=== PATIENT | female | born 1960 | race Caucasian/White ===

== ENCOUNTER 2023-04-02 09:17 | Outpatient (REF) | payer BC, SELFPAY ==
[2023-04-02 11:14] LABS: D Dimer High Sensitivity 184 NG/ML
[2023-04-02 11:49] LABS: Erythrocyte Sedimentation Rate 20 MM/HR (0-20)
[2023-04-02 12:07] LABS: Anion Gap 15 (12-20); Blood Urea Nitrogen 16 mg/dL (9-16); Calcium 10.2 mg/dL (8.4-10.2); Carbon Dioxide 25 mmol/L (22-29); Chloride 105 mmol/L (96-108); Estimated Glomerular Filt Rate > 60; Glucose Random 91 mg/dL (60-115); Potassium 4.2 mmol/L (3.3-5.1); Sodium 141 mmol/L (135-145)
[2023-04-02 15:32] LABS: Basophils Percent Auto 0.9 % (0-2); Eosinophils Absolute Auto 0.1 X10*3/uL (0.0-0.4); Eosinophils Percent Auto 2.5 % (0-4); Hematocrit 38.3 % (37.0-47.0); Hemoglobin 13.1 g/dl (12.0-16.0); Imm Gran Abs Auto 0.01 X10*3/uL (0.00-0.03); Imm Gran Pct Auto 0.2 % (0.0-0.4); Lymphocytes Absolute Auto 1.3 X10*3/uL (1.2-4.9); Lymphocytes Percent Auto 29.2 % (20-40); MANUAL DIFF FLAG NO; Mean Corpuscular HGB Conc 34.2 g/dl (31.0-35.0); Mean Corpuscular Hemoglobin 31.4 pg (27.0-33.0); Mean Corpuscular Volume 91.8 fL (80.0-98.0); Mean Platelet Volume 10.3 fL (9.4-12.3); Monocytes Absolute Auto 0.3 X10*3/uL (0.1-1.2); Monocytes Percent Auto 6.9 % (2-11); Neutrophils Absolute Auto 2.7 x10*3/uL (2.0-8.3); Neutrophils Percent Auto 60.3 % (45-73); Platelet Count 306 X10*3/uL (160-400); Red Blood Count 4.17 X10*6/uL (4.20-5.50); Red Cell Distribution Width 12.6 % (11.0-16.0); White Blood Count 4.5 X10*3/uL (4.8-10.8)
[2023-04-03 04:49] LABS: HIV AB/AG Nonreactive (Nonreactive); HIV Num 1 0.06 S/CO (0.00-0.99)
[2023-04-04 18:04] LABS: IgA 338 mg/dL (47-310); IgG 982 mg/dL (600-1640); IgM 104 mg/dL (50-300)
[2023-04-04 22:13] LABS: Anti Nuclear Antibody Screen POSITIVE (NEGATIVE)
[2023-04-05 16:53] LABS: Anti DNA DS Antibody <1 IU/mL; Antibody to SS-A Antigen <1.0 NEG AI (<1.0 NEG); Antibody to SS-B Antigen <1.0 NEG AI (<1.0 NEG); Myeloperoxidase Antibody <1.0 AI; Proteinase 3 PR3 Antibodies <1.0 AI; Scleroderma 70 Antibody <1.0 NEG AI (<1.0 NEG)
[2023-04-08 15:03] LABS: Angiotensin Converting Enzyme 30.3 U/L (9-67)
[2023-04-11 01:04] LABS: Asperg fumigatus Precip Abs NEGATIVE (NEGATIVE); Micropoly faeni Abs NEGATIVE (NEGATIVE); Pigeon serum Abs NEGATIVE (NEGATIVE); Saccharo pora viridis Abs NEGATIVE (NEGATIVE); Thermo candidus Abs NEGATIVE (NEGATIVE); Thermoa vulgaris #1 NEGATIVE (NEGATIVE)
== END 2023-04-02 09:18 | disposition home or self-care (01) ==
LOC: HO.LAB 09:17
PROVIDERS: PCP Internal Medicine; Visit Provider Hospitalist
DX: Z11.4 Encounter for screening for human immunodeficiency virus [HIV] (principal); J18.9 Pneumonia, unspecified organism; J45.909 Unspecified asthma, uncomplicated; J96.00 Acute respiratory failure, unspecified whether with hypoxia or hypercapnia; R00.0 Tachycardia, unspecified; T78.40XA Allergy, unspecified, initial encounter; R91.8 Other nonspecific abnormal finding of lung field
CPT/HCPCS: 36415; 80048; 82164; 82784; 82785; 85025; 85379; 85652; 86003; 86021; 86038; 86039; 86225; 86235; 86331; 86606; 86609; 87389

== ENCOUNTER 2023-04-25 06:01 | Day surgery (SDC) | payer BC, SELFPAY ==
[2023-04-25] VITALS (7 sets, daily range): BP systolic 95–112; BP diastolic 40–70; PULSE 73–95; RESP 15–18; TEMP 36.2–36.5; O2SAT 96–100; BMI 33.6
--- NOTE | ~2023-04-25 | XR_ITS ---
EXAMINATION: XR CHEST CLINICAL INFORMATION: Status post right lung biopsies COMPARISON: MR chest 08/19/2020 TECHNIQUE: Frontal view of the chest was obtained. FINDINGS: Heart size normal. No evidence of CHF. No pneumothorax is seen. There is mild elevation of the right hemidiaphragm and bibasilar atelectasis. No gross focal consolidation. No pleural effusions. Surgical clips are noted in the gallbladder fossa. Degenerative changes are seen in the spine. XR/XR chest 1V IMPRESSION: No acute intrathoracic disease.
[2023-04-25] MEDS: Lactated Ringers 1,000 ML 100 ML IVCONT (06:37)
--- NOTE | 2023-04-25 07:05 | HO.ANESPROP2 ---
HPI - Anesthesia Eval Consult details Narrative: for bronchoscopy PMFSH Active Problems Active Problems: All Active Problems (Updated 04/02/23 @ 10:07 by Tahir Mendez MD) Asthma (Acute) Allergies (Acute) Acute respiratory failure (Acute) Tachycardia (Acute) ILD (interstitial lung disease) (Acute) Pneumonia (Acute) Past Medical History Medical History Acute respiratory failure Allergies Asthma ILD (interstitial lung disease) Pneumonia Tachycardia Family History Family history of problems with anesthesia: No Surgical History Surgical History (Updated 04/25/23 @ 06:13 by Maude Keith, CAMERON) Hx of breast reduction, elective Hx of cholecystectomy Hx of colonoscopy Hx of esophagogastroduodenoscopy Hx of foot surgery History of Problems with Anesthesia: No Social History Social History (Updated 04/02/23 @ 09:29 by MANNIE French) Patient Tobacco Use Status: Never used Tobacco Use of substances other than those prescribed or required for medical reasons: No Are you DNR?: No Advance Directives: No Advance Directives Information Provided: Yes Meds Allergies Allergy/AdvReac Type Severity Reaction Status Date / Time codeine Allergy Severe Vomiting Verified 04/25/23 06:19 Active Medications: Current Medications Albuterol Sulfate (Albuterol Sulfate (0.083%) 2.5 Mg/3 Ml Vial.Neb) 2.5 mg INHALE ONCE PRN PRN Reason: Shortness of Breath/Wheezing Lactated Ringer's (Lr) 1,000 mls @ 100 mls/hr IVCONT .Q10H MICHELLE Last Admin: 04/25/23 06:37 Dose: 100 mls/hr Home Medications Medication Instructions Recorded Confirmed Last Taken Type albuterol sulfate 90 mcg/actuation 2 puff inhalation Q4-6H PRN 04/02/23 04/25/23 Unknown History aerosol inhaler Shortness Of Breath Or Wheezing bempedoic acid 180 mg tablet 180 mg PO DAILY 04/02/23 04/25/23 Unknown History (Nexletol) aspirin 81 mg tablet 81 mg PO DAILY 04/25/23 04/25/23 Unknown History Exam Exam Date and Time: April 25, 2023 0705 Height,Weight and Vital Signs: Height 5 ft 6 in Weight 94.347 kg Last Vital Signs Temp 97.7 F 04/25/23 06:21 Pulse 86 07/13/23 06:21 Resp 15 04/25/23 06:21 BP 110/63 04/25/23 06:21 Pulse Ox 99 04/25/23 06:21 O2 Del Method Room Air 04/25/23 06:21 Airway Mallampati Class: I TM Dist: >3cm Neck ROM: Full Loose/Missing/Broken Teeth: No Heart: ok Lungs: ok Assessment and Plan Assessment Anesthesia Assessment: Anesthesia Plan Discussed and Chart Reviewed Final Anesthetic Review Family History of Problems with Anesthesia: No History of Problems with Anesthesia: No NPO: Yes ASA Class: III Final Preanesthetic Review: No Changes in Pt Med Stat, Meds/Allgs Chart Reviewed, Consent Obtained/Reviewed and Anes Risks/Benef Reviewed Patient Risk: Intermediate Procedure Risk: Intermediate Anesthetic Plan Anesthetic Plan: GA and Agree w/ Assess. and Plan Disposition: Standard PACU
--- NOTE | 2023-04-25 07:29 | MHC.SHP ---
Pre-Procedural Eval Section A Date of Service: 04/25/23 The patient is an INPATIENT: No Changes since office visit: No Cold of Flu in the past 2 weeks, No New Medical Problems, No Changes in Medication and No Patient answered all questions The History & Physical has been completed within 30 days and I have reviewed it.: Yes Section B Chief Complaint: Pneumonia, unspecified organism Details of Present Illness: 62 y/o with worsening dyspnea. Found to have ILD, not responsive to prednisone Relevant Family History (Specify if Yes): No Relevant Social History: None Present Medications: see Short Stay Collaborative assessment Medical History: No relevant PMH Allergies: Allergies Allergy/AdvReac Type Severity Reaction Status Date / Time codeine Allergy Severe Vomiting Verified 04/25/23 06:19 Review of Systems Sugical H&P ROS: Negative: Constitution, Cardiovascular, Neurological, Psychiatric, Hem-Onc, Allergic/Immunologic, Gastrointestinal and Genitourinary and Yes, Specify: Respiratory (dyspnea) Exam Surgical H&P Exam: Normal: HEENT, Normal: Heart, Normal: Abdomen, Normal: Skin and Normal: Neurological and Significant Findings: Lungs (rales) Plan Diagnosis/Plan: Unchanged (Bronchoscopy) I have reviewed the history and physical and performed a pertinent physical examination on my patient. No changes have occurred unless specified. Time Spent With Patient Time: Total time managing care of this patient today ____ minutes.
[2023-04-25] MEDS: Acetaminophen 325 MG TABLET 650 MG PO (09:05)
--- NOTE | 2023-04-25 09:17 | PM.OP ---
Brief Operative Note Date of Service: 04/25/23 Pre-op diagnosis: ILD Post-op diagnosis: other (ILD, bronchomalecia, ?alveolar hemorrhage) Procedure: Bronchoscopy with trans bronchial biopsies, washings, BAL Implants: Surgeon: Tahir Mendez MD Anesthesia: GLMA Was an Curriculum Advisory Teacher used for this Procedure?: No Estimated blood loss (mL): 1 Pathology: other (RLL transbronchial biopsies) Condition: stable Disposition: same day
[2023-04-25 10:04] LABS: RBC Bronchial Washing 1107 MM*3; WBC Bronchial Washing 30 MM*3
[2023-04-25 10:05] LABS: Lymphocytes Bronchial 28 %; Monocytes Bronchial 4 %; Neutrophils Bronchial 7 %; Other Bronchial 61 %
--- NOTE | 2023-04-25 13:04 | OP_ITS ---
DATE OF SERVICE: 04/25/2023 SURGEON: Tahir Mendez MD PREOPERATIVE DIAGNOSIS: Interstitial lung disease. POSTOPERATIVE DIAGNOSIS: Interstitial lung disease, bronchomalacia, and also a question of alveolar hemorrhage. PROCEDURE PERFORMED: Bronchoscopy with transbronchial biopsies, BAL, and washings. ESTIMATED BLOOD LOSS: COMPLICATIONS: ANESTHESIA: LMA. ASSISTANTS: SPECIMENS: DESCRIPTION OF PROCEDURE: After the patient was adequately sedated, LMA in place, the flexible digital bronchoscope was inserted via LMA to the level of the larynx. The vocal cords moved symmetrically to the midline, and the larynx appeared to be normal in appearance. After instilling the lidocaine, the bronchoscope was then passed to the vocal cords to the level of the trachea. Tracheal mucosa appeared normal and patent. No endotracheal lesions noted. After instilling the additional lidocaine, the bronchoscope was then navigated to the entire tracheobronchial tree. No evidence of any endobronchial lesions or masses. No evidence of any significant secretions or bleeding. There was evidence of significant bronchomalacia. Primarily in the lower lung zones. Some erythema of the airways also noted. Please refer to the pictures. The patient did have extensive contraction of the posterior membrane, which was dynamic in nature causing most of the obstruction. The bronchomalacia was also noted in the lingular area as well. The bronchoscope was navigated to the right middle lobe, where it was washed and then a bronchoalveolar lavage was done with 50 cc of normal saline, withdrew back around 25 cc of normal saline with some frothy secretions and was clear without any significant plugs. We did a second lavage with 30 cc of normal saline. It recovered back very slight salmon looking return suggesting of some blood or hemosiderin. Specimens were then combined and sent for cytology and also for cell count and differential. The bronchoscope was again navigated to the right lower lobe now and using forceps, transbronchial biopsies were collected. It was very challenging because the patient had a very dynamic respiratory effort. We did our best to try to get transbronchial biopsies and alveolar tissue. Numerous times, collecting tissue were done, proximally 9, and all the specimens were placed in formalin for the pathologist. There was slight bit of bleeding and half an ampule of epinephrine was used with good hemostasis. The patient also had bronchial washings bilaterally, sent for microbiology and cytology as well. There was good hemostasis. The bronchoscope was then removed. The total endoscopic time approximately 25 minutes. The patient tolerated the procedure well. Vital signs were stable throughout the procedure. No apparent complications, and postoperative chest x-ray done showing elevated right hemidiaphragm but no evidence of any pneumothorax. MD ANGI Benoit/JEREMIAS / [id number]
== END 2023-04-25 10:04 | disposition home or self-care (01) ==
PROVIDERS: PCP Internal Medicine; Visit Provider Hospitalist
PROC: 0BJ08ZZ Inspection of Tracheobronchial Tree, Via Natural or Artificial Opening Endoscopic (ICD-10-PCS; CPT 31622; principal; 2023-04-25 07:30)
DX: J18.9 Pneumonia, unspecified organism (principal); J98.09 Other diseases of bronchus, not elsewhere classified; J96.00 Acute respiratory failure, unspecified whether with hypoxia or hypercapnia; J45.20 Mild intermittent asthma, uncomplicated; R00.0 Tachycardia, unspecified; Z79.82 Long term (current) use of aspirin; Z79.899 Other long term (current) drug therapy; Z88.8 Allergy status to other drugs, medicaments and biological substances
CPT/HCPCS: 31628; 31624; 71045; 87070; 87102; 87116; 87205; 87206; 88112; 88305; 88313; 89051; J0171; J2370; J2371; J2405; J3010

== ENCOUNTER → 2023-04-25 06:01 | Outpatient (BNV) | payer BC, SELFPAY | PROVIDERS: PCP Internal Medicine; Visit Provider Hospitalist | DX: J84.115 Respiratory bronchiolitis interstitial lung disease (principal) | CPT/HCPCS: 31624; 31625 ==

== ENCOUNTER 2023-05-13 09:46 | Outpatient (REF) | payer BC, SELFPAY ==
[2023-05-15 12:13] LABS: Immunoglobulin E 310 kU/L (<OR=114)
[2023-05-15 13:58] LABS: Anti Glomerular Basement Memb <1.0 AI
== END 2023-05-13 09:47 | disposition home or self-care (01) ==
LOC: HO.LAB 09:46
PROVIDERS: PCP Internal Medicine; Visit Provider Hospitalist
DX: J45.20 Mild intermittent asthma, uncomplicated (principal); T78.40XA Allergy, unspecified, initial encounter; J84.9 Interstitial pulmonary disease, unspecified; J96.00 Acute respiratory failure, unspecified whether with hypoxia or hypercapnia; J84.03 Idiopathic pulmonary hemosiderosis; J98.09 Other diseases of bronchus, not elsewhere classified; R00.0 Tachycardia, unspecified; K21.9 Gastro-esophageal reflux disease without esophagitis
CPT/HCPCS: 36415; 82785; 83520; 86003

== ENCOUNTER 2023-05-13 09:46 | Outpatient (AMB) | payer BC, SELFPAY ==
[2023-05-13 09:48] VITALS: PULSE 77; O2SAT 97; BMI 33.6
--- NOTE | 2023-05-13 09:48 | MHC.OFFVIS ---
Intake Vital Signs 05/13/23 09:48 Height 5 ft 6 in Weight 208 lb BMI 33.6 Pulse 77 Pulse Source Pulse Oximeter Pulse Oximetry (%) 97 Oxygen Delivery Method Room Air Intake Visit Reasons: Bronchoscopy Follow Up Signal Inspector Required: No Allergies codeine Allergy (Severe, Verified 05/13/23 09:49) Vomiting HPI HPI Comments History of Present Illness Details The patient is a 62 year woman with a known history of mild intermittent asthma who apparently was in usual state health until about mid July of 2022 when she started developing symptoms so dyspnea on exertion. She is an avid golfer. She noticed that usually she was able to play the whole gain without any significant respiratory complaints. But then she started developing some increasing shortness of breath specially when going up a small hill. She start using her inhaler more often. Subsequently symptoms got much worse sometime in August where she developed some laryngitis sore throat in addition to the worsening respiratory symptoms. She had gone to an urgent care where she had an x-ray demonstrating bibasilar opacities suggesting bilateral pneumonia. She was given antibiotics and a follow-up with primary care doctor. The patient had a repeat chest x-ray in September and the findings are still there. Her other symptoms such it up but she was still complaining of dyspnea on exertion. She was referred to Pulmonary. Ultimately underwent a CT scan of the chest. The CT scan of the chest was noncontrast. Again demonstrating now the airspace disease primarily at the bases bilaterally. Dense ground-glass areas with consolidation. Also had a cyst in the left upper lung area. The suspicion was that the patient had organizing pneumonia. She was given additional antibiotics in case was infectious and also given prednisone in case it was cryptogenic organizing pneumonia. However, the patient did not take the prednisone from the get go. She was concerned about taking so much steroids. Therefore she completed the antibiotics. She did start the prednisone few days prior to her next CT scan in December of 2022. However, the patient was still symptomatic with shortness of breath and her CT scan of the chest did not demonstrate any significant changes. Therefore she started taking the prednisone more regularly initially prednisone 40 mg daily which she took for about 8 weeks from mid December to Mid February. Then her prednisone was decreased to 20 mg daily until her CT scan that occurred in March 26. The CT scan demonstrated very similar findings with a dense areas of ground-glass in the bases not was increasing reticular changes likely from scarring. During the visit we did go for brief walking oximetry the patient did have increase heart rate up to 115 with minimal activity and the pulse ox did decrease down to about 92% with activity. The patient did not qualify for oxygen. The patient does state that when she is going up hills she has an oximeter and does go to the high 80s when she is really exerting herself. She is no longer on prednisone. The patient does have a rescue inhaler that she uses as needed. As far as medications no real new medications except for the prednisone and her cholesterol medication. We also talked about potential exposures she does not smoke cigarettes and she does not do any vaping or any other inhalational or recreational drugs. She does have a hiatal hernia and she was evaluated by GI with an endoscopy and a colonoscopy. She does have a hot tub but is outside. No other fumes or toxins that she can think of. 05/13/2023 the patient is here for a pulmonary follow-up visit. Overall she is feeling a little better. She still playing golf. Before she would get short of breath and tachypneic after 12 holes of golf. Now she is able to get to 18 which is very happy about. She did start the Symbicort inhaler after the bronchoscopy. Seems like it is helping. She does have some hoarseness therefore will provide with air the AeroChamber. She had hoarseness even before the inhaler was started though. During the bronchoscopy she did have some evidence of inflammation of the larynx likely from coughing a copy also from reflux disease. Also interestingly the airways demonstrate significant bronchomalacia that was not expected with some evidence of bronchitis. In addition to that we did do a BAL from the right middle lobe and did demonstrate some slight pinkish return suggesting some degree of diffuse alveolar hemorrhage. We did request BAL sent for hemosiderin-laden macrophages in there there were indeed present. The findings of hemosiderin-laden macrophages suggest the possibility of a mild vasculitis versus can also be related to lung injury or her interstitial lung conditions that may also resulted in mild hemosiderosis. Therefore, will have her undergo celiac testing which sometimes can result in hemosiderosis as well as other laboratories. Patient also had significant bronchomalacia during the bronchoscopy which was not expected. Again we talked about different differential diagnoses that can result in the bronchomalacia itself. Will go ahead and request the barium swallow to rule out the possibility of underlying reflux disease. Patient is also scheduled to have a repeat CT scan. Clinically the patient is feeling a little better although if the CT scan still demonstrates abnormal findings on the CT scan will consider a surgical biopsy. She did have transbronchial biopsies although is very technically difficult and although we had normal benign bronchial tissue no mention about bronchioalveolar tissue making the biopsies less diagnostic still the normal findings is reassuring. [facility] Medical History (Updated 05/13/23 @ 19:57 by Tahir Mendez MD) Acute respiratory failure Allergies Asthma Bronchomalacia Idiopathic pulmonary hemosiderosis ILD (interstitial lung disease) Pneumonia Tachycardia Surgical History (Updated 04/25/23 @ 06:13 by Maude Keith RN) Hx of breast reduction, elective Hx of cholecystectomy Hx of colonoscopy Hx of esophagogastroduodenoscopy Hx of foot surgery Social History (Updated 04/02/23 @ 09:29 by Eileen Arndt Emily) Patient Tobacco Use Status: Never used Tobacco Review of Systems Const Denies fever(s) Eyes Reports no additional complaints ENT Denies sore throat Card Denies chest pain, Reports palpitations and Reports dyspnea on exertion Resp Denies change in phlegm color, Denies hemoptysis, Denies excessive phlegm production, Reports dyspnea on exertion and Reports wheezing GI Reports dyspepsia Musc Reports myalgias Skin/Breast Reports rash Neuro Reports no additional complaints Endo Reports palpitations Jorge/Lymph Denies easy bleeding, Denies easy bruising and Denies lymphadenopathy Aller/Immun Reports wheezing Physical Exam Vital Signs: Last Vital Signs Pulse 77 05/13/23 09:48 Pulse Ox 97 05/13/23 09:48 Oxygen Delivery Method Room Air 05/13/23 09:48 BMI result Body Mass Index 33.6 Const General: comfortable HEENT Head: Yes normocephalic Neck Neck: Yes supple Chest Chest palpation & inspection: normal inspection of the chest Resp Effort & Inspection: normal respiratory effort Auscultation: no rales and diminished lung sounds Cardio Rate: tachycardic Rhythm: regular rhythm Heart sounds: S1 normal heart sound present and S2 normal heart sound present GI Palpation (GI): Soft to palpation Skin General skin exam: no rashes or lesions noted Extrem General: Yes no clubbing, cyanosis or edema Assessment & Plan Assessment & Plan (1) Asthma: Code(s): J45.909 - Unspecified asthma, uncomplicated (2) Allergies: Code(s): T78.40XA - Allergy, unspecified, initial encounter (3) ILD (interstitial lung disease): Code(s): J84.9 - Interstitial pulmonary disease, unspecified (4) Pneumonia: Code(s): J18.9 - Pneumonia, unspecified organism (5) Bronchomalacia: Code(s): J98.09 - Other diseases of bronchus, not elsewhere classified (6) Idiopathic pulmonary hemosiderosis: Code(s): J84.03 - Idiopathic pulmonary hemosiderosis Plan continue symbicort RICA as needed Reflux diet Barium swallow Repeat CT chest, if still abnormal will recommend a wedge biopsy Bloodwork, r/o Celiac disease, vasculitis F/U 2-3 months Orders: Orders PFT pulmonary function test Today J18.9 - Pneumonia, unspecified organism FL barium swallow Today K21.9 - Gastro-esophageal reflux disease without esophagitis Coding Level of Care Code Est Pt Level 5 (85200) Diagnoses Asthma J45.909 Allergies T78.40XA ILD (interstitial lung disease) J84.9 Pneumonia J18.9 Bronchomalacia J98.09 Idiopathic pulmonary hemosiderosis J84.03 Time Spent (min) 45
== END 2023-05-13 10:15 | disposition home or self-care (01) ==
PROVIDERS: PCP Internal Medicine; Visit Provider Hospitalist
DX: J45.909 Unspecified asthma, uncomplicated (principal); T78.40XA Allergy, unspecified, initial encounter; J84.9 Interstitial pulmonary disease, unspecified; J98.09 Other diseases of bronchus, not elsewhere classified; J84.03 Idiopathic pulmonary hemosiderosis
CPT/HCPCS: 99215

== ENCOUNTER 2023-05-28 07:34 | Outpatient (REF) | payer BC, SELFPAY ==
--- NOTE | ~2023-05-28 | CT_ITS ---
EXAMINATION: CT CHEST WITHOUT CONTRAST CLINICAL INFORMATION: Interstitial lung disease COMPARISON: Previous chest x-ray April 2023 TECHNIQUE: Multidetector volumetric CT imaging of the chest was done. Axial MIP volume rendering provided. Sagittal and coronal reformatted images were obtained. This CT examination was performed using dose optimization techniques as appropriate, variously including the following: *Automated exposure control *Adjustment of mA and/or kV according to patient size (this includes techniques or standardized protocols for targeted exams where dose is matched to indication/reason for exam; i.e. extremities or head) *Use of iterative reconstruction technique DLP: 172 mGy-cm FINDINGS: LUNGS: There are increased reticular markings and increased attenuation seen in the lungs. This is seen both centrally and peripherally. This is greatest in the lower lungs. There is some traction bronchiolectasis seen in both lower lobes. No honeycombing. 2 cm cyst in the left upper lobe. No pulmonary nodule. No endobronchial or endotracheal lesion. MEDIASTINUM: The mediastinum is normal. CORONARY ARTERY CALCIFICATION: None visualized on this study. PLEURA: There is no pleural effusion. No pleural mass or thickening. AXILLA: No lymphadenopathy. UPPER ABDOMEN: Unremarkable. OSSEOUS STRUCTURES: Degenerative changes of the spine. CT/CT chest wo IV con IMPRESSION: Increased reticular markings and attenuation and mild traction bronchiolectasis. This could represent interstitial lung disease. Infectious or inflammatory changes could have similar appearance. Clinical correlation recommended. Fleischner guidelines were followed.
== END 2023-05-28 07:35 | disposition home or self-care (01) ==
LOC: HO.CT 07:34
PROVIDERS: PCP Internal Medicine; Visit Provider Hospitalist
DX: J84.9 Interstitial pulmonary disease, unspecified (principal); J96.00 Acute respiratory failure, unspecified whether with hypoxia or hypercapnia
CPT/HCPCS: 71250

== ENCOUNTER 2023-05-30 10:17 | Outpatient (REF) | payer BC, SELFPAY ==
--- NOTE | ~2023-05-30 | FL_ITS ---
EXAMINATION: XR FLUOROSCOPY ESOPHAGRAM WITH AIR CLINICAL INFORMATION: Interstitial pneumonia, gastroesophageal reflux disease without esophagitis. COMPARISON: None TECHNIQUE: Routine air contrast esophagram was performed during the ingestion of thick and thin barium with effervescent granules. Numerous spot images were obtained. FINDINGS: The oral pharyngeal and hypopharyngeal swallowing reflex appear normal. No evidence of aspiration or laryngeal penetration. Normal epiglottic movement and soft palate elevation. The esophagus has normal caliber and contour. No mass, stricture, or mucosal lesion appreciated. Esophageal motility appeared normal. No hiatus hernia present. Minimal gastroesophageal reflux was evident during the course the examination spanning 3 thoracic vertebral bodies. Images of the stomach, duodenal bulb, duodenal sweep, and proximal small bowel appear normal. FLUOROSCOPY TIME: 3.5 minutes 26 images obtained. DOSE AREA PRODUCT: 40.728 uGy-m2 (microgray-meter squared) FL/FL barium swallow with air IMPRESSION: 1. Minimal GE reflux. No hiatus hernia. Esophagus otherwise normal. 2. Examination otherwise normal.
== END 2023-05-30 10:18 | disposition home or self-care (01) ==
LOC: HO.XRAY 10:17
PROVIDERS: PCP Internal Medicine; Visit Provider Hospitalist
DX: K21.9 Gastro-esophageal reflux disease without esophagitis (principal)
CPT/HCPCS: 74221

== ENCOUNTER → 2023-05-30 10:19 | Outpatient (BNV) | payer BC, SELFPAY | PROVIDERS: PCP Internal Medicine; Visit Provider Radiology Diagnostic Radiology | DX: K21.9 Gastro-esophageal reflux disease without esophagitis (principal) | CPT/HCPCS: 74221 ==

== ENCOUNTER 2023-05-31 10:06 | Outpatient (AMB) | payer BC, SELFPAY ==
[2023-05-31 10:40] VITALS: BP 100/60; PULSE 74; O2SAT 99; BMI 33.1
--- NOTE | 2023-05-31 10:40 | A.OFFVIS_ITS ---
Intake Vital Signs 05/31/23 10:40 Height 5 ft 6 in Weight 205 lb BMI 33.1 BP 100/60 Blood Pressure Location Lt brachial Position Sitting Pulse 74 Pulse Oximetry (%) 99 Intake Visit Reasons: Abnormal CT scan Allergies codeine Allergy (Severe, Verified 05/31/23 10:41) Vomiting Medication List - Last Reconciled 05/31/23 by Leonel Pedroza MD albuterol sulfate 90 mcg/actuation 2 puffs inhalation Q4-6H PRN aspirin 81 mg PO DAILY bempedoic acid (Nexletol) 180 mg PO DAILY Symbicort 160-4.5 mcg/actuation (budesonide-formoterol) 2 puffs inhalation BID 30 days NS HPI Abnormal CT scan HPI Details 62 year old non smoker who walks the golf course regularly about a year ago started noticing sob that progressively got worse over time. She thinks it has at least stabilized from a breathing standpoint and notes that she does not get the palpitations she was getting at first. CT scan of the chest done in january and march of this year shows persistent b/l lower lobe infiltrative process with some mild bronchiectesis. Hematologic work up has been negative and a bronchoscopy was done which showed broncialmalacia but did not reveal any etiol ogy for her changes in the lungs and sob. She reports sob with activity, denies cough or hemptysis. no fevers, chills or unintentional weight loss. [facility] Medical History Acute respiratory failure Allergies Asthma Bronchomalacia Idiopathic pulmonary hemosiderosis ILD (interstitial lung disease) Pneumonia Tachycardia Surgical History History of abdominoplasty (~2020) History of bilateral breast reduction surgery (~2020) History of bronchoscopy History of cholecystectomy (~2015) History of colonoscopy History of esophagogastroduodenoscopy (EGD) History of foot surgery Social History Patient Tobacco Use Status: Never used Tobacco Physical Exam Vital Signs: Last Vital Signs Pulse 74 05/31/23 10:40 BP 100/60 05/31/23 10:40 Pulse Ox 99 08/18/23 10:40 BMI result Body Mass Index 33.1 nad rrr ctab abd soft no edema Assessment & Plan Assessment & Plan (1) Idiopathic pulmonary hemosiderosis: Code(s): J84.03 - Idiopathic pulmonary hemosiderosis Plan: Discussed the findings on her CT scan in detail as well as bronchoscopy and blood work results. I also discussed this with her pumlonologist here. We discussed ILD in general and the many different causes for it including inflammatory, autoimmune, or fibrotic. The next option for diagnosis is for wedge lung biopsies and I explained the r/b/a of harmony wedge lung biopsies which she understood. She does want to consider this but wants the think about it some more. If she decides to proceed with this will book for early September with a CT scan prior (in August). If not would follow her symptomatically and with a CT scan in September some amita. She will call us with how she wants to proceed. (2) ILD (interstitial lung disease): Code(s): J84.9 - Interstitial pulmonary disease, unspecified Plan: see above (3) Bronchomalacia: Code(s): J98.09 - Other diseases of bronchus, not elsewhere classified Plan: the bronchomalacia seems pretty distal and probably a secondary finding but depending on the biopsy results may investigate this further. Coding Level of Care Code New Pt Level 5 (35991) Diagnoses Idiopathic pulmonary hemosiderosis J84.03 ILD (interstitial lung disease) J84.9 Bronchomalacia J98.09
== END 2023-05-31 11:06 | disposition home or self-care (01) ==
PROVIDERS: PCP Internal Medicine; Visit Provider Surgery
DX: J84.03 Idiopathic pulmonary hemosiderosis (principal); J84.9 Interstitial pulmonary disease, unspecified; J98.09 Other diseases of bronchus, not elsewhere classified

== ENCOUNTER → 2023-05-31 10:06 | Outpatient (BNVA) | payer BC, SELFPAY | PROVIDERS: PCP Internal Medicine; Visit Provider Surgery | DX: J84.9 Interstitial pulmonary disease, unspecified (principal); J84.03 Idiopathic pulmonary hemosiderosis; J98.09 Other diseases of bronchus, not elsewhere classified | CPT/HCPCS: 99202 ==

== ENCOUNTER 2023-07-08 09:12 | Outpatient (AMB) | payer BC, SELFPAY ==
--- NOTE | 2023-07-08 09:17 | A.OFFVIS_ITS ---
Intake Vital Signs 3 07/08/23 09:19 Height 5 ft 6 in Weight 208 lb BMI 33.6 Pulse 78 Pulse Source Pulse Oximeter Pulse Oximetry (%) 97 Oxygen Delivery Method Room Air Intake Visit Reasons: BOOP Counter Hop Required: No Allergies codeine Allergy (Severe, Verified 07/08/23 09:20) Vomiting HPI HPI Comments 2 History of Present Illness0 Details The patient is a 63 year woman with a known history of mild intermittent asthma who apparently was in usual state health until about mid July of 2022 when she started developing symptoms so dyspnea on exertion. She is an avid golfer. She noticed that usually she was able to play the whole gain without any significant respiratory complaints. But then she started developing some increasing shortness of breath specially when going up a small hill. She start using her inhaler more often. Subsequently symptoms got much worse sometime in August where she developed some laryngitis sore throat in addition to the worsening respiratory symptoms. She had gone to an urgent care where she had an x-ray demonstrating bibasilar opacities suggesting bilateral pneumonia. She was given antibiotics and a follow-up with primary care doctor. The patient had a repeat chest x-ray in September and the findings are still there. Her other symptoms such it up but she was still complaining of dyspnea on exertion. She was referred to Pulmonary. Ultimately underwent a CT scan of the chest. The CT scan of the chest was noncontrast. Again demonstrating now the airspace disease primarily at the bases bilaterally. Dense ground-glass areas with consolidation. Also had a cyst in the left upper lung area. The suspicion was that the patient had organizing pneumonia. She was given additional antibiotics in case was infectious and also given prednisone in case it was cryptogenic organizing pneumonia. However, the patient did not take the prednisone from the get go. She was concerned about taking so much steroids. Therefore she completed the antibiotics. She did start the prednisone few days prior to her next CT scan in December of 2022. However, the patient was still symptomatic with shortness of breath and her CT scan of the chest did not demonstrate any significant changes. Therefore she started taking the prednisone more regularly initially prednisone 40 mg daily which she took for about 8 weeks from mid December to Mid February. Then her prednisone was decreased to 20 mg daily until her CT scan that occurred in March 26. The CT scan demonstrated very similar findings with a dense areas of ground-glass in the bases not was increasing reticular changes likely from scarring. During the visit we did go for brief walking oximetry the patient did have increase heart rate up to 115 with minimal activity and the pulse ox did decrease down to about 92% with activity. The patient did not qualify for oxygen. The patient does state that when she is going up hills she has an oximeter and does go to the high 80s when she is really exerting herself. She is no longer on prednisone. The patient does have a rescue inhaler that she uses as needed. As far as medications no real new medications except for the prednisone and her cholesterol medication. We also talked about potential exposures she does not smoke cigarettes and she does not do any vaping or any other inhalational or recreational drugs. She does have a hiatal hernia and she was evaluated by GI with an endoscopy and a colonoscopy. She does have a hot tub but is outside. No other fumes or toxins that she can think of. 05/13/2023 the patient is here for a pulm onary follow-up visit. Overall she is feeling a little better. She still playing golf. Before she would get short of breath and tachypneic after 12 holes of golf. Now she is able to get to 18 which is very happy about. She did start the Symbicort inhaler after the bronchoscopy. Seems like it is helping. She does have some hoarseness therefore will provide with air the AeroChamber. She had hoarseness even before the inhaler was started though. During the bronchoscopy she did have some evidence of inflammation of the larynx likely from coughing a copy also from reflux disease. Also interestingly the airways demonstrate significant bronchomalacia that was not expected with some evidence of bronchitis. In addition to that we did do a BAL from the right middle lobe and did demonstrate some slight pinkish return suggesting some degree of diffuse alveolar hemorrhage. We did request BAL sent for hemosiderin-laden macrophages in there there were indeed present. The findings of hemosiderin-laden macrophages suggest the possibility of a mild vasculitis versus can also be related to lung injury or her interstitial lung conditions that may also resulted in mild hemosiderosis. Therefore, will have her undergo celiac testing which sometimes can result in hemosiderosis as well as other laboratories. Patient also had significant bronchomalacia during the bronchoscopy which was not expected. Again we talked about different differential diagnoses that can result in the bronchomalacia itself. Will go ahead and request the barium swallow to rule out the possibility of underlying reflux disease. Patient is also scheduled to have a repeat CT scan. Clinically the patient is feeling a little better although if the CT scan still demonstrates abnormal findings on the CT scan will consider a surgical biopsy. She did have transbronchial biopsies although is very technically difficult and although we had normal benign bronchial tissue no mention about bronchioalveolar tissue making the biopsies less diagnostic still the normal findings is reassuring. 07/08/2023 the patient is here for a pulm onary follow-up visit. The patient did follow-up with thoracic surgery but opted on not having a biopsy as of yet. Therefore, we made a referral to [facility] for her to get a 2nd opinion there. As far as her breathing is about the same. Still complaining of dyspnea on exertion. [id number] severity. She has not noticed any significant improvement or worsening sense back in December 2022. Prior to that she had gone to [place] and did she did undergo a holistic type of therapy that provide her some relief at least from the pleuritic chest pain. We again reviewed her biopsy results which although were reassuring were nondiagnostic. She did talk about considering a cryo biopsy instead of a wedge biopsy. I explained to her that her interstitial lung disease pretty peripheral and also on the basis. Also during the bronchoscopy that I performed she had a lot of dynamic movement of her diaphragm making it difficult to safely biopsy the peripheral parenchyma. I do believe that if she wants a definitive answer it would be best provided with a wedge biopsy. Also she has been seen sick for about a year ready and therefore I would think that a more definitive intervention would be indicated. Her last CT scan of the chest was done back in May 2023. Again demonstrating the bibasilar airspace disease with some errands of ground-glass but no honeycombing noted. The differential includes IPF, chronic hypersensitivity pneumonitis and also fibrotic NSIP. But not believe that this is cryptogenic organizing pneumonia based on the fact that he just has not responded to corticosteroid therapy. The patient also has significant allergies with an elevated IgE. We did discuss staring Xolair in the future once her ILD workup was established. [facility] Medical History Acute respiratory failure Allergies Asthma Bronchomalacia Idiopathic pulmonary hemosiderosis ILD (interstitial lung disease) Pneumonia Tachycardia Surgical History History of abdominoplasty (~2020) History of bilateral breast reduction surgery (~2020) History of bronchoscopy History of cholecystectomy (~2015) History of colonoscopy History of esophagogastroduodenoscopy (EGD) History of foot surgery Social History Patient Tobacco Use Status: Never used Tobacco Review of Systems Const Denies fever(s) Eyes Reports no additional complaints ENT Denies sore throat Card Denies chest pain, Reports palpitations and Reports dyspnea on exertion Resp Denies change in phlegm color, Denies hemoptysis, Denies excessive phlegm production, Reports dyspnea on exertion and Denies wheezing GI Reports dyspepsia Musc Reports myalgias Skin/Breast Denies rash Neuro Reports no additional complaints Endo Reports palpitations Jorge/Lymph Denies easy bleeding, Denies easy bruising and Denies lymphadenopathy Aller/Immun Denies wheezing Physical Exam Vital Signs: Last Vital Signs Pulse 78 07/08/23 09:19 Pulse Ox 97 07/08/23 09:19 Oxygen Delivery Method Room Air 07/08/23 09:19 BMI result Body Mass Index 33.6 Const General: comfortable HEENT Head: Yes normocephalic Neck Neck: Yes supple Chest Chest palpation & inspection: normal inspection of the chest Resp Effort & Inspection: normal respiratory effort Auscultation: no rales and diminished lung sounds Cardio Rate: tachycardic Rhythm: regular rhythm Heart sounds: S1 normal heart sound present and S2 normal heart sound present GI Palpation (GI): Soft to palpation Skin General skin exam: no rashes or lesions noted Extrem General: Yes no clubbing, cyanosis or edema Results Reviewed Results Reviewed: Assessment & Plan Assessment & Plan (1) Asthma: Code(s): J45.909 - Unspecified asthma, uncomplicated Qualifiers: Asthma severity: moderate Asthma persistence: persistent Asthma complication type: uncomplicated Qualified Code(s): J45.40 - Moderate persistent asthma, uncomplicated (2) Allergies: Code(s): T78.40XA - Allergy, unspecified, initial encounter Qualifiers: Encounter type: subsequent encounter Qualified Code(s): T78.40XD - Allergy, unspecified, subsequent encounter (3) ILD (interstitial lung disease): Code(s): J84.9 - Interstitial pulmonary disease, unspecified (4) Bronchomalacia: Comment: based on bronchoscopy Code(s): J98.09 - Other diseases of bronchus, not elsewhere classified (5) Idiopathic pulmonary hemosiderosis: Code(s): J84.03 - Idiopathic pulmonary hemosiderosis Plan Would benefit from lung biopsy to determine etiology and subsequent management. Extensive bloodwork and transbronchial biospsies non diagnostic up this pont. She would benefit from a more definitive diagnosis, such as VATS with wedge biopsies continue symbicort RICA as needed consider Xolair if no better Reflux diet Awaiting [facility] referral F/U 3-4 months Coding Level of Care Code Est Pt Level 4 (43441) Diagnoses Moderate persistent asthma without complication J45.40 Asthma severity: moderate Asthma persistence: persistent Asthma complication type: uncomplicated Allergy, subsequent encounter T78.40XD Encounter type: subsequent encounter ILD (interstitial lung disease) J84.9 Bronchomalacia J98.09 Idiopathic pulmonary hemosiderosis J84.03 Time Spent (min) 18
[2023-07-08 09:19] VITALS: PULSE 78; O2SAT 97; BMI 33.6
== END 2023-07-08 09:47 | disposition home or self-care (01) ==
PROVIDERS: PCP Internal Medicine; Visit Provider Hospitalist
DX: J45.40 Moderate persistent asthma, uncomplicated (principal); T78.40XD Allergy, unspecified, subsequent encounter; J84.9 Interstitial pulmonary disease, unspecified; J98.09 Other diseases of bronchus, not elsewhere classified; J84.03 Idiopathic pulmonary hemosiderosis
CPT/HCPCS: 99214

== ENCOUNTER → 2023-07-08 09:12 | Outpatient (BNVA) | payer BC, SELFPAY | PROVIDERS: PCP Internal Medicine; Visit Provider Hospitalist | DX: J18.9 Pneumonia, unspecified organism (principal) ==

== ENCOUNTER 2023-11-06 08:54 | Outpatient (AMB) | payer BC, SELFPAY ==
--- NOTE | 2023-11-06 09:00 | MHC.OFFVIS ---
Intake Vital Signs 11/06/23 09:01 Height 5 ft 6 in Weight 207 lb 14.334 oz BMI 33.6 Pulse 88 Pulse Source Pulse Oximeter Pulse Oximetry (%) 98 Oxygen Delivery Method Room Air Intake Visit Reasons: BOOP Allergies codeine Allergy (Severe, Verified 11/06/23 09:02) Vomiting HPI HPI Comments History of Present Illness Details The patient is a 63 year woman with a known history of mild intermittent asthma who apparently was in usual state health until about mid July of 2022 when she started developing symptoms so dyspnea on exertion. She is an avid golfer. She noticed that usually she was able to play the whole gain without any significant respiratory complaints. But then she started developing some increasing shortness of breath specially when going up a small hill. She start using her inhaler more often. Subsequently symptoms got much worse sometime in August where she developed some laryngitis sore throat in addition to the worsening respiratory symptoms. She had gone to an urgent care where she had an x-ray demonstrating bibasilar opacities suggesting bilateral pneumonia. She was given antibiotics and a follow-up with primary care doctor. The patient had a repeat chest x-ray in September and the findings are still there. Her other symptoms such it up but she was still complaining of dyspnea on exertion. She was referred to Pulmonary. Ultimately underwent a CT scan of the chest. The CT scan of the chest was noncontrast. Again demonstrating now the airspace disease primarily at the bases bilaterally. Dense ground-glass areas with consolidation. Also had a cyst in the left upper lung area. The suspicion was that the patient had organizing pneumonia. She was given additional antibiotics in case was infectious and also given prednisone in case it was cryptogenic organizing pneumonia. However, the patient did not take the prednisone from the get go. She was concerned about taking so much steroids. Therefore she completed the antibiotics. She did start the prednisone few days prior to her next CT scan in December of 2022. However, the patient was still symptomatic with shortness of breath and her CT scan of the chest did not demonstrate any significant changes. Therefore she started taking the prednisone more regularly initially prednisone 40 mg daily which she took for about 8 weeks from mid December to Mid February. Then her prednisone was decreased to 20 mg daily until her CT scan that occurred in March 26. The CT scan demonstrated very similar findings with a dense areas of ground-glass in the bases not was increasing reticular changes likely from scarring. During the visit we did go for brief walking oximetry the patient did have increase heart rate up to 115 with minimal activity and the pulse ox did decrease down to about 92% with activity. The patient did not qualify for oxygen. The patient does state that when she is going up hills she has an oximeter and does go to the high 80s when she is really exerting herself. She is no longer on prednisone. The patient does have a rescue inhaler that she uses as needed. As far as medications no real new medications except for the prednisone and her cholesterol medication. We also talked about potential exposures she does not smoke cigarettes and she does not do any vaping or any other inhalational or recreational drugs. She does have a hiatal hernia and she was evaluated by GI with an endoscopy and a colonoscopy. She does have a hot tub but is outside. No other fumes or toxins that she can think of. 05/13/2023 the patient is here for a pulmonary follow-up visit. Overall she is feeling a little better. She still playing golf. Before she would get short of breath and tachypneic after 12 holes of golf. Now she is able to get to 18 which is very happy about. She did start the Symbicort inhaler after the bronchoscopy. Seems like it is helping. She does have some hoarseness therefore will provide with air the AeroChamber. She had hoarseness even before the inhaler was started though. During the bronchoscopy she did have some evidence of inflammation of the larynx likely from coughing a copy also from reflux disease. Also interestingly the airways demonstrate significant bronchomalacia that was not expected with some evidence of bronchitis. In addition to that we did do a BAL from the right middle lobe and did demonstrate some slight pinkish return suggesting some degree of diffuse alveolar hemorrhage. We did request BAL sent for hemosiderin-laden macrophages in there there were indeed present. The findings of hemosiderin-laden macrophages suggest the possibility of a mild vasculitis versus can also be related to lung injury or her interstitial lung conditions that may also resulted in mild hemosiderosis. Therefore, will have her undergo celiac testing which sometimes can result in hemosiderosis as well as other laboratories. Patient also had significant bronchomalacia during the bronchoscopy which was not expected. Again we talked about different differential diagnoses that can result in the bronchomalacia itself. Will go ahead and request the barium swallow to rule out the possibility of underlying reflux disease. Patient is also scheduled to have a repeat CT scan. Clinically the patient is feeling a little better although if the CT scan still demonstrates abnormal findings on the CT scan will consider a surgical biopsy. She did have transbronchial biopsies although is very technically difficult and although we had normal benign bronchial tissue no mention about bronchioalveolar tissue making the biopsies less diagnostic still the normal findings is reassuring. 07/08/2023 the patient is here for a pulmonary follow-up visit. The patient did follow-up with thoracic surgery but opted on not having a biopsy as of yet. Therefore, we made a referral to [facility] for her to get a 2nd opinion there. As far as her breathing is about the same. Still complaining of dyspnea on exertion. [id number] severity. She has not noticed any significant improvement or worsening sense back in December 2022. Prior to that she had gone to [place] and did she did undergo a holistic type of therapy that provide her some relief at least from the pleuritic chest pain. We again reviewed her biopsy results which although were reassuring were nondiagnostic. She did talk about considering a cryo biopsy instead of a wedge biopsy. I explained to her that her interstitial lung disease pretty peripheral and also on the basis. Also during the bronchoscopy that I performed she had a lot of dynamic movement of her diaphragm making it difficult to safely biopsy the peripheral parenchyma. I do believe that if she wants a definitive answer it would be best provided with a wedge biopsy. Also she has been seen sick for about a year ready and therefore I would think that a more definitive intervention would be indicated. Her last CT scan of the chest was done back in May 2023. Again demonstrating the bibasilar airspace disease with some errands of ground-glass but no honeycombing noted. The differential includes IPF, chronic hypersensitivity pneumonitis and also fibrotic NSIP. But not believe that this is cryptogenic organizing pneumonia based on the fact that he just has not responded to corticosteroid therapy. The patient also has significant allergies with an elevated IgE. We did discuss staring Xolair in the future once her ILD workup was established. 11/06/2023 the patient is here for a pulmonary follow-up visit. Overall she is doing fairly well from a respiratory status. Denies any significant shortness of breath at rest. She does have some dyspnea with activity. Mild in severity. She has been exercising regular basis. The patient did follow-up in [place]. She has been very happy with her experience. 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 She has been having some hip discomfort she is wondering if that musculoskeletal symptoms could be related to the underlying connective tissue disease. The recommendation was for her to get vaccinated for both shingles and RSV as well as flu and dentist start mycophenolate. The patient did have PFTs and also a CT scan in [place]. She is going to follow closely there as well. From an asthma standpoint the patient seems to be doing okay her IgE levels were elevated but seems like her asthma symptoms are better. During the visit we did go for brief walking oximetry should maintain a pulse ox 96%. This is reassuring. We also talked about the importance of pulmonary rehabilitation. We also talked about antifibrotic agents in case the fibrosis gets worse but at this point is been reassuring that he has not significantly changed based on the CT scans that we have. 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 Asthma Allergies Acute respiratory failure Tachycardia ILD (interstitial lung disease) Pneumonia Surgical History History of abdominoplasty (~2020) History of foot surgery History of bilateral breast reduction surgery (~2020) History of esophagogastroduodenoscopy (EGD) History of colonoscopy History of cholecystectomy (~2015) History of bronchoscopy Social History Patient Tobacco Use Status: Never used Tobacco Review of Systems Const Denies fever(s) Eyes Reports no additional complaints ENT Denies sore throat Card Denies chest pain, Denies palpitations and Reports dyspnea on exertion Resp Denies change in phlegm color, Denies hemoptysis, Denies excessive phlegm production, Reports dyspnea on exertion and Denies wheezing GI Reports dyspepsia Musc Reports myalgias Skin/Breast Denies rash Neuro Reports no additional complaints Endo Denies palpitations Jorge/Lymph Denies easy bleeding, Denies easy bruising and Denies lymphadenopathy Aller/Immun Denies wheezing Physical Exam Vital Signs: Last Vital Signs Pulse 88 11/06/23 09:01 Pulse Ox 98 11/06/23 09:01 Oxygen Delivery Method Room Air 11/06/23 09:01 BMI result Body Mass Index 33.6 Const General: comfortable HEENT Head: Yes normocephalic Neck Neck: Yes supple Chest Chest palpation & inspection: normal inspection of the chest Resp Effort & Inspection: normal respiratory effort Auscultation: no rales and diminished lung sounds Cardio Rate: tachycardic Rhythm: regular rhythm Heart sounds: S1 normal heart sound present and S2 normal heart sound present GI Palpation (GI): Soft to palpation Skin General skin exam: no rashes or lesions noted Extrem General: Yes no clubbing, cyanosis or edema Assessment & Plan Assessment & Plan (1) Asthma: Code(s): J45.909 - Unspecified asthma, uncomplicated Qualifiers: Asthma severity: moderate Asthma persistence: persistent Asthma complication type: uncomplicated Qualified Code(s): J45.40 - Moderate persistent asthma, uncomplicated (2) Allergies: Code(s): T78.40XA - Allergy, unspecified, initial encounter Qualifiers: Encounter type: subsequent encounter Qualified Code(s): T78.40XD - Allergy, unspecified, subsequent encounter (3) ILD (interstitial lung disease): Comment: ?NSIP Code(s): J84.9 - Interstitial pulmonary disease, unspecified (4) Bronchomalacia: Comment: based on bronchoscopy Code(s): J98.09 - Other diseases of bronchus, not elsewhere classified (5) 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 Will continue to F/U with 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
[2023-11-06 09:01] VITALS: PULSE 88; O2SAT 98; BMI 33.6
== END 2023-11-06 09:28 | disposition home or self-care (01) ==
PROVIDERS: PCP Internal Medicine; Visit Provider Hospitalist
DX: J45.40 Moderate persistent asthma, uncomplicated (principal); T78.40XD Allergy, unspecified, subsequent encounter; J84.9 Interstitial pulmonary disease, unspecified; J98.09 Other diseases of bronchus, not elsewhere classified; D89.89 Other specified disorders involving the immune mechanism, not elsewhere classified
CPT/HCPCS: 99214

== ENCOUNTER → 2023-11-06 08:54 | Outpatient (BNVA) | payer BC, SELFPAY | PROVIDERS: PCP Internal Medicine; Visit Provider Hospitalist | DX: J18.9 Pneumonia, unspecified organism (principal) ==

== ENCOUNTER 2024-06-24 08:59 | Outpatient (AMB) | payer BC, SELFPAY ==
--- NOTE | 2024-06-24 09:02 | A.OFFVIS_ITS ---
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 She is an avid golfer. She noticed that usually she was able to play the whole gain without any significant respiratory complaints. But then she started developing some increasing shortness of breath specially when going up a small hill. She start using her inhaler more often. Subsequently symptoms got much worse sometime in August where she developed some laryngitis sore throat in addition to the worsening respiratory symptoms. She had gone to an urgent care where she had an x-ray demonstrating bibasilar opacities suggesting bilateral pneumonia. She was given antibiotics and a follow-up with primary care doctor. The patient had a repeat chest x-ray in September and the findings are still there. Her other symptoms such it up but she was still complaining of dyspnea on exertion. She was referred to Pulmonary. Ultimately underwent a CT scan of the chest. The CT scan of the chest was noncontrast. Again demonstrating now the airspace disease primarily at the bases bilaterally. Dense ground-glass areas with consolidation. Also had a cyst in the left upper lung area. The suspicion was that the patient had organizing pneumonia. She was given additional antibiotics in case was infectious and also given prednisone in case it was cryptogenic organizing pneumonia. However, the patient did not take the prednisone from the get go. She was concerned about taking so much steroids. Therefore she completed the antibiotics. She did start the prednisone few days prior to her next CT scan in December of 2022. However, the patient was still symptomatic with shortness of breath and her CT scan of the chest did not demonstrate any significant changes. Therefore she started taking the prednisone more regularly initially prednisone 40 mg daily which she took for about 8 weeks from mid December to Mid February. Then her prednisone was decreased to 20 mg daily until her CT scan that occurred in March 26. The CT scan demonstrated very similar findings with a dense areas of ground-glass in the bases not was increasing reticular changes likely from scarring. During the visit we did go for brief walking oximetry the patient did have increase heart rate up to 115 with minimal activity and the pulse ox did decrease down to about 92% with activity. The patient did not qualify for oxygen. The patient does state that when she is going up hills she has an oximeter and does go to the high 80s when she is really exerting herself. She is no longer on prednisone. The patient does have a rescue inhaler that she uses as needed. As far as medications no real new medications except for the prednisone and her cholesterol medication. We also talked about potential exposures she does not smoke cigarettes and she does not do any vaping or any other inhalational or recreational drugs. She does have a hiatal hernia and she was evaluated by GI with an endoscopy and a colonoscopy. She does have a hot tub but is outside. No other fumes or toxins that she can think of. 05/13/2023 the patient is here for a pulmonary follow-up visit. Overall she is feeling a little better. She still playing golf. Before she would get short of breath and tachypneic after 12 holes of golf. Now she is able to get to 18 which is very happy about. She did start the Symbicort inhaler after the bron choscopy. Seems like it is helping. She does have some hoarseness therefore will provide with air the AeroChamber. She had hoarseness even before the inhaler was started though. During the bronchoscopy she did have some evidence of inflammation of the larynx likely from coughing a copy also from reflux disease. Also interestingly the airways demonstrate significant bronchomalacia that was not expected with some evidence of bronchitis. In addition to that we did do a BAL from the right middle lobe and did demonstrate some slight pinkish return suggesting some degree of diffuse alveolar hemorrhage. We did request BAL sent for hemosiderin-laden macrophages in there there were indeed present. The findings of hemosiderin-laden macrophages suggest the possibility of a mild vasculitis versus can also be related to lung injury or her interstitial lung conditions that may also resulted in mild hemosiderosis. Therefore, will have her undergo celiac testing which sometimes can result in hemosiderosis as well as other laboratories. Patient also had significant bronchomalacia during the bronchoscopy which was not expected. Again we talked about different differential diagnoses that can result in the bronchomalacia itself. Will go ahead and request the barium swallow to rule out the possibility of underlying reflux disease. Patient is also scheduled to have a repeat CT scan. Clinically the patient is feeling a little better although if the CT scan still demonstrates abnormal findings on the CT scan will consider a surgical biopsy. She did have transbronchial biopsies although is very technically difficult and although we had normal benign bronchial tissue no mention about bronchioalveolar tissue making the biopsies less diagnostic still the normal findings is reassuring. 07/08/2023 the patient is here for a pulmonary follow-up visit. The patient did follow-up with thoracic surgery but opted on not having a biopsy as of yet. Therefore, we made a referral to [facility] for her to get a 2nd opinion there. As far as her breathing is about the same. Still complaining of dyspnea on exertion. [id number] severity. She has not noticed any signi ficant improvement or worsening sense back in December 2022. Prior to that she had gone to [place] and did she did undergo a holistic type of therapy that provide her some relief at least from the pleuritic chest pain. We again reviewed her biopsy results which although were reassuring were nondiagnostic. She did talk about considering a cryo biopsy instead of a wedge biopsy. I explained to her that her interstitial lung disease pretty peripheral and also on the basis. Also during the bronchoscopy that I performed she had a lot of dynamic movement of her diaphragm making it difficult to safely biopsy the peripheral parenchyma. I do believe that if she wants a definitive answer it would be best provided with a wedge biopsy. Also she has been seen sick for about a year ready and therefore I would think that a more definitive intervention would be indicated. Her last CT scan of the chest was done back in May 2023. Again demonstrating the bibasilar airspace disease with some errands of ground-glass but no honeycombing noted. The differential includes IPF, chronic hypersensitivity pneumonitis and also fibrotic NSIP. But not believe that this is cryptogenic organizing pneumonia based on the fact that he just has not responded to corticosteroid therapy. The patient also has significant allergies with an elevated IgE. We did discuss staring Xolair in the future once her ILD workup was established. 11/06/2023 the patient is here for a pulmonary follow-up visit. Overall she is doing fairly well from a respiratory status. Denies any significant shortness of breath at rest. She does have some dyspnea with activity. Mild in severity. She has been exercising regular basis. The patient did follow-up in [place]. She has been very happy with her experience. 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 She has been having some hip discomfort she is wondering if that musculoskeletal symptoms could be related to the underlying connective tissue disease. The recommendation was for her to get vaccinated for both shingles and RSV as well as flu and dentist start mycophenolate. The patient did have PFTs and also a CT scan in [place]. She is going to follow closely there as well. From an asthma standpoint the patient seems to be doing okay her IgE levels were elevated but seems like her asthma symptoms are better. During the visit we did go for brief walking oximetry should maintain a pulse ox 96%. This is reassuring. We also talked about the importance of pulmonary rehabilitation. We also talked about antifibrotic agents in case the fibrosis gets worse but at this point is been reassuring that he has not significantly changed based on the CT scans that we have. 06/24/2024 the patient is here for a pulmonary follow-up visit. Overall she is doing okay. She is on the full dose of mycophenolate 1500 mg twice a day. She is tolerating it well without any adverse effects. She is being monitored closely every 3-4 months at [facility]. The patient has not had to use her rescue inhaler as often and she stopped using the Symbicort which is reassuring. She is back to exercising and playing golf. Although she still has a hard time going up a flight of stairs. We did go for brief walking oximetry in the office and going up a flight of stairs her oxygen oxygen was great at 97%. But heart rate increased quickly to 140 beats per minute and she was visibly dyspneic hard to speak in full sentence. 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 The patient has not been a candidate for office since then has not been any worsening of disease and also has not required any additional immunosuppression at this time. She does have Rheumatology in [place] as well, although, I do believe that a local dean of students would also be helpful in order to follow her. The patient also has had pulmonary function studies. I do believe that she would be a great candidate for pulmonary rehabilitation. Will go ahead and request a stress echo to assess for exercise-induced pulmonary hypertension and will see about getting her in to pulmonary rehabilitation at this time. 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 Asthma Allergies Acute respiratory failure Tachycardia ILD (interstitial lung disease) Pneumonia Surgical History History of abdominoplasty (~2020) History of foot surgery History of bilateral breast reduction surgery (~2020) History of esophagogastroduodenoscopy (EGD) History of colonoscopy History of cholecystectomy (~2015) History of bronchoscopy Social History Patient Tobacco Use Status: Never used Tobacco Review of Systems Const Denies fever(s) Eyes Reports no additional complaints ENT Denies sore throat Card Denies chest pain, Reports palpitations and Reports dyspnea on exertion Resp Denies change in phlegm color, Denies hemoptysis, Denies excessive phlegm production, Reports dyspnea on exertion and Denies wheezing GI Reports dyspepsia Musc Reports myalgias Skin/Breast Denies rash Neuro Reports no additional complaints Endo Reports palpitations Jorge/Lymph Denies easy bleeding, Denies easy bruising and Denies lymphadenopathy Aller/Immun Denies wheezing Physical Exam Vital Signs: Last Vital Signs Pulse 74 06/24/24 09:03 BP 118/70 06/24/24 09:03 Pulse Ox 98 06/24/24 09:03 Oxygen Delivery Method Room Air 06/24/24 09:03 BMI result Body Mass Index 34.0 Const General: comfortable HEENT Head: Yes normocephalic Neck Neck: Yes supple Chest Chest palpation & inspection: normal inspection of the chest Resp Effort & Inspection: normal respiratory effort Auscultation: no rales and diminished lung sounds Cardio Rate: tachycardic Rhythm: regular rhythm Heart sounds: S1 normal heart sound present and S2 normal heart sound present GI Palpation (GI): Soft to palpation Skin General skin exam: no rashes or lesions noted Extrem General: Yes no clubbing, cyanosis or edema Assessment & Plan Assessment & Plan (1) Asthma: Code(s): J45.909 - Unspecified asthma, uncomplicated Category: Medical Qualifiers: Asthma complication type: uncomplicated Asthma persistence: persistent Asthma severity: moderate Qualified Code(s): J45.40 - Moderate persistent asthma, uncomplicated (2) Allergies: Code(s): T78.40XA - Allergy, unspecified, initial encounter Category: Medical Qualifiers: Encounter type: subsequent encounter Qualified Code(s): T78.40XD - Allergy, unspecified, subsequent encounter (3) ILD (interstitial lung disease): Comment: ?NSIP Code(s): J84.9 - Interstitial pulmonary disease, unspecified Category: Medical (4) Bronchomalacia: Comment: based on bronchoscopy Code(s): J98.09 - Other diseases of bronchus, not elsewhere classified Category: Medical (5) Antisynthetase syndrome: Code(s): D89.89 - Other specified disorders involving the immune mechanism, not elsewhere classified Category: Medical (6) Dyspnea: Code(s): R06.00 - Dyspnea, unspecified Category: Medical Qualifiers: Dyspnea type: dyspnea on exertion Qualified Code(s): R06.09 - Other forms of dyspnea (7) Pulmonary fibrosis: Code(s): J84.10 - Pulmonary fibrosis, unspecified Category: Medical Plan continue Mycophenalate as per [facility] Will continue to F/U with [facility] Lung center and Rheumatology Rheumatology referral to have a local dean of students to work in conjunction with [place] off symbicort RICA as needed Reflux diet stress ECHO to assess for pulmonary HTN Consider OFEV if any progressive pulmonary fibrosis would benefit from pulmonary rehab F/U 4-6 months Orders: Orders CA echo stress exercise Today I27.20 - Pulmonary hypertension, unspecified, R06.09 - Other forms of dyspnea Pulmonary Rehab Today D89.89 - Other specified disorders involving the immune mechanism, not elsewhere classified, J45.40 - Moderate persistent asthma, uncomplicated, J84.10 - Pulmonary fibrosis, unspecified, J84.9 - Interstitial pulmonary disease, unspecified Referrals Rheumatology Referral D89.89 - Other specified disorders involving the immune mechanism, not elsewhere classified Coding Level of Care Code Est Pt Level 4 (32352) Complex EM visit Add On G2211 Diagnoses Moderate persistent asthma without complication J45.40 Asthma complication type: uncomplicated Asthma persistence: persistent Asthma severity: moderate Allergy, subsequent encounter T78.40XD Encounter type: subsequent encounter ILD (interstitial lung disease) J84.9 Bronchomalacia J98.09 Antisynthetase syndrome D89.89 Dyspnea on exertion R06.09 Dyspnea type: dyspnea on exertion Pulmonary fibrosis J84.10 Time Spent (min) 18
[2024-06-24 09:03] VITALS: BP 118/70; PULSE 74; O2SAT 98; BMI 34.0
== END 2024-06-24 09:35 | disposition home or self-care (01) ==
PROVIDERS: PCP Internal Medicine; Visit Provider Hospitalist
DX: J45.40 Moderate persistent asthma, uncomplicated (principal); T78.40XD Allergy, unspecified, subsequent encounter; J84.9 Interstitial pulmonary disease, unspecified; J98.09 Other diseases of bronchus, not elsewhere classified; D89.89 Other specified disorders involving the immune mechanism, not elsewhere classified; R06.09 Other forms of dyspnea; J84.10 Pulmonary fibrosis, unspecified
CPT/HCPCS: 99214

== ENCOUNTER → 2024-06-24 08:59 | Outpatient (BNVA) | payer BC, SELFPAY | PROVIDERS: PCP Internal Medicine; Visit Provider Hospitalist | DX: J18.9 Pneumonia, unspecified organism (principal) ==

== ENCOUNTER → 2024-07-17 10:55 | Outpatient (REF) | payer BC, SELFPAY ==
--- NOTE | 2024-07-17 11:02 | CA_ITS ---
Acquisition Time: 2024-07-17 10:56:11 Total Exercise Time: 00:08:11 Test Indications: Dyspnea PULMONARY HTN Medications: SEE EMAR Protocol: NEVIN Max HR: 164 BPM 103% of Pred: 158 BPM Max BP: 186/087 mmHG Max Work Load: 10.4 METS Exercise stress test exercise 8 min 11 sec of Nevin protocol achieving 102% MPHR, with mild to moderate SOB, no chest discomfort, with isolated PACs & PVCs,, venticular cuplet, with normotensive response to exercise, without EKG changes. Echo images obtained by tech at rest and immediately post peak exercise, Definity contrast used Test reviewed with Dr. Hewitt. Referred By: Tahir Mendez Overread By: Destiny Dubose
== END ==
LOC: HO.CARD 10:55
PROVIDERS: PCP Internal Medicine; Visit Provider Hospitalist
DX: R06.09 Other forms of dyspnea (principal); I27.20 Pulmonary hypertension, unspecified
CPT/HCPCS: 93350; Q9957

== ENCOUNTER → 2024-07-17 11:02 | Outpatient (BNV) | payer BC, SELFPAY | PROVIDERS: PCP Internal Medicine; Visit Provider Nurse Practitioner | DX: R06.02 Shortness of breath (principal); I49.1 Atrial premature depolarization; I49.3 Ventricular premature depolarization | CPT/HCPCS: 93016; 93018; 93350; 93352 ==

== ENCOUNTER 2024-08-21 12:29 | Outpatient (AMB) | payer BC, SELFPAY ==
--- NOTE | 2024-08-21 12:35 | MHC.OFFVIS ---
Vital Signs 08/21/24 12:36 Height 5 ft 6 in Weight 209 lb 14.081 oz BMI 33.9 BP 122/64 Blood Pressure Location Lt brachial Position Sitting Pulse 83 Pulse Source Pulse Oximeter Pulse Oximetry (%) 99 Oxygen Delivery Method Room Air Intake Visit Reasons: immune mechanism/LM Intake Note: Patient presents today as a new patient internally referred by Tahir Mendez for Antisynthetase Syndrome. Allergies codeine Allergy (Severe, Verified 08/21/24 12:37) Vomiting Medication List - Last Reconciled 08/21/24 by Isabel Garvey MD albuterol sulfate 90 mcg/actuation 2 puffs inhalation Q4-6H PRN bempedoic acid (Nexletol) 180 mg PO DAILY mycophenolate mofetil 1,500 mg PO HPI Comments Details: Patient is a 64 year old female presents for evaluation of ILD and positive Sarah 1 antibody. Patient is an avid golfer (starting at age 52) who was in her usual state of health until 08/02/2022 when she started developing symptoms of dyspnea on exertion, noting distances she would normally walk without concern would now be met with shortness of breath at half that distance. She followed up with her primary, got a chest x-ray and was diagnosed with pneumonia. Completed antibiotics but symptoms persisted and repeat chest x-ray did not show any improvement in the findings. She subsequently had a CT chest done which was concerning for interstitial lung disease. She was referred to pulmonology and had serial CT scans of her chest which showed stable disease. She also had PFTs done which showed normal FVC and DLCO, minimal restriction. She was on high-dose prednisone for some time but did not like it because of weight gain and other side effects related to prednisolone use. She was referred to [facility] for further evaluate and additional testing revealed anti Sarah positivity. She was subsequently diagnosed with anti synthetase syndrome and started on MMF. With respect to her anti synthetase syndrome she denies history of Raynaud's. She does note new proximal muscle weakness involving the shoulders having difficulty combing her hair and raising her hands above her head. She also notes right thigh pain and stiffness going all the way down to her legs. Her left thigh is not affected. She denies prolonged morning stiffness or inflammatory type joint pain. No fevers. 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 Asthma Allergies Acute respiratory failure Tachycardia ILD (interstitial lung disease) Pneumonia Surgical History History of abdominoplasty (~2020) History of foot surgery History of bilateral breast reduction surgery (~2020) History of esophagogastroduodenoscopy (EGD) History of colonoscopy History of cholecystectomy (~2015) History of bronchoscopy Review of Systems Const Details: Review of Systems Constitutional: Denies fever, chills, weight loss ENT: Denies vision changes, eye pain or eye redness, dental caries, dry mouth GI: Denies nausea, vomiting, diarrhea, abdominal pain, change in BM Pulm: Denies SOB, NASCIMENTO, hemoptysis, wheezing Cards: Denies chest pain, palpitations Skin: Denies Raynaud's, rash, nail changes, photosensitivity, 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 Well appearing and in no apparent painful distress HEENT Conjunctiva and sclera clear. ?Pupils equal round and reactive to light. ?No lymphadenopathy. ?Normal dentition. No oral or nasal ulcers noted. No evidence of discoid rash to the sudha of ears CHEST/RESPIRATORY SYSTEM Normal respiratory effort and able to speak in complete sentences. ?Clear to auscultation bilaterally. ?No crackles, rales, rhonchi, wheezes heard. CARDIAC SYSTEM Regular rate and rhythm. ?S1 and S2 heard no murmurs. ?Radial pulses intact bilaterally MSK Hands: ?Good r d internship strength bilaterally - 5/5. ?No deformities noted. ?No synovitis noted to the MCPs, PIPs or DIPs. ?No tenderness to palpation of these joints. Wrists: ?Full range of motion at the wrists without pain. ?No tenderness to palpation or synovitis noted to the wrists. Elbows: Full range of motion without pain. No tenderness, weakness, swelling, increased warmth or erythema. Shoulders: Full range of motion without pain. No tenderness, weakness, swelling, increased warmth or erythema. Hips: Full range of motion without pain. Hip bursa: No tenderness to palpation Knees: ?Full range of motion. ?No tenderness, swelling, increased warmth or erythema.?No effusion or crepitations Ankles: Full range of motion. ?No tenderness, swelling, increased warmth or erythema.? Feet: ?Negative squeeze test. ?No tenderness to palpation or swelling of the MTPs. Tender points:??No tenderness to palpation of the neck, shoulders, chest, elbows, hips, buttocks or knees. Muscle Strength Right Left Neck 5 5 Shoulder abduction 4 4 Shoulder adduction 5 5 Elbow flexion 5 5 Elbow extension 5 5 Wrist flexion 5 5 Wrist extension 5 5 Hotel Lobby Concierge strength 5 5 Hip flexion 5 5 Knee extension 5 5 Knee flexion 5 5 Foot dorsiflexion 5 5 Foot plantarflexion 5 5 SKIN Skin intact without rashes. 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 We will check MRSA extended panel for myositis specific and myositis associated antibodies for a full panel. Agree with mycophenolate however this may not be enough for what could be initially presenting myopathy involving her proximal muscles specifically her shoulders. We will also check CK and aldolase. 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 We will discuss treatment with patient based on results. Plan I spent 60 minutes reviewing the record and labs, seeing the patient, discussing the treatment plan and documenting in the medical record ? Orders: Orders Anti Extractable Nuclear Ag Today D89.89 - Other specified disorders involving the immune mechanism, not elsewhere classified CK, Total+Isoenzymes, Serum Today D89.89 - Other specified disorders involving the immune mechanism, not elsewhere classified MSA Panel Extended Today D89.89 - Other specified disorders involving the immune mechanism, not elsewhere classified ZACHERY Reflex Titer and Pattern Today D8 - Other specified disorders involving the immune mechanism, not elsewhere classified Aldolase Today D8 - Other specified disorders involving the immune mechanism, not elsewhere classified Comprehensive Met. Panel Today D8 - Other specified disorders involving the immune mechanism, not elsewhere classified C Reactive Protein Today D8 - Other specified disorders involving the immune mechanism, not elsewhere classified Complete Blood Count Auto Diff Today D8 - Other specified disorders involving the immune mechanism, not elsewhere classified Erythrocyte Sedimentation Rate Today D8 - Other specified disorders involving the immune mechanism, not elsewhere classified Medications: Changed From mycophenolate mofetil 1,500 mg PO To mycophenolate mofetil 1,500 mg PO BID Coding Level of Care Code New Pt Level 5 (44868) Complex EM visit Add On G2211 Diagnoses Antisynthetase syndrome
[2024-08-21 12:36] VITALS: BP 122/64; PULSE 83; O2SAT 99; BMI 33.9
== END 2024-08-21 13:30 | disposition home or self-care (01) ==
PROVIDERS: PCP Internal Medicine; Visit Provider Student in an Organized Health Care Education/Training Program
DX: D89.89 Other specified disorders involving the immune mechanism, not elsewhere classified (principal)
CPT/HCPCS: 99205

== ENCOUNTER 2024-08-21 12:29 | Outpatient (REF) | payer BC, SELFPAY ==
[2024-08-21 13:55] LABS: MANUAL DIFF FLAG NO
[2024-08-21 14:27] LABS: Basophils Percent Auto 0.4 % (0-2); Eosinophils Percent Auto 0.8 % (0-4); Hematocrit 36.2 % (37.0-47.0); Hemoglobin 12.1 g/dl (12.0-16.0); Imm Gran Abs Auto 0.02 X10*3/uL (0.00-0.03); Imm Gran Pct Auto 0.4 % (0.0-0.4); Lymphocytes Absolute Auto 1.4 X10*3/uL (1.2-4.9); Lymphocytes Percent Auto 26.3 % (20-40); Mean Corpuscular HGB Conc 33.4 g/dl (31.0-35.0); Mean Corpuscular Hemoglobin 30.1 pg (27.0-33.0); Mean Platelet Volume 9.9 fL (9.4-12.3); Monocytes Absolute Auto 0.3 X10*3/uL (0.1-1.2); Monocytes Percent Auto 5.9 % (2-11); Neutrophils Absolute Auto 3.5 x10*3/uL (2.0-8.3); Neutrophils Percent Auto 66.2 % (45-73); Platelet Count 327 X10*3/uL (160-400); Red Blood Count 4.02 X10*6/uL (4.20-5.50); Red Cell Distribution Width 12.5 % (11.0-16.0); White Blood Count 5.3 X10*3/uL (4.8-10.8)
[2024-08-21 15:04] LABS: Erythrocyte Sedimentation Rate 30 MM/HR (0-20)
[2024-08-21 15:41] LABS: Alanine Aminotransferase 17 U/L (0-31); Albumin Level 4.7 g/dL (3.5-5.0); Alkaline Phosphatase 49 U/L (39-117); Anion Gap 14 (12-20); Aspartate Amino Transferase 23 U/L (5-31); Bilirubin Total 0.8 mg/dL (0.0-1.0); Blood Urea Nitrogen 15 mg/dL (9-16); C Reactive Protein < 0.04 mg/dL (< or = 0.50); Calcium 10.3 mg/dL (8.4-10.2); Carbon Dioxide 26 mmol/L (22-29); Chloride 104 mmol/L (96-108); Estimated Glomerular Filt Rate > 60; Glucose Random 93 mg/dL (60-115); Sodium 140 mmol/L (135-145); Total Protein 7.9 g/dL (6.5-8.0)
[2024-08-24 20:29] LABS: SM/Ribonucleoprotein Ab <1.0 NEG AI (<1.0 NEG); Smith Protein <1.0 NEG AI (<1.0 NEG)
[2024-08-27 11:09] LABS: Anti Nuclear Antibody Screen POSITIVE (NEGATIVE)
[2024-08-27 21:58] LABS: Aldolase 3.1 U/L (<=8.1); CK-BB None Detected (None Detected); CK-MB 0 % (<5); CK-MM 100 % (95-100); Creatine Kinase,Total,Serum 30 U/L (29-143)
[2024-09-02 16:38] LABS: Cytosolic 5'nuc 1A Ab IgG <5 Units; Ej Ab <11 SI (<11); HMGCR Ab IgG <2 CU (<20); Jo-1 Ab 42 SI (<11); MDA5 Ab <11 SI (<11); Mi-2 alpha Ab <11 SI (<11); Mi-2 beta Ab <11 SI (<11); NXP-2 (MJ) Ab <11 SI (<11); Oj Ab <11 SI (<11); Pl-12 Ab <11 SI (<11); Pl-7 Ab <11 SI (<11); SRP Ab <11 SI (<11); TIF1 gamma Ab <11 SI (<11)
== END 2024-08-21 12:30 | disposition home or self-care (01) ==
LOC: HO.LAB 12:29
PROVIDERS: PCP Internal Medicine; Visit Provider Student in an Organized Health Care Education/Training Program
DX: D89.89 Other specified disorders involving the immune mechanism, not elsewhere classified (principal)
CPT/HCPCS: 36415; 80053; 82085; 82552; 83516; 83520; 84182; 85025; 85652; 86038; 86039; 86140; 86235

== ENCOUNTER 2024-09-22 09:31 | Outpatient (AMB) | payer BC, SELFPAY ==
[2024-09-22 09:32] VITALS: BP 120/72; PULSE 85; BMI 34.5
--- NOTE | 2024-09-22 09:32 | A.OFFVIS_ITS ---
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 At that time she was establishing care for the new diagnosis of antisynthetase syndrome. Today patient complains of right hip pain that is sometimes occurs in her groin and sometimes occurs in her buttock as well as to her lateral hip preventing her from lying on her hip at nights. Only involving the right hip and not involving the left. No history of trauma. States that the pain is limiting her from exercise and movement and this frustrates her she feels like she is not able to do the things that she used to do. 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 No muscle involvement, Raynaud's, non erosive inflammatory arthritis, automobile mechanic motor's hands, or fevers Currently on full-dose mycophenolate Initial History Patient is an avid golfer (starting at age 52) who was in her usual state of health until 08/02/2022 when she started developing symptoms of dyspnea on exertion, noting distances she would normally walk without concern would now be met with shortness of breath at half that distance. She followed up with her primary, got a chest x-ray and was diagnosed with pneumonia. Completed antibiotics but symptoms persisted and repeat chest x-ray did not show any improvement in the findings. She subsequently had a CT chest done which was concerning for interstitial lung disease. She was referred to pulmonology and had serial CT scans of her chest which showed stable disease. She also had PFTs done which showed normal FVC and DLCO, minimal restriction. She was on high- dose prednisone for some time but did not like it because of weight gain and other side effects related to prednisolone use. She was referred to [facility] [place] for further evaluate and additional testing revealed anti Sarah positivity. She was subsequently diagnosed with anti synthetase syndrome and started on MMF. With respect to her anti synthetase syndrome she denies history of Raynaud's. She does note new proximal muscle weakness involving the shoulders having dif ficulty combing her hair and raising her hands above her head. She also notes right thigh pain and stiffness going all the way down to her legs. Her left thigh is not affected. She denies prolonged morning stiffness or inflammatory type joint pain. No fevers. No dysphagia Current Rheumatology Medication(s): Mycophenolate 1500 mg b.i.d. 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 Asthma Allergies Acute respiratory failure Tachycardia ILD (interstitial lung disease) Pneumonia Surgical History History of abdominoplasty (~2020) History of foot surgery History of bilateral breast reduction surgery (~2020) History of esophagogastroduodenoscopy (EGD) History of colonoscopy History of cholecystectomy (~2015) History of bronchoscopy Review of Systems Const Details: Review of Systems Constitutional: Denies fever, chills, weight loss ENT: Denies vision changes, eye pain or eye redness, dental caries, dry mouth GI: Denies nausea, vomiting, diarrhea, abdominal pain, change in BM Pulm: Denies SOB, NASCIMENTO, hemoptysis, wheezing Cards: Denies chest pain, palpitations Skin: Denies Raynaud's, rash, nail changes, photosensitivity, 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 Well appearing and in no apparent painful distress HEENT Conjunctiva and sclera clear. ?Pupils equal round and reactive to light. ?No lymphadenopathy. ?Normal dentition. No oral or nasal ulcers noted. No evidence of discoid rash to the sudha of ears CHEST/RESPIRATORY SYSTEM Normal respiratory effort and able to speak in complete sentences. ?Clear to auscultation bilaterally. ?No crackles, rales, rhonchi, wheezes heard. CARDIAC SYSTEM Regular rate and rhythm. ?S1 and S2 heard no murmurs. ?Radial pulses intact bilaterally MSK Hands: ?Good hypo dipper strength bilaterally - 5/5. ?No deformities noted. ?No synovitis noted to the MCPs, PIPs or DIPs. ?No tenderness to palpation of these joints. Wrists: ?Full range of motion at the wrists without pain. ?No tenderness to palpation or synovitis noted to the wrists. Elbows: Full range of motion without pain. No tenderness, weakness, swelling, increased warmth or erythema. Shoulders: Full range of motion without pain. No tenderness, weakness, swelling, increased warmth or erythema. Hips: Full range of motion without pain Hip bursa: Bilateral tenderness to palpation Knees: ?Full range of motion. ?No tenderness, swelling, increased warmth or erythema.?No effusion or crepitations Ankles: Full range of motion. ?No tenderness, swelling, increased warmth or erythema.? Feet: ?Negative squeeze test. ?No tenderness to palpation or swelling of the MTPs. Tender points:??No tenderness to palpation of the neck, shoulders, chest, elbows, hips, buttocks or knees. Muscle Strength Right Left Neck 5 5 Shoulder abduction 5 5 Shoulder adduction 5 5 Elbow flexion 5 5 Elbow extension 5 5 Wrist flexion 5 5 Wrist extension 5 5 Globe Tester strength 5 5 Hip flexion 5 5 Knee extension 5 5 Knee flexion 5 5 Foot dorsiflexion 5 5 Foot plantarflexion 5 5 SKIN Skin intact without rashes. Normal nail fold capillary dermoscopy Office Procedures AMB Joint Injection/Aspiration Joint Injection/Aspiration Details: Procedure was explained to the patient and consent was obtained. ? The area of interest was identified and confirmed with patient. ?This was subsequently cleaned with chlorhexidine x3. ? The area was then anesthetized using ethyl chloride spray. 40 mg Kenalog with 1 cc 1% lidocaine was injected without issue. ?Minimal to no bleeding. ?Patient tolerated procedure. Primary Site: other (Right greater trochanter) Prep: site was prepped using aseptic technique and ethochloride spray was applied Injected: 40 mg of, DepoMedrol, with 1 mL of and 1% plain lidocaine Approach Used: other (Lateral) Procedure: The patient tolerated the procedure well Coding 73988 - Glenohumeral/Tronchanteric Bursa/Intraarticular Procedure code (CPT) selection complete Office Meds Kenalog 40 mg/mL suspension for injection Performing Provider: Isabel Garvey MD Performing Location: [facility] [place] Rheumatology Administered by: Isabel Garvey MD on 09/22/24 10:55 Dose Route Admin Location Dispensed Lot Number Expiration Date [facility] [employer] Plater 40 mg intra-articular Right greater trochanter 1 mL [id number] 04/13/26 [address]-6 [employer] lidocaine (PF) 10 mg/mL (1 %) injection solution Performing Provider: Isabel Garvey MD Performing Location: [facility] [place] Rheumatology Administered by: Isabel Garvey MD on 09/22/24 10:55 Dose Route Admin Location Dispensed Lot Number Expiration Date [facility] Drum Plater 10 mg Infiltration Right greater trochanter 2 mL [id number] 01/12/27 24553-807-10 [facility] Results Reviewed Results Reviewed: XR Hip Right 06/05/2024 1. Moderate right hip OA - Preserved joint space with subchondral sclerosis, subchondral cystic change, and marginal osteophytes. Acetabular hypertrophy. 2. No displaced fracture Assessment & Plan Assessment & Plan (1) Antisynthetase syndrome: Code(s): D89.89 - Other specified disorders involving the immune mechanism, not elsewhere classified Category: Medical Plan: #Antisynthetase syndrome Patient was ILD in the setting of antisynthetase syndrome with positive Sarah 1 antibodies CK and aldolase normal. ESR (age and sex adjusted) and CRP also normal No evidence of myopathy from her antisynthetase syndrome at this time Continue mycophenolate Plan - Continue MMF 1500mg bid - Continue pulm f/u - RTC 4 months (2) Osteoarthritis of right hip: Code(s): M16.11 - Unilateral primary osteoarthritis, right hip Category: Medical Qualifiers: Osteoarthritis type: primary Qualified Code(s): M16.11 - Unilateral primary osteoarthritis, right hip Plan: #Right hip OA Hip XR showing moderate hip OA Agree with ortho follow up for right hip injection Plan - F/u ortho (3) Greater trochanteric bursitis of right hip: Code(s): M70.61 - Trochanteric bursitis, right hip Category: Medical Plan: #Right greater trochanteric bursitis Patient with clinical greater trochanteric bursitis Plan - steroid injection today - exercises/stretches given Plan I spent 30 minutes reviewing the record and labs, seeing the patient, discussing the treatment plan and documenting in the medical record ? Orders: Orders AMB Joint Injection/Aspiration Today D89.89 - Other specified disorders involving the immune mechanism, not elsewhere classified Medications: New Kenalog (triamcinolone acetonide) 40 mg intra-articular ONCE 1 mL 0RF NS D89.89 - Other specified disorders involving the immune mechanism, not elsewhere classified lidocaine (PF) 10 mg Infiltration ONCE 2 mL 0RF D89.89 - Other specified disorders involving the immune mechanism, not elsewhere classified Coding Level of Care Code Est Pt Level 4 (27173) Complex EM visit Add On G2211 Diagnoses Antisynthetase syndrome D89.89 Primary osteoarthritis of right hip M16.11 Osteoarthritis type: primary Greater trochanteric bursitis of right hip M70.61 CPT Codes Coding - Joint 7: 58458 - Glenohumeral/Tronchanteric Bursa/Intraarticular ([id number])
== END 2024-09-22 10:28 | disposition home or self-care (01) ==
PROVIDERS: PCP Internal Medicine; Visit Provider Student in an Organized Health Care Education/Training Program
DX: D89.89 Other specified disorders involving the immune mechanism, not elsewhere classified (principal); M16.11 Unilateral primary osteoarthritis, right hip; M70.61 Trochanteric bursitis, right hip
CPT/HCPCS: 20610; 99214

== ENCOUNTER → 2024-09-22 09:31 | Outpatient (BNVA) | payer BC, SELFPAY | PROVIDERS: PCP Internal Medicine; Visit Provider Student in an Organized Health Care Education/Training Program | DX: D89.89 Other specified disorders involving the immune mechanism, not elsewhere classified (principal); M16.11 Unilateral primary osteoarthritis, right hip | CPT/HCPCS: 20610; J2003; J3300 ==

== ENCOUNTER 2024-10-26 09:39 | Outpatient (AMB) | payer BC, SELFPAY ==
--- NOTE | 2024-10-26 09:40 | MHC.OFFVIS ---
Vital Signs 10/26/24 09:41 Height 5 ft 6 in Weight 209 lb 7.026 oz BMI 33.8 BP 120/80 Blood Pressure Location Rt brachial Position Sitting Pulse 82 Pulse Source Pulse Oximeter Pulse Oximetry (%) 100 Oxygen Delivery Method Room Air Intake Visit Reasons: BOOP Allergies codeine Allergy (Severe, Verified 10/26/24 09:43) Vomiting HPI Comments Details: The patient is a 64 year woman with a known history of mild intermittent asthma who apparently was in usual state health until about mid July of 2022 when she started developing symptoms so dyspnea on exertion. She is an avid golfer. She noticed that usually she was able to play the whole gain without any significant respiratory complaints. But then she started developing some increasing shortness of breath specially when going up a small hill. She start using her inhaler more often. Subsequently symptoms got much worse sometime in August where she developed some laryngitis sore throat in addition to the worsening respiratory symptoms. She had gone to an urgent care where she had an x-ray demonstrating bibasilar opacities suggesting bilateral pneumonia. She was given antibiotics and a follow-up with primary care doctor. The patient had a repeat chest x-ray in September and the findings are still there. Her other symptoms such it up but she was still complaining of dyspnea on exertion. She was referred to Pulmonary. Ultimately underwent a CT scan of the chest. The CT scan of the chest was noncontrast. Again demonstrating now the airspace disease primarily at the bases bilaterally. Dense ground-glass areas with consolidation. Also had a cyst in the left upper lung area. The suspicion was that the patient had organizing pneumonia. She was given additional antibiotics in case was infectious and also given prednisone in case it was cryptogenic organizing pneumonia. However, the patient did not take the prednisone from the get go. She was concerned about taking so much steroids. Therefore she completed the antibiotics. She did start the prednisone few days prior to her next CT scan in December of 2022. However, the patient was still symptomatic with shortness of breath and her CT scan of the chest did not demonstrate any significant changes. Therefore she started taking the prednisone more regularly initially prednisone 40 mg daily which she took for about 8 weeks from mid December to Mid February. Then her prednisone was decreased to 20 mg daily until her CT scan that occurred in March 26. The CT scan demonstrated very similar findings with a dense areas of ground-glass in the bases not was increasing reticular changes likely from scarring. During the visit we did go for brief walking oximetry the patient did have increase heart rate up to 115 with minimal activity and the pulse ox did decrease down to about 92% with activity. The patient did not qualify for oxygen. The patient does state that when she is going up hills she has an oximeter and does go to the high 80s when she is really exerting herself. She is no longer on prednisone. The patient does have a rescue inhaler that she uses as needed. As far as medications no real new medications except for the prednisone and her cholesterol medication. We also talked about potential exposures she does not smoke cigarettes and she does not do any vaping or any other inhalational or recreational drugs. She does have a hiatal hernia and she was evaluated by GI with an endoscopy and a colonoscopy. She does have a hot tub but is outside. No other fumes or toxins that she can think of. 05/13/2023 the patient is here for a pulmonary follow-up visit. Overall she is feeling a little better. She still playing golf. Before she would get short of breath and tachypneic after 12 holes of golf. Now she is able to get to 18 which is very happy about. She did start the Symbicort inhaler after the bronchoscopy. Seems like it is helping. She does have some hoarseness therefore will provide with air the AeroChamber. She had hoarseness even before the inhaler was started though. During the bronchoscopy she did have some evidence of inflammation of the larynx likely from coughing a copy also from reflux disease. Also interestingly the airways demonstrate significant bronchomalacia that was not expected with some evidence of bronchitis. In addition to that we did do a BAL from the right middle lobe and did demonstrate some slight pinkish return suggesting some degree of diffuse alveolar hemorrhage. We did request BAL sent for hemosiderin-laden macrophages in there there were indeed present. The findings of hemosiderin-laden macrophages suggest the possibility of a mild vasculitis versus can also be related to lung injury or her interstitial lung conditions that may also resulted in mild hemosiderosis. Therefore, will have her undergo celiac testing which sometimes can result in hemosiderosis as well as other laboratories. Patient also had significant bronchomalacia during the bronchoscopy which was not expected. Again we talked about different differential diagnoses that can result in the bronchomalacia itself. Will go ahead and request the barium swallow to rule out the possibility of underlying reflux disease. Patient is also scheduled to have a repeat CT scan. Clinically the patient is feeling a little better although if the CT scan still demonstrates abnormal findings on the CT scan will consider a surgical biopsy. She did have transbronchial biopsies although is very technically difficult and although we had normal benign bronchial tissue no mention about bronchioalveolar tissue making the biopsies less diagnostic still the normal findings is reassuring. 07/08/2023 the patient is here for a pulmonary follow-up visit. The patient did follow-up with thoracic surgery but opted on not having a biopsy as of yet. Therefore, we made a referral to [facility] for her to get a 2nd opinion there. As far as her breathing is about the same. Still complaining of dyspnea on exertion. [id number] severity. She has not noticed any significant improvement or worsening sense back in December 2022. Prior to that she had gone to [place] and did she did undergo a holistic type of therapy that provide her some relief at least from the pleuritic chest pain. We again reviewed her biopsy results which although were reassuring were nondiagnostic. She did talk about considering a cryo biopsy instead of a wedge biopsy. I explained to her that her interstitial lung disease pretty peripheral and also on the basis. Also during the bronchoscopy that I performed she had a lot of dynamic movement of her diaphragm making it difficult to safely biopsy the peripheral parenchyma. I do believe that if she wants a definitive answer it would be best provided with a wedge biopsy. Also she has been seen sick for about a year ready and therefore I would think that a more definitive intervention would be indicated. Her last CT scan of the chest was done back in May 2023. Again demonstrating the bibasilar airspace disease with some errands of ground-glass but no honeycombing noted. The differential includes IPF, chronic hypersensitivity pneumonitis and also fibrotic NSIP. But not believe that this is cryptogenic organizing pneumonia based on the fact that he just has not responded to corticosteroid therapy. The patient also has significant allergies with an elevated IgE. We did discuss staring Xolair in the future once her ILD workup was established. 11/06/2023 the patient is here for a pulmonary follow-up visit. Overall she is doing fairly well from a respiratory status. Denies any significant shortness of breath at rest. She does have some dyspnea with activity. Mild in severity. She has been exercising regular basis. The patient did follow-up in [place]. She has been very happy with her experience. 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 She has been having some hip discomfort she is wondering if that musculoskeletal symptoms could be related to the underlying connective tissue disease. The recommendation was for her to get vaccinated for both shingles and RSV as well as flu and dentist start mycophenolate. The patient did have PFTs and also a CT scan in [place]. She is going to follow closely there as well. From an asthma standpoint the patient seems to be doing okay her IgE levels were elevated but seems like her asthma symptoms are better. During the visit we did go for brief walking oximetry should maintain a pulse ox 96%. This is reassuring. We also talked about the importance of pulmonary rehabilitation. We also talked about antifibrotic agents in case the fibrosis gets worse but at this point is been reassuring that he has not significantly changed based on the CT scans that we have. 06/24/2024 the patient is here for a pulmonary follow-up visit. Overall she is doing okay. She is on the full dose of mycophenolate 1500 mg twice a day. She is tolerating it well without any adverse effects. She is being monitored closely every 3-4 months at [facility]. The patient has not had to use her rescue inhaler as often and she stopped using the Symbicort which is reassuring. She is back to exercising and playing golf. Although she still has a hard time going up a flight of stairs. We did go for brief walking oximetry in the office and going up a flight of stairs her oxygen oxygen was great at 97%. But heart rate increased quickly to 140 beats per minute and she was visibly dyspneic hard to speak in full sentence. 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 The patient has not been a candidate for office since then has not been any worsening of disease and also has not required any additional immunosuppression at this time. She does have Rheumatology in [place] as well, although, I do believe that a local television director would also be helpful in order to follow her. The patient also has had pulmonary function studies. I do believe that she would be a great candidate for pulmonary rehabilitation. Will go ahead and request a stress echo to assess for exercise-induced pulmonary hypertension and will see about getting her in to pulmonary rehabilitation at this time.\ 10/26/2024 the patient is here for a pulmonary follow-up visit. Overall the patient has been doing okay. She has been dealing with some hip and back issues. He is causing significant pain and discomfort. She had been seen a specialist in [place] and also saw the television director locally. [place] likely she has component of osteoarthritis and bursitis. 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 She had been on the 1500 mg b.i.d. of the mycophenolate. She seems to be tolerating it well except for significant constipation. She is going to follow-up in [place] in early spring. She will likely get a CT scan also PFTs. I am hopeful that if she is stable she can decrease her mycophenolate some. She was wondering about Rituxan. Explained to her that if she is finding worsening disease then at that point the [place] team may consider Rituxan. But at this point seems that clinically she is doing well from a respiratory status. She needs to get her flu vaccine. She needs to stop her mycophenolate 1st in order to do that. Also to note she did undergo the echocardiogram demonstrating no evidence of any ischemia and no evidence of any elevations in her end diastolic pressure and for that matter PA pressures. 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 Asthma Allergies Acute respiratory failure Tachycardia ILD (interstitial lung disease) Pneumonia Surgical History History of abdominoplasty (~2020) History of foot surgery History of bilateral breast reduction surgery (~2020) History of esophagogastroduodenoscopy (EGD) History of colonoscopy History of cholecystectomy (~2015) History of bronchoscopy Social History (Updated 10/26/24 @ 09:43 by Inga Ku CMA) Patient Tobacco Use Status: Never used Tobacco Review of Systems Const Denies fever(s) Eyes Reports no additional complaints ENT Denies sore throat Card Denies chest pain, Reports palpitations and Reports dyspnea on exertion Resp Denies change in phlegm color, Denies hemoptysis, Denies excessive phlegm production, Reports dyspnea on exertion and Denies wheezing GI Reports dyspepsia Musc Reports myalgias Skin/Breast Denies rash Neuro Reports no additional complaints Endo Reports palpitations Jorge/Lymph Denies easy bleeding, Denies easy bruising and Denies lymphadenopathy Aller/Immun Denies wheezing Physical Exam Vital Signs: Last Vital Signs Pulse 82 10/26/24 09:41 BP 120/80 10/26/24 09:41 Pulse Ox 100 10/26/24 09:41 Oxygen Delivery Method Room Air 10/26/24 09:41 BMI result Body Mass Index 33.8 Const General: comfortable HEENT Head: Yes normocephalic Neck Neck: Yes supple Chest Chest palpation & inspection: normal inspection of the chest Resp Effort & Inspection: normal respiratory effort Auscultation: no rales and diminished lung sounds Cardio Rate: tachycardic Rhythm: regular rhythm Heart sounds: S1 normal heart sound present and S2 normal heart sound present GI Palpation (GI): Soft to palpation Skin General skin exam: no rashes or lesions noted Extrem General: Yes no clubbing, cyanosis or edema Assessment & Plan Assessment & Plan (1) Asthma: Code(s): J45.909 - Unspecified asthma, uncomplicated Category: Medical Qualifiers: Asthma complication type: uncomplicated Asthma persistence: persistent Asthma severity: moderate Qualified Code(s): J45.40 - Moderate persistent asthma, uncomplicated (2) Allergies: Code(s): T78.40XA - Allergy, unspecified, initial encounter Category: Medical Qualifiers: Encounter type: subsequent encounter Qualified Code(s): T78.40XD - Allergy, unspecified, subsequent encounter (3) ILD (interstitial lung disease): Comment: ?NSIP Code(s): J84.9 - Interstitial pulmonary disease, unspecified Category: Medical (4) Bronchomalacia: Comment: based on bronchoscopy Code(s): J98.09 - Other diseases of bronchus, not elsewhere classified Category: Medical (5) Antisynthetase syndrome: Code(s): D89.89 - Other specified disorders involving the immune mechanism, not elsewhere classified Category: Medical (6) Dyspnea: Code(s): R06.00 - Dyspnea, unspecified Category: Medical Qualifiers: Dyspnea type: dyspnea on exertion Qualified Code(s): R06.09 - Other forms of dyspnea (7) Pulmonary fibrosis: Code(s): J84.10 - Pulmonary fibrosis, unspecified Category: Medical Plan continue Mycophenalate as per [facility] Will continue to F/U with [facility] Lung center and Rheumatology [place] as needed Reflux diet stress ECHO : no pulmonary HTN noted Consider OFEV if any progressive pulmonary fibrosis would benefit from pulmonary rehab F/U 4-6 months Coding Level of Care Code Est Pt Level 4 (26226) Complex EM visit Add On G2211 Diagnoses Moderate persistent asthma without complication J45.40 Asthma complication type: uncomplicated Asthma persistence: persistent Asthma severity: moderate Allergy, subsequent encounter T78.40XD Encounter type: subsequent encounter ILD (interstitial lung disease) J84.9 Bronchomalacia J98.09 Antisynthetase syndrome D89.89 Dyspnea on exertion R06.09 Dyspnea type: dyspnea on exertion Pulmonary fibrosis J84.10 Time Spent (min) 17
[2024-10-26 09:41] VITALS: BP 120/80; PULSE 82; O2SAT 100; BMI 33.8
== END 2024-10-26 10:10 | disposition home or self-care (01) ==
PROVIDERS: PCP Internal Medicine; Visit Provider Hospitalist
DX: J45.40 Moderate persistent asthma, uncomplicated (principal); T78.40XD Allergy, unspecified, subsequent encounter; J84.9 Interstitial pulmonary disease, unspecified; J98.09 Other diseases of bronchus, not elsewhere classified; D89.89 Other specified disorders involving the immune mechanism, not elsewhere classified; R06.09 Other forms of dyspnea; J84.10 Pulmonary fibrosis, unspecified
CPT/HCPCS: 99214

== ENCOUNTER 2024-10-30 10:30 | Outpatient (AMB) | payer BC, SELFPAY ==
[2024-10-30 13:35] VITALS: BP 110/62; PULSE 107; O2SAT 100
--- NOTE | 2024-10-30 13:35 | MHC.OFFVIS ---
Vital Signs 10/30/24 13:35 BP 110/62 Blood Pressure Location Rt brachial Position Sitting Pulse 107 H Pulse Source Pulse Oximeter Pulse Oximetry (%) 100 Oxygen Delivery Method Room Air Intake Visit Reasons: Flu Shot Allergies codeine Allergy (Severe, Verified 10/30/24 13:36) Vomiting Medication List - Last Reconciled 10/30/24 by Miriam White LPN albuterol sulfate 90 mcg/actuation 2 puffs inhalation Q4-6H PRN bempedoic acid (Nexletol) 180 mg PO DAILY mycophenolate mofetil 1,500 mg PO BID PFSH Medical History (Updated 09/22/24 @ 10:59 by Isabel Garvey MD) Greater trochanteric bursitis of right hip Osteoarthritis of right hip Pulmonary fibrosis Dyspnea 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 Asthma Allergies Acute respiratory failure Tachycardia ILD (interstitial lung disease) Pneumonia Surgical History History of abdominoplasty (~2020) History of foot surgery History of bilateral breast reduction surgery (~2020) History of esophagogastroduodenoscopy (EGD) History of colonoscopy History of cholecystectomy (~2015) History of bronchoscopy Social History (Updated 10/26/24 @ 09:43 by Inga Ku CMA) Patient Tobacco Use Status: Never used Tobacco Physical Exam Vital Signs: Last Vital Signs Pulse 107 H 10/30/24 13:35 BP 110/62 10/30/24 13:35 Pulse Ox 100 10/30/24 13:35 Oxygen Delivery Method Room Air 10/30/24 13:35 Office Procedures Flu Questionnaire Does the patient have a severe egg allergy?: No Does the patient have severe life threatening allergies?: No Does the patient have a fever or illness today?: No Has the patient ever had Guillain-[place] Syndrome?: No Has the patient ever had any past reaction to a flu shot?: No Immunizations Fluarix Triv [id number] (PF) 45 mcg (15 mcg x 3)/0.5 mL IM syringe Performing Provider: Tahir Mendez MD Performing [place] [facility] Administered by: Miriam White LPN on 10/30/24 13:36 Dose Route Admin Location Dispensed Lot Number Expiration Date NDC [employer] 0.5 mL IM Right Deltoid 0.5 mL [id number] 04/12/25 09042-860-45 [employer] VIS Given Date VIS Provided VIS Publication Date 10/30/24 Single Vaccine 21 Eligibility Eligibility Date Funding Source Not VFC Eligible 10/30/24 Private Assessment & Plan Assessment & Plan (1) Asthma: Code(s): J45.909 - Unspecified asthma, uncomplicated Category: Medical Qualifiers: Asthma complication type: uncomplicated Asthma persistence: persistent Asthma severity: moderate Qualified Code(s): J45.40 - Moderate persistent asthma, uncomplicated Plan: flu vaccine Orders: Orders Influenza [id number] Immunization 10/30/24 J45.40 - Moderate persistent asthma, uncomplicated Coding Level of Care Code Established Pt Est Pt Level 1 (14750) Patient Type Established Diagnoses Moderate persistent asthma without complication J45.40 Asthma complication type: uncomplicated Asthma persistence: persistent Asthma severity: moderate Comment NURSE VISIT ONLY
== END 2024-10-30 10:51 | disposition home or self-care (01) ==
PROVIDERS: PCP Internal Medicine; Visit Provider Hospitalist
DX: J45.40 Moderate persistent asthma, uncomplicated (principal)

== ENCOUNTER → 2024-10-30 10:30 | Outpatient (BNVA) | payer BC, SELFPAY | PROVIDERS: PCP Internal Medicine; Visit Provider Hospitalist | DX: J45.40 Moderate persistent asthma, uncomplicated (principal); Z23 Encounter for immunization | CPT/HCPCS: 90471; 90656; 99211 ==

== ENCOUNTER 2024-12-29 07:00 | Outpatient (RCR) | payer BC, SELFPAY | END 2025-03-22 07:05 | disposition home or self-care (01) | LOC: HO.PR 07:00 | PROVIDERS: PCP Internal Medicine; Visit Provider Hospitalist | DX: D89.89 Other specified disorders involving the immune mechanism, not elsewhere classified (principal); J84.10 Pulmonary fibrosis, unspecified; J84.9 Interstitial pulmonary disease, unspecified | CPT/HCPCS: 94618; 99212; G0237; G0239 ==

== ENCOUNTER 2025-02-08 11:21 | Outpatient (AMB) | payer BC, SELFPAY ==
--- NOTE | 2025-02-08 11:24 | MHC.OFFVIS ---
Vital Signs 02/08/25 11:29 Height 5 ft 6 in Weight 208 lb 8.917 oz BMI 33.7 BP 132/70 Blood Pressure Location Rt brachial Position Sitting Pulse 75 Pulse Source Pulse Oximeter Pulse Oximetry (%) 99 Oxygen Delivery Method Room Air Intake Visit Reasons: follow up Intake Note: Patient presents for follow up. Allergies codeine Allergy (Severe, Verified 02/08/25 11:28) Vomiting Medication List - Last Reconciled 02/08/25 by Isabel Garvey MD albuterol sulfate 90 mcg/actuation 2 puffs inhalation Q4-6H PRN bempedoic acid (Nexletol) 180 mg PO DAILY mycophenolate mofetil 1,500 mg PO BID prednisone 20 mg PO DAILY HPI Comments Details: Patient is a 64 year old female presents for follow up of antisynthetase syndrome (Stefan 1 antibody positive, ILD) Interval History: Patient last seen 09/22/2024 with me. At that time patient was stable with respect to her ILD. Complaining of hip pain that was limiting her ability to exercise. Received right greater trochanteric bursa steroid injection. This helped her pain and she received a second dose from orthopedics and was doing well and even started golfing again Saw pulm 10/2024 and was stable from a pulmonary standpoint About 1 week ago had sudden onset hearing loss, had audiology which confirmed SNHL and she is currently on prednisone oral as well as receiving ear injections. 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 No muscle involvement, Raynaud's, non erosive inflammatory arthritis, duralumin mechanic's hands, or fevers Currently on full-dose mycophenolate Initial History Patient is an avid golfer (starting at age 52) who was in her usual state of health until 08/02/2022 when she started developing symptoms of dyspnea on exertion, noting distances she would normally walk without concern would now be met with shortness of breath at half that distance. She followed up with her primary, got a chest x-ray and was diagnosed with pneumonia. Completed antibiotics but symptoms persisted and repeat chest x-ray did not show any improvement in the findings. She subsequently had a CT chest done which was concerning for interstitial lung disease. She was referred to pulmonology and had serial CT scans of her chest which showed stable disease. She also had PFTs done which showed normal FVC and DLCO, minimal restriction. She was on high-dose prednisone for some time but did not like it because of weight gain and other side effects related to prednisolone use. She was referred to [facility] for further evaluate and additional testing revealed anti Stefan positivity. She was subsequently diagnosed with anti synthetase syndrome and started on MMF. With respect to her anti synthetase syndrome she denies history of Raynaud's. She does note new proximal muscle weakness involving the shoulders having difficulty combing her hair and raising her hands above her head. She also notes right thigh pain and stiffness going all the way down to her legs. Her left thigh is not affected. She denies prolonged morning stiffness or inflammatory type joint pain. No fevers. No dysphagia Current Rheumatology Medication(s): Mycophenolate 1500 mg b.i.d. 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 Asthma Allergies Acute respiratory failure Tachycardia ILD (interstitial lung disease) Pneumonia Surgical History History of abdominoplasty (~2020) History of foot surgery History of bilateral breast reduction surgery (~2020) History of esophagogastroduodenoscopy (EGD) History of colonoscopy History of cholecystectomy (~2015) History of bronchoscopy Social History Patient Tobacco Use Status: Never used Tobacco Review of Systems Const Details: Review of Systems Constitutional: Denies fever, chills, weight loss ENT: Denies vision changes, eye pain or eye redness, dental caries, dry mouth GI: Denies nausea, vomiting, diarrhea, abdominal pain, change in BM Pulm: Denies SOB, NASCIMENTO, hemoptysis, wheezing Cards: Denies chest pain, palpitations Skin: Denies Raynaud's, rash, nail changes, photosensitivity, 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 Well appearing and in no apparent painful distress HEENT Conjunctiva and sclera clear. ?Pupils equal round and reactive to light. ?No lymphadenopathy. ?Normal dentition. No oral or nasal ulcers noted. No evidence of discoid rash to the sudha of ears CHEST/RESPIRATORY SYSTEM Normal respiratory effort and able to speak in complete sentences. ?Clear to auscultation bilaterally. ?No crackles, rales, rhonchi, wheezes heard. CARDIAC SYSTEM Regular rate and rhythm. ?S1 and S2 heard no murmurs. 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 ?No deformities noted. ?No synovitis noted to the MCPs, PIPs or DIPs. ?No tenderness to palpation of these joints. Wrists: ?Full range of motion at the wrists without pain. ?No tenderness to palpation or synovitis noted to the wrists. Elbows: Full range of motion without pain. No tenderness, weakness, swelling, increased warmth or erythema. Shoulders: Full range of motion without pain. No tenderness, weakness, swelling, increased warmth or erythema. Hips: Full range of motion without pain Hip bursa: No TTP Knees: ?Full range of motion. ?No tenderness, swelling, increased warmth or erythema.?No effusion or crepitations Ankles: Full range of motion. ?No tenderness, swelling, increased warmth or erythema.? Feet: ?Negative squeeze test. ?No tenderness to palpation or swelling of the MTPs. Tender points:??No tenderness to palpation of the neck, shoulders, chest, elbows, hips, buttocks or knees. Muscle Strength Right Left Neck 5 5 Shoulder abduction 5 5 Shoulder adduction 5 5 Elbow flexion 5 5 Elbow extension 5 5 Wrist flexion 5 5 Wrist extension 5 5 Healthcare Market Consultant strength 5 5 Hip flexion 5 5 Knee extension 5 5 Knee flexion 5 5 Foot dorsiflexion 5 5 Foot plantarflexion 5 5 SKIN Skin intact without rashes. Normal nail fold capillary dermoscopy Results Reviewed Results Reviewed: Laboratory Tests 08/21/24 08/21/24 13:40 13:51 WBC 5.3 RBC 4.02 L Hgb 12.1 Hct 36.2 L Plt Count 327 ESR 30 H Sodium 140 Potassium 4.0 Chloride 104 Carbon Dioxide 26 BUN 15 Creatinine 0.70 Total Bilirubin 0.8 AST 23 ALT 17 Alkaline Phosphatase 49 Total Creatine Kinase 30 C-Reactive Protein < 0.04 Aldolase 3.1 ZACHERY Screen POSITIVE A ZACHERY Titer 1:80 H STEFAN-1 Antibody 42 H EJ Antibody <11 OJ Antibody <11 Mi-2-Alpha Ab <11 Mi-2-Beta Ab <11 NXP-2 Ab <11 PL-7 Antibody <11 PL-12 Antibody <11 SRP Ab <11 MDA5 Ab <11 Myos P155/140 TIF1-g Ab <11 Sm (Ambriz) Antibody <1.0 NEG SM/CHILDREN TEACHER IgG Antibody <1.0 NEG HMGCR IgG Antibody <2 NT5C1A IgG Antibody <5 Laboratory Tests 08/21/24 13:51 STEFAN-1 Antibody 42 H Assessment & Plan Assessment & Plan (1) Antisynthetase syndrome: Code(s): D89.89 - Other specified disorders involving the immune mechanism, not elsewhere classified Category: Medical Plan: #Antisynthetase syndrome Patient was ILD in the setting of antisynthetase syndrome with positive Stefan 1 antibodies CK and aldolase normal. ESR (age and sex adjusted) and CRP also normal No evidence of myopathy from her antisynthetase syndrome at this time Continue mycophenolate Plan - Continue MMF 1500mg bid - Continue pulm f/u - Flexeril 5mg at night for 14 days - RTC 6 months - Labs before visit: CBC, CMP, ESR, CRP, hepatitis panel, T spot, CK, aldolase (2) Greater trochanteric bursitis of right hip: Code(s): M70.61 - Trochanteric bursitis, right hip Category: Medical Plan: #Right greater trochanteric bursitis resolved Plan I spent 30 minutes reviewing the record and labs, seeing the patient, discussing the treatment plan and documenting in the medical record ? Orders: Orders C Reactive Protein 6 Months - Other specified disorders involving the immune mechanism, not elsewhere classified Creatine Kinase Total 6 Months - Other specified disorders involving the immune mechanism, not elsewhere classified Erythrocyte Sedimentation Rate 6 Months - Other specified disorders involving the immune mechanism, not elsewhere classified Complete Blood Count Auto Diff 6 Months - Other specified disorders involving the immune mechanism, not elsewhere classified Comprehensive Met. Panel 6 Months - Other specified disorders involving the immune mechanism, not elsewhere classified Aldolase 6 Months - Other specified disorders involving the immune mechanism, not elsewhere classified Hepatitis A,B,C Profile 6 Months - Other specified disorders involving the immune mechanism, not elsewhere classified T Spot TB 6 Months - Other specified disorders involving the immune mechanism, not elsewhere classified Medications: New cyclobenzaprine 5 mg PO BEDTIME 14 tabs 0RF M62.838 - Other muscle spasm Coding Level of Care Code Est Pt Level 4 (68423) Complex EM visit Add On G2211 Diagnoses Antisynthetase syndrome Greater trochanteric bursitis of right hip M70.61
[2025-02-08 11:29] VITALS: BP 132/70; PULSE 75; O2SAT 99; BMI 33.7
--- OUTSIDE RECORDS SUMMARY | 2025-02-08 13:43 | XMS_ITS | Encounter Summary ---
Author Organization [facility] Address [address] [facility] [address] [place] [phone] Phone Care Team Providers Care Offender Employment Specialist Name Role Phone Stevie Vera MD Primary Care Provider [phone] Encounter Details Date Type Department Care Team (Late st Contact Info) Description 06/05/2024 Procedure Pass [address] [place] [address] Social History Tobacco Use Types Packs/Day Years Used Date Smoking Tobacco: Never Assessed Education Answer Date Recorded Are you interested in more education? Not on julieta e 06/28/2023 Are you concerned about learning? Not on file 06/28/2023 No 06/28/2023 No 06/28/2023 Digital Access Answer Date Recorded No 06/28/2023 No 06/28/2023 Reliable internet access at home? Not on file 06/28/2023 Device with a working camera? Not on file Sex and Gender Information Value Date Recorded Sex Assigned at Female 06/26/2023 9:53 AM EDT Gender Identity Female 06/26/2023 9:53 AM EDT Sexual Orientation Straight 06/26/2023 9: 53 AM EDT documented as of this encounter Plan of Treatment Upcoming Encounters Date Type Department Care Team (Late st Contact Info) Description 12/24/2024 Procedure Pass [facility] [address] [place] [address] 02/18/2025 3:00 PM EDT Office Visit [facility] Pain Management [address] [facility] [address] [place] [address] Butch Hinojosa MD [address] [place] [address] 07/08/2025 1:00 PM EDT Appointment [facility] Pulmonary Function Lab [address] [place] [address] Inga Vivas MD [address] [place] [address] [email or web address] 07/08/2025 2:00 PM EDT Appointment [facility] [address] [place] [address] Inga Vivas MD [address] [place] [address] [email or web address] 12/23/2025 11:00 AM EDT Office Visit [facility] [address] [place] [address] Jose Sellers MD [address] [place] [address] [email or web address] documented as of this encounter Visit Diagnoses Not on filedocumented in this encounter Additional Health Concerns Assessment Noted Time PHQ-2 Depression Total Score: 0 05/07/20 24 4:23 PM EDT documented as of this encounter Care Teams Offender Employment Specialist Relationship Specialty Start Date End Date Stevie Vera MD [address] [place] [id number] PCP - General Internal Medicine 06/26/23 documented as of this encounter Additional Source Comments The information contained in this document represents components of the legal health record. It is not the complete legal health record.[facility]
--- OUTSIDE RECORDS SUMMARY | 2025-02-08 13:43 | XMS_ITS | Encounter Summary ---
Author Organization [facility] Address [address] [facility] [address] [place] [address] Phone Care Team Providers Care Chief Operating Officer Name Role Phone Stevie Vera MD Primary Care Provider [phone] Encounter Details Date Type Department Care Team (Late st Contact Info) Description 09/19/2023 Procedure Pass [facility] [address] [place], [place] Social History Tobacco Use Types Packs/Day Years [...] Info) Description 12/24/2024 Procedure Pass [facility] [address] [place] [address] 02/18/2025 3:00 PM EDT Office Visit [facility] Pain Management [address] [facility] [address] [place] [address] Butch Hinojosa MD [address] [place] [address] 07/08/2025 1:00 PM EDT Appointment [facility] Pulmonary Function Lab [address] [place] [address] Inga Vivas MD [address] [place] [address] [email or web address] 07/08/2025 2:00 PM EDT Appointment [facility] [address] [place] [address] Inga Vivas MD [address] [place] [address] [email or web address] 12/23/2025 11:00 AM EDT Office Visit [facility] [address] [place] [address] Jose Sellers MD [address] [place] [address] [email or web address] documented as of this encounter Visit Diagnoses Not on filedocumented in this encounter Additional Health Concerns Assessment Noted Time PHQ-2 Depression Total Score: 0 11/12/19 24 7:58 AM EST documented as of this encounter Care Teams Chief Operating Officer Relationship Specialty Start Date End Date Stevie Vera MD [address] [place] [phone] PCP - General Internal Medicine 06/26/23 documented as of this encounter Additional Source Comments The information contained in this document represents components of the legal health record. It is not the complete legal health record.[facility]
--- OUTSIDE RECORDS SUMMARY | 2025-02-08 13:43 | XMS_ITS | Clinical Summary ---
Author Organization [facility] Address [address] [place] [phone] Phone Care Team Providers Care Audiology Director Name Role Phone Stevie Vera MD Primary Care Provider [phone] Allergies Active Allergy Reactions Criticality Noted Date Comments Codeine Nausea and/or Vomiting 02/07/2025 Hydrocodone-Acetaminophen Nausea and/or Vomiting 02/07/2025 Oxycodone-Acetaminophen Nausea and/or Vomiting 02/07/2025 Penicillin 02/07/2025 Medications Medication Sig Dispensed Refills Start Date End Date Status mycophenolate mofetil (CELLCEPT) 500 mg tabletIndications: Interstitial lung disease due to connective tissue disease TAKE 3 TABLETS (1,500 MG TOTAL) BY MOUTH 2 (TWO) TIMES A DAY. 540 tablet 1 10/21/2024 Active bempedoic acid (NEXLETOL) 180 mg tablet 180 mg daily. 10/19/2019 Active predniSONE (DELTASONE) 20 MG tablet See Instructions, 3 tablets daily for 2 weeks then 2 tablets daily for 5 days then 1 tablet daily for 5 days then discontinue medication., # 57 tablet, 0 Refills, Maintenance, 01/17/25 11:37:00 AM EDT, [facility]/pharmacy #[id number], Partial fill upon patient request if the prescription is for a schedule II opioid drug., 167.64, cm, 05/11/24 9:45:00 EDT, Height 01/17/2025 Active cholecalciferol (VITAMIN D3) 2,000 unit capsule 10/14/2019 Active traMADoL (ULTRAM) 50 mg tablet 0 Refills, Maintenance, 09/20/22 10:52:00 EST, Partial fill upon patient request if the prescription is for a schedule II opioid drug. 09/20/2022 Active Active Problems Problem Noted Date Diagnosed Date At risk for falls 12/24/2024 Encounters Date Type Department Care Team Description 02/07/2025 9:52 AM EDT - 02/07/2025 11:59 PM EDT Hospital Encounter [facility], X-Ray - [address] [address] Tiki Sol CNP Arrived Discharge Disposition: Home or Self Care 02/07/2025 9:30 AM EDT Office Visit [facility] at [address] [address] Tiki Sol CNP Rib pain (Primary Dx) 01/07/2025 9:00 AM EDT Office Visit [facility] Pain Management [address] [place] [address] Butch Hinojosa MD Greater trochanteric bursitis of right hip (Primary Dx); Tendinopathy of right gluteal region; Other chronic pain; Degeneration of intervertebral disc of lumbosacral region with discogenic back pain and lower extremity pain; Lumbar radicular pain; Primary osteoarthritis of both hips 01/05/2025 Orders Only [facility] [address] [address] Jose Sellers MD 12/29/2024 Orders Only [facility] Pain Management [address] [address] Butch Hinojosa MD Other chronic pain (Primary Dx) 12/24/2024 3:30 PM EDT [facility] Visit [facility] [address] [place] [address] Inga Vivas MD Interstitial lung disease (Primary Dx) 12/24/2024 1:20 PM EDT - 12/24/2024 11:59 PM EDT Hospital Encounter [facility] Pulmonary Function Lab [address] [place] [address] Inga Vivas MD Discharge Disposition: Home or Self Care 12/24/2024 12:34 PM EDT - 12/24/2024 1:19 PM EDT Hospital Encounter [facility] Radiology [address] [place] [address] Inga Vivas MD Discharge Disposition: Home or Self Care 12/24/2024 12:10 PM EDT - 12/24/2024 12:33 PM EDT Hospital Encounter [facility] Phlebotomy [facility] [address] [place] [address] Jose Sellers MD Discharge Disposition: Home or Self Care 12/24/2024 11:40 AM EDT Office Visit [facility] Ar[facility] [address] [place] [address] Jose Sellers MD At risk for falls (Primary Dx); Vitamin D deficiency, unspecified; Antisynthetase syndrome 12/22/2024 3:16 PM EDT - 12/22/2024 11:59 PM EDT Hospital Encounter [facility] [address] [place] [address] Inga Vivas MD Discharge Disposition: Home or Self Care 12/11/2024 10:45 AM EST Office Visit [facility] Pain Management [address] [facility] [address] [place] [address] Butch Hinojosa MD Greater trochanteric bursitis of right hip (Primary Dx); Degeneration of intervertebral disc of lumbosacral region with discogenic back pain and lower extremity pain; Lumbar spondylosis; Lumbar radicular pain; Primary osteoarthritis of both hips; Tendinopathy of right gluteal region 11/24/2024 11:38 AM EST - 11/24/2024 11:59 PM EST Hospital Encounter [facility] [address] [place] [address] Stevie Vera MD Wang, Stephanie, MD Discharge Disposition: Home or Self Care 05/07/2024 Procedure Pass [facility] Radiology [address] [place] [phone] from Last 3 Months Social History Tobacco Use Types Packs/Day Years Used Date Smoking Tobacco: Never Smokeless Tobacco: Never Tobacco Cessation:Counseling Given: Not Answered Child or Family Care Answer Date Record ed Do you have problems with on e of the following making it difficult for you to work, study, or receive health care? I choose not to answer 12/22/2024 Education Answer Date Recorded Are you interested in help w ith more adult education (for example, completing high school, GED, job training, learning the [place] language, technical skills, or developing parenting skills)? No 12/22/2024 Are you concerned about learning? Not on file 12/22/2024 No 12/22/2024 Yes 12/22/2024 Food Answer Date Recorded Within the past 6 months we worried whether our food would run out before we got money to buy more. Never True 12/22/2024 Within the past 6 months the food we bought just didn't last and we didn't have enough money to get more. Never True Residential Stability Answer Date Recor ded What is your housing situation today? I have lópez sing 12/22/2024 How many times have you move d in the past 12 months? Zero (I did not move) 12/22/2024 Paying for Meds Answer Date Recorded Do you have trouble paying for medicines? No 12/22/2024 Paying Utility Bills Answer Date Record ed Do you have trouble paying your heating or elect ricity bill? No 12/22/2024 Transportation Answer Date Recorded Has the lack of transportati on kept you from medical appointments or from getting medications? No 12/22/2024 Digital Access Answer Date Recorded No 12/22/2024 Yes 12/22/2024 Do you have reliable internet access at home? Ye s 12/22/2024 Do you have a device (e.g., phone, tablet, computer) with a working camera? Yes 12/22/2024 Sex and Gender Information Value Date Recorded Sex Assigned at Female 06/26/2023 9:53 AM EDT Gender Identity Female 06/26/2023 9:53 AM EDT Sexual Orientation Straight 06/26/2023 9: 53 AM EDT Last Filed Vital Signs Vital Sign Reading Time Taken Comments Blood Pressure 121/75 02/07/2025 9:30 AM EDT Pulse 83 02/07/2025 9:30 AM EDT Temperature 36.6 ??C (97.9 ??F) 02/07/2025 9:30 AM ED T Respiratory Rate 18 02/07/2025 9:30 AM EDT Oxygen Saturation 98% 02/07/2025 9:30 AM EDT Inhaled Oxygen Concentration - - Weight 91.2 kg (201 lb) 02/07/2025 9:30 AM EDT Height 165.1 cm (5' 5 ) 02/07/2025 9:30 AM EDT Body Mass Index 33.45 02/07/2025 9:30 AM EDT Plan of Treatment Upcoming Encounters Date Type Department Care Team (Late st Contact Info) Description 12/24/2024 Procedure Pass [facility] Radiology [address] [place] [phone] 02/18/2025 3:00 PM EDT Office Visit [facility] Pain Management [address] [facility] [address] [place] [address] Butch Hinojosa MD [address] [place] [address] [email or web address] 07/08/2025 1:00 PM EDT Appointment [facility] Pulmonary Function Lab [address] [place] [address] Inga Vivas MD [address] [place] [phone] [email or web address] 07/08/2025 2:00 PM EDT Appointment [facility] Radiology [address] [place] [address] Inga Vivas MD [address] [place] [address] [email or web address] 12/23/2025 11:00 AM EDT Office Visit [facility] Ar[facility]ritis [facility] [address] [place] [address] Jose Sellers MD [address] [place] [address] [email or web address] Health Maintenance Due Date Last Done Comments LIPID PANEL 1962 HIV ONE-TIME SCREENING (18-6 5 YEARS) 1980 PAP SMEAR 1983 MAMMOGRAM 2002 COLOGUARD 2007 COLONOSCOPY 2007 COLORECTAL CANCER SCREENING 2007 FIT TEST 2007 FOBT 2007 SIGMOIDOSCOPY 2007 VIRTUAL COLONOSCOPY 2007 COVID-19 VACCINE (4 - 2023-2 5 season) 2024 09/04/2022, 12/30/2020, 12/11/2020 DEPRESSION SCREENING 12/24/2025 12/24/2024 SCREENING FOR DIABETES 12/23/2027 12/22/2024 Adult Td,Tdap Booster 09/04/2032 09/04/2022 PNEUMOCOCCAL VACCINES (50+ years) Completed 10/04/2023 RSV VACCINE Completed 10/08/2023 HEPATITIS C SCREENING Completed 11/12/2023 ZOSTER VACCINES Completed 01/02/2024, 10/22/2023 SMOKING STATUS SCREENING (On ce After 26 Yrs) Completed 12/24/2024 HEPATITIS A VACCINES Aged Out No long er eligible based on patient's age to complete this topic HIB VACCINES Aged Out No longer eligi ble based on patient's age to complete this topic MENINGOCOCCAL VACCINES (ACWY) Aged Out No longer eligible based on patient's age to complete this topic Medical Devices Not on file Procedures Procedure Name Priority Date/Time Associated Diagnosis Comments XR RIBS 3 OR MORE VIEWS WITH PA CHEST (RIGHT) Urgent/patient waiting 02/07/2025 10:09 AM EDT Rib pain FL FLUOROSCOPY Routine 01/07/2025 8:51 AM EDT Other chronic pain CT CHEST WITHOUT CONTRAST Routine 12/24/2024 12:45 PM EDT Interstitial lung disease C-REACTIVE PROTEIN, HIGH SENSITIVITY Routine 12/24/2024 12:32 PM EDT Antisynthetase syndrome CPK (CREATINE KINASE) Routine 12/24/2024 12:32 PM EDT Antisynthetase syndrome ALDOLASE Routine 12/24/2024 12:32 PM EDT Antisynthetase syndrome VITAMIN B12 Routine 12/24/2024 12:32 PM EDT Antisynthetase syndrome 25-OH VITAMIN D Routine 12/24/2024 12:32 PM EDT Vitamin D deficiency, unspecified TSH Routine 12/24/2024 12:32 PM EDT Antisynthetase syndrome IRON AND IRON BINDING CAPACITY Routine 12/24/2024 12:32 PM EDT Antisynthetase syndrome HC SPMTRY W/VC EXPIRATORY RICARDO W/WO MXML VOL VNTJ Routine 12/24/2024 12:00 AM EDT Interstitial lung disease CBC AND DIFFERENTIAL Routine 12/22/2024 3:16 PM EDT Interstitial lung disease due to connective tissue disease COMPREHENSIVE METABOLIC PANEL Routine 12/22/2024 3:16 PM EDT Interstitial lung disease due to connective tissue disease CBC AND DIFFERENTIAL Routine 11/24/2024 11:39 AM EST Interstitial lung disease due to connective tissue disease COMPREHENSIVE METABOLIC PANEL Routine 11/24/2024 11:39 AM EST Interstitial lung disease due to connective tissue disease HEPATITIS C ANTIBODY, QUALITATIVE Routine 11/12/2023 9:30 AM EST Need for hepatitis C screening test from Last 3 Months or Most Recently Relevant to Health Maintenance Results * XR RIBS 3 OR MORE VIEWS WITH PA CHEST (RIGHT) (02/07/2025 10:09 AM EDT) Anatomical Region Laterality Modality Chest Computed Radiogr aphy 02/07/2025 10:2 9 AM EDT Impressions 02/07/2025 10:31 AM EDT No displaced rib fracture. Narrative 02/07/2025 10:31 AM EDT XR RIBS 3 OR MORE VIEWS WITH PA CHEST (RIGHT) Referring clinician's provided indication for this examination in [facility]: Pain; Multi pop in her ribs 3 days ago. ??Previous fracture in the ribs several years ago. COMPARISON: XR CHEST OUTSIDE WITH INTERPRETATION OR CONSULT ; CT CHEST WITHOUT CONTRAST FINDINGS: No displaced rib fracture. PA evaluation of the chest demonstrates no focal consolidation, pleural effusion, pulmonary edema, or pneumothorax. Cardiomediastinal silhouette is normal. Mild elevation of the right hemidiaphragm. Procedure Note Kishan Reyes MD - 02/07/2025 XR RIBS 3 OR MORE VIEWS WITH PA CHEST (RIGHT) Referring clinician's provided indication for this examination in [facility]:Pain; Multi pop in her ribs 3 days ago. Previous fracture in the ribsseveral years ago. COMPARISON: XR CHEST OUTSIDE WITH INTERPRETATION OR CONSULT ;CT CHEST WITHOUT CONTRAST FINDINGS: No displaced rib fracture. PA evaluation of the chest demonstrates no focal consolidation, pleuraleffusion, pulmonary edema, or pneumothorax. Cardiomediastinal silhouetteis normal. Mild elevation of the right hemidiaphragm. IMPRESSION: No displaced rib fracture. Tiki Sol CNP IMG XR CHEST * FL Fluoroscopy (01/07/2025 8:51 AM EDT) Narrative [facility] - 01/07/2025 8:51 AM EDT Fluoroscopy was provided during this procedure. Butch PALOMINOG [place] [facility] * CT CHEST WITHOUT CONTRAST (12/24/2024 12:45 PM EDT) MGB IMG RECOMMENDATION COMMENT Groundglass opacity; adenocarcinoma ; Differential: spectrum lesions [facility] Anatomical Region Laterality Modality Chest Computed Tomogra phy 12/25/2024 2:16 PM EDT Addenda Addendum by Nicolette Silveira MD on 12/28/2024 8:39 AM EDT ADDENDUM: Addendum: Groundglass opacity with increasing internal architecture can represent adenocarcinoma spectrum lesions. Follow-up CT scan of the chest is recommended in 6-12 months. Follow-up recommendations were communicated and documented using a closed loop communication system. Impressions 12/25/2024 4:30 PM EDT 1. ??Increased density and conspicuity of 12 mm peripheral groundglass opacity (7:178), could be adenocarcinoma spectrum lesion. Recommend follow-up CT in 6-12 months. 2. ??Similar bilateral lower lung predominant peribronchial and subpleural groundglass opacities with air trapping which most likely represents hypersensitivity pneumonitis. 3. ??Similar air trapping on expiratory images as well as excessive collapse of the posterior wall of the proximal right upper, middle and lower lobe bronchi which is consistent with bronchomalacia. ATTESTATION: I, Nicolette Silveira, as teaching physician have reviewed the images, if any, for this patient's exam, and if necessary, have edited the report originally created by Amber Miranda. Narrative 12/25/2024 4:[address] CHEST WITHOUT CONTRAST Referring clinician's provided indication for this examination in Epic: * Interstitial lung disease TECHNIQUE: Multidetector CT of the chest was performed without intravenous contrast using tailored dose modulation. COMPARISON: CT CHEST (HIGH RESOLUTION) WITHOUT CONTRAST FINDINGS: Devices/Tubes/Lines: None. Lungs: Similar bilateral lower lung predominant peribronchial and subpleural groundglass opacities with associated mild reticulation and traction bronchiectasis. Similar moderate air trapping on expiratory images. Persistent subpleural reticulation and groundglass opacities on prone imaging. Increased density and conspicuity of 12 mm peripheral groundglass opacity (7:178). Similar excessive collapse of the posterior wall of the proximal right upper, middle and lower lobe bronchi, consistent with bronchomalacia. Unchanged prolactin the left apex measuring 2.3 cm (7:69). The central airways are patent. Peripheral GGO 7:178 more organized... ADC spectrum lesion f.u in 6-12 mo Bullae Pleura: No pleural effusion or pneumothorax. Mediastinum: The heart size is normal. No pericardial effusion. Moderate hiatal hernia. Mild amount of coronary calcifications. Unchanged 1 cm right posterior thyroid nodule. Lymph Nodes: No enlarged supraclavicular, axillary, mediastinal, or hilar lymph nodes. Upper Abdomen: Similar size of the 4 cm hepatic segment 7/6 low-attenuation lesion since 2016 which is therefore likely benign, likely a hemangioma. Chest Wall: No chest wall mass. Bones: Mild degenerative changes of the thoracic spine. No suspicious lytic or blastic lesions. Procedure Note Nicolette Silveira MD - 12/25/2024 CT CHEST WITHOUT CONTRAST Referring clinician's provided indication for this examination in Epic: *Interstitial lung disease TECHNIQUE: Multidetector CT of the chest was performed without intravenouscontrast using tailored dose modulation. COMPARISON: CT CHEST (HIGH RESOLUTION) WITHOUT CONTRAST FINDINGS: Devices/Tubes/Lines: None. Lungs: Similar bilateral lower lung predominant peribronchial andsubpleural groundglass opacities with associated mild reticulation andtraction bronchiectasis. Similar moderate air trapping on expiratoryimages. Persistent subpleural reticulation and groundglass opacities onprone imaging. Increased density and conspicuity of 12 mm peripheralgroundglass opacity (7:178). Similar excessive collapse of the posteriorwall of the proximal right upper, middle and lower lobe bronchi,consistent with bronchomalacia. Unchanged prolactin the left apexmeasuring 2.3 cm (7:69). The central airways are patent. Peripheral GGO 7:178 more organized... ADC spectrum lesion f.u in 6-12mo Bullae Pleura: No pleural effusion or pneumothorax. Mediastinum: The heart size is normal. No pericardial effusion. Moderatehiatal hernia. Mild amount of coronary calcifications. Unchanged 1 cmright posterior thyroid nodule. Lymph Nodes: No enlarged supraclavicular, axillary, mediastinal, or hilarlymph nodes. Upper Abdomen: Similar size of the 4 cm hepatic segment 7/6low-attenuation lesion since 2016 which is therefore likely benign, likelya hemangioma. Chest Wall: No chest wall mass. Bones: Mild degenerative changes of the thoracic spine. No suspiciouslytic or blastic lesions. IMPRESSION: 1. Increased density and conspicuity of 12 mm peripheral groundglassopacity (7:178), could be adenocarcinoma spectrum lesion. Recommendfollow-up CT in 6-12 months. 2. Similar bilateral lower lung predominant peribronchial and subpleuralgroundglass opacities with air trapping which most likely representshypersensitivity pneumonitis. 3. Similar air trapping on expiratory images as well as excessivecollapse of the posterior wall of the proximal right upper, middle andlower lobe bronchi which is consistent with bronchomalacia. ATTESTATION: I, Nicolette Silveira, as teaching physician have reviewed theimages, if any, for this patient's exam, and if necessary, have edited thereport originally created by Amber Miranda. Inga Vivas MD IMG CT CHEST * C-reactive protein, high sensitivity (12/24/2024 12:32 PM EDT) CRP, HIGH SENSITIVITY 1.0 0.0 - 3.0 mg/L [facility] Comment: For cardiac risk assessment, reference range is <3.0mg/L. ??For inflammation assessment, reference range is <10.0mg/L. Blood 12/24/2024 12:3 2 PM EDT 12/24/2024 12:41 PM EDT Jose Sellers MD LAB BLOOD ORDERABLES Performing Organization Address [facility] Co de Phone Number [facility] [address] [place] [address] * Iron and iron binding capacity (12/24/2024 12:32 PM EDT) IRON 91 37 - 158 ug/dL [facility] Comment: IRON BINDING CAPACITY 294 220 - 460 ug/dL [facility] Comment: TRANSFERRIN SATURAT. 31 14 - 50 % [facility] Comment: Blood 12/24/2024 12:3 2 PM EDT 12/24/2024 12:41 PM EDT Jose Sellers MD LAB BLOOD ORDERABLES [facility] [address] [place] [address] * Aldolase (12/24/2024 12:32 PM EDT) ALDOLASE 2.8 <7.7 U/L [facility] Comment: (NOTE) ADDITIONAL INFORMATION This test has been modified from the supervisor tellers's instructions. Its performance characteristics were determined by [facility] in a manner consistent with CLIA requirements. This test has not been cleared or approved by the U.S. Food and Drug Administration. Blood 12/24/2024 12:3 2 PM EDT 12/24/2024 12:41 PM EDT Jose Sellers MD LAB BLOOD ORDERABLES Performing Organization Address [facility] Co de Phone Number [facility] MED AND PAT+ [address] [place] [address] * (ABNORMAL) 25-OH vitamin D (12/24/2024 12:32 PM EDT) 25 OH VIT D (TOTAL) 54(H) 20 - 50 ng/mL [facility] Blood 12/24/2024 12:3 2 PM EDT 12/24/2024 12:41 PM EDT Jose Sellers MD LAB BLOOD ORDERABLES Performing Organization Address City/[facility]/ZIP Co de Phone Number [facility] [address] [place] [address] * TSH (12/24/2024 12:32 PM EDT) TSH 1.42 0.50 - 5.70 uIU/mL [facility] Blood 12/24/2024 12:3 2 PM EDT 12/24/2024 12:41 PM EDT Jose Sellers MD LAB BLOOD ORDERABLES Performing Organization Address City/[facility]/ZIP Co de Phone Number [facility] [address] [place] [phone] * Vitamin B12 (12/24/2024 12:32 PM EDT) VITAMIN B12 357 232 - 1,245 pg/mL [facility] Comment: Blood 12/24/2024 12:3 2 PM EDT 12/24/2024 12:41 PM EDT Jose Sellers MD LAB BLOOD ORDERABLES Performing Organization Address [facility] Co de Phone Number [facility] [address] [place] [phone] * CPK (creatine kinase) (12/24/2024 12:32 PM EDT) CREATINE KINASE 38 26 - 192 U/L [facility] Blood 12/24/2024 12:3 2 PM EDT 12/24/2024 12:41 PM EDT Jose Sellers MD LAB BLOOD ORDERABLES Performing Organization Address [facility] de Phone Number [facility] [address] [place] [phone] * Pulmonary Function Test Reason for Exam: Dyspnea/Shortness of Breath; Type of PFT Test: Spirometry with bronchodilator, DLCO, Lung Volumes; Performing Location: [facility]; Please specify: [facility] (12/24/2024 12:00 AM EDT) Anatomical Region Laterality Modality Other 12/24/2024 Narrative 12/24/2024 12:00 AM EDT [employer] Notes: Two Patient Identifiers (Name, ) used to identify patient. Good patient effort throughout PFT testing. Data are acceptable and reproducible according to ATS guidelines. Recent hgb applied to DLCO Physician Interpretation: Normal spirometry and lung volumes. Diffusing capacity is within normal limits. Compared to PFTs from 05/07/24 there has been no significant change. Inga Vivas MD PFT ORDERABLES * Comprehensive metabolic panel (12/22/2024 3:16 PM EDT) Only the most recent of2 resultswithin the time period is included. SODIUM 142 133 - 146 mmol/L [facility] POTASSIUM 4.2 3.3 - 5.1 mmol/L [facility] CHLORIDE 105 96 - 108 mmol/L [facility] CO2 26 21 - 35 mmol/L [facility] BUN 16 6 - 19 mg/dL [facility] CREATININE 0.70 0.5 - 1.5 mg/dL [facility] GLUCOSE 91 70 - 99 mg/dL [facility] ALBUMIN 4.5 3.9 - 4.8 g/dL [facility] TOTAL PROTEIN 7.4 6.5 - 8.0 g/dL [facility] CALCIUM 10.0 8.4 - 10.3 mg/dL [facility] ALKALINE PHOSPHATASE 54 39 - 117 U/L [facility] TOTAL BILIRUBIN 0.3 0.0 - 1.2 mg/dL [facility] AST 19 0 - 37 U/L [facility] ALT 16 0 - 40 U/L [facility] GLOBULIN 2.9 1 - 4.8 g/dL [facility] EGFR 98 >59 mL/min/1.7 3m2 [facility] Comment:Estimated glomerular filtration rate calculated using the CKD-EPI refit equation. ANION GAP 15 10 - 20 mmol/L [facility] Blood 12/22/2024 3:16 PM EDT 12/22/2024 3:19 PM EDT Inga Vivas MD LAB BLOOD ORDERABLES Performing Organization Address City/State/[facility] Co de Phone Number [address] [phone] * (ABNORMAL) CBC and differential (12/22/2024 3:16 PM EDT) Only the most recent of2 resultswithin the time period is included. WBC 5.13 4.00 - 11.00 K/uL [facility] RBC 3.91(L) 4.00 - 5.20 M/uL [facility] HGB 11.5(L) 12.0 - 16.0 g/dL [facility] HCT 35.6(L) 36.0 - 46.0 % [facility] PLT 330 150 - 450 K/uL [facility] MCV 91.0 80.0 - 100.0 fL [facility] MCH 29.4 27.0 - 31.0 pg [facility] MCHC 32.3 32.0 - 36.0 g/dL [facility] RDW 12.5 11.5 - 14.5 % [facility] MPV 10.2 8.4 - 12.0 fL [facility] NRBC 0.00 0.00 /100 WBCs [facility] ABSOLUTE NRBC 0.00 0.00 K/uL [facility] DIFF METHOD Auto [facility] NEUTS 54.1 48.0 - 76.0 % [facility] LYMPHS 35.9 18.0 - 41.0 % [facility] MONOS 7.6 4.0 - 11.0 % [facility] EOS 1.6 0.0 - 5.0 % [facility] BASOS 0.6 0.0 - 1.5 % [facility] Granulocytes, immature (%) 0.2 0.0 - 0.9 % [facility] ABSOLUTE NEUTS 2.78 1.92 - 7.60 K/uL [facility] ABSOLUTE LYMPHS 1.84 0.72 - 4.10 K/uL [facility] ABSOLUTE MONOS 0.39 0.16 - 1.10 K/uL [facility] ABSOLUTE EOS 0.08 0.00 - 0.50 K/uL [facility] ABSOLUTE BASOS 0.03 0.00 - 0.15 K/uL [facility] Granulocytes, immature 0.01 0.00 - 0.09 K/uL [facility] Blood 12/22/2024 3:16 PM EDT 12/22/2024 3:19 PM EDT Inga Vivas MD LAB BLOOD ORDERABLES [facility] [address] [place] [address] * Hepatitis C antibody, qualitative (11/12/2023 9:30 AM EST) Pathologist [facility] HCV Nonreactive Nonreactive [facility] Comment: 11/12/2023 9:30 AM EST 11/12/2023 9:54 AM EST Jose Sellers MD LAB BLOOD ORDERABLES [facility] [address] [place] [address] from Last 3 Months or Most Recently Relevant to Health Maintenance Care Teams Audiology Director Relationship Specialty Start Date End Date Stevie Vera MD [address] [place] [address] PCP - General Internal Medicine 06/26/23 Additional Source Comments The information contained in this document represents components of the legal health record. It is not the complete legal health record.[facility]
--- OUTSIDE RECORDS SUMMARY | 2025-02-08 13:43 | XMS_ITS | Encounter Summary ---
Author Organization [facility] Address [address] [employer] [facility] [address] [place] [address] Phone Care Team Providers Care Contracts Advisor Name Role Phone Stevie Vera MD Primary Care Provider [phone] Encounter Details Date Type Department Care Team (Late st Contact Info) Description 07/18/2023 Procedure Pass [facility] Radiology [address] [place], [place] Social History Tobacco Use Types Packs/Day [...] Info) Description 12/24/2024 Procedure Pass [facility] Radiology [address] [place] [address] 02/18/2025 3:00 PM EDT Office Visit [facility] Pain Management [address] [facility] [address] [place] [address] Butch Hinojosa MD [address] [place] [address] 07/08/2025 1:00 PM EDT Appointment [facility] Pulmonary Function Lab [address] [place] [address] Inga Vivas MD [address] [place] [address] [email or web address] 07/08/2025 2:00 PM EDT Appointment [facility] [address] [place] [address] Inga Vivas MD [address] [place] [address] [email or web address] 12/23/2025 11:00 AM EDT Office Visit [facility] Arthritis Center [facility] 60 [place] [address] Jose Sellers MD [address] [place] [address] [email or web address] documented as of this encounter Visit Diagnoses Not on filedocumented in this encounter Additional Health Concerns Assessment Noted Time PHQ-2 Depression Total Score: 0 07/18/20 3:02 PM EDT documented as of this encounter Care Teams Contracts Advisor Relationship Specialty Start Date End Date Stevie Vera MD [address] [place] [address] PCP - General Internal Medicine 06/26/23 documented as of this encounter Additional Source Comments The information contained in this document represents components of the legal health record. It is not the complete legal health record.[facility]
--- OUTSIDE RECORDS SUMMARY | 2025-02-08 13:43 | XMS_ITS | Encounter Summary ---
Author Organization [facility] Address [address] [employer] [facility] [address] [place] [address] Phone Care Team Providers Care Medical Records Tech Name Role Phone Stevie Vera MD Primary Care Provider [phone] Reason for Visit * Reason Comments Rib Injury Right rib pain pt fe lt a pop after stretching pt felt it pop she continued her day and played golf and felt it worsening Encounter Details Date Type Department Care Team (Late st Contact Info) Description 02/07/2025 9:30 AM EDT Office Visit [facility] at [address] [address] Tiki Sol, AUDREY [address] [place] [address] [email or web address] Rib pain (Primary Dx) Social History Tobacco Use Types Packs/Day Years Used Date Smoking Tobacco: Never Smokeless Tobacco: Never Child or Family Care Answer Date Record ed Do you have problems with on e of the following making it difficult for you to work, study, or receive health care? I choose not to answer 12/22/2024 Education Answer Date Recorded Are you interested in help w ith more adult education (for example, completing high school, GED, job training, learning the Ivorian language, technical skills, or developing parenting skills)? [...] AM EDT documented as of this encounter Last Filed Vital Signs Vital Sign Reading [...] Mass Index 33.45 02/07/2025 9:30 AM EDT documented in this encounter Patient Instructions * Patient Instructions* Tiki Sol CNP - 02/07/2025 9:30 AM EDT Education for Rib Injury For Pain relief you can take acetaminophen or Ibuprofen Deep breathing throughout the day every hour. Use a pillow against the chest when doing deep breathing or coughing. Follow up with PCP if no sign of improvement Be seen at the ER if you have shortness of breath, new fever, worsening pain or abdominal pain during the healing process. documented in this encounter Progress Notes * Tiki Sol CNP - 02/07/2025 9:30 AM EDT Images from the original note were not included. Subjective: Patient ID: Tricia Bocanegra is a 64 y.o. female. Patient is a 64-year-old female who presents the clinic with complaints of right sided rib pain. Patient states that 3 days ago she was doing some stretches and felt a pop. After that she felt fine but then went for golfing in the 17th hole she started feeling some pain in her ribs. Patient denies any shortness of breath or abdominal pain. Review of Systems Constitutional: Negative for chills, fatigue and fever. Respiratory: Negative for chest tightness, shortness of breath and wheezing. Cardiovascular: Negative for chest pain and palpitations. Vitals: 02/07/25 0930 BP: 121/75 BP Location: Right arm Patient Position: Sitting Pulse: 83 Resp: 18 Temp: 36.6 ??C (97.9 ??F) TempSrc: Temporal SpO2: 98% Weight: 91.2 kg (201 lb) Height: 165.1 cm (5' 5 ) Objective: Physical Exam It Manager present: No industrial relations specialist needed, patients breasts remained covered. Constitutional: General: She is not in acute distress. Appearance: She is not ill-appearing, toxic-appearing or diaphoretic. Cardiovascular: Rate and Rhythm: Normal rate and regular rhythm. Pulmonary: Effort: Pulmonary effort is normal. No accessory muscle usage, respiratory distress or retractions. Breath sounds: Normal breath sounds. No decreased breath sounds, wheezing, rhonchi or rales. Chest: Chest wall: Tenderness present. Abdominal: General: Abdomen is flat. Palpations: Abdomen is soft. Tenderness: There is no abdominal tenderness. Musculoskeletal: General: Normal range of motion. Cervical back: Normal range of motion. Skin: General: Skin is warm. Capillary Refill: Capillary refill takes less than 2 seconds. Neurological: Mental Status: She is alert. No results found for this visit on 02/07/25. Procedure: Procedures Assessment/Plan: Diagnosis Plan 1. Rib pain XR Ribs (Right) Assessment and Plan: MDM Given history and physical we will x-ray to rule out fracture Radiologist report: No displaced rib fracture Vital signs are stable Lungs are clear bilaterally with no evidence of pneumothorax Chest expands equally There is no increased work of breathing or use of accessory muscles Patient is able to complete full sentences without taking a breath Patient is low risk for complications given history Patient continued to be treated outpatient Treatment Gwns-moj-azqhitc pain medication including Tylenol, Motrin, lidocaine patch Deep breathing exercises Education Discussed with patient about the use of lidocaine patch, acetaminophen or ibuprofen for pain management Discussed with doing daily hourly deep breathing to prevent pneumonia, and using a pillow against the chest for coughing and deep breathing Discussed with patient if it anytime they start experiencing shortness of breath, abdominal pain orworsening symptoms that they need to be seen at the emergency room Patient agrees with the plan and verbally understands documented in this encounter Plan of Treatment Upcoming Encounters Date Type Department Care Team (Late st Contact Info) Description 12/24/2024 Procedure Pass [facility] Radiology [address] [place] [address] 02/18/2025 3:00 PM EDT Office Visit [facility] Pain Management [address] [facility] [address] [place] [address] Butch Hinojosa MD 850 [place] [address] [email or web address] 07/08/2025 1:00 PM EDT Appointment [facility] Pulmonary Function Lab 15 [place] [address] Inga Vivas MD [address] [place] [address] [email or web address] 07/08/2025 2:00 PM EDT Appointment [facility] [address] [place] [address] Inga Vivas MD [address] [place] [address] [email or web address] 12/23/2025 11:00 AM EDT Office Visit [facility] Arthritis Center [facility] [place] [address] [place] [address] Jose Sellers MD 75 [place] [address] [email or web address] documented as of this encounter Procedures Procedure Name Priority Date/Time Associated Diagnosis Comments XR RIBS 3 OR MORE VIEWS WITH PA CHEST (RIGHT) Urgent/patient waiting 02/07/2025 10:09 AM EDT Rib pain documented in this encounter Results * XR RIBS 3 OR MORE VIEWS WITH PA CHEST (RIGHT) (02/07/2025 10:09 AM EDT) Anatomical Region Laterality Modality Chest Computed Radiogr aphy 02/07/2025 10:2 9 AM EDT Impressions 02/07/2025 10:31 AM EDT No displaced rib fracture. Narrative 02/07/2025 10:31 AM EDT XR RIBS 3 OR MORE VIEWS WITH PA CHEST (RIGHT) Referring clinician's provided indication for this examination in Epic: Pain; Multi pop in her ribs 3 [...] clinician's provided indication for this examination in [facility]:Pain; Multi pop in her ribs 3 days ago. Previous fracture in the ribsseveral years ago. COMPARISON: XR CHEST OUTSIDE WITH INTERPRETATION OR CONSULT ;CT CHEST WITHOUT CONTRAST FINDINGS: No displaced rib fracture. PA evaluation of the chest demonstrates no focal consolidation, pleuraleffusion, pulmonary edema, or pneumothorax. Cardiomediastinal silhouetteis normal. Mild elevation of the right hemidiaphragm. IMPRESSION: No displaced rib fracture. Tiki Mcgovern Sweta VENTURA IMG XR CHEST documented in this encounter Visit Diagnoses Diagnosis Rib pain- Primary Unspecified chest pain documented in this encounter Additional Health Concerns Assessment Noted Time PHQ-2 Depression Total Score: 0 12/25/19 25 3:01 PM EDT documented as of this encounter Care Teams Medical Records Tech Relationship Specialty Start Date End Date Stevie Vera MD [address] [place] [address] PCP - General Internal Medicine 06/26/23 documented as of this encounter Additional Source Comments The information contained in this document represents components of the legal health record. It is not the complete legal health record.[facility]
--- OUTSIDE RECORDS SUMMARY | 2025-02-08 13:43 | XMS_ITS | Encounter Summary ---
Author Organization [facility] Address [address] [employer] [facility] [address] [place] [address] Phone Care Team Providers Care Resist Coater Developer Name Role Phone Stevie Vera MD Primary Care Provider [phone] Encounter Details Date Type Department Care Team (Late st Contact Info) Description 12/26/2023 Procedure Pass [facility] Radiology [address] [place] [address] Social History Tobacco Use Types Packs/Day Years [...] Info) Description 12/24/2024 Procedure Pass [facility] Radiology [address] [place] [address] 02/18/2025 3:00 PM EDT Office Visit [facility] Pain Management [address] [facility] [address] [place] [address] Butch Hinojosa MD 850 [place] [address] 07/08/2025 1:00 PM EDT Appointment [facility] Pulmonary Function Lab 15 [place] [address] Inga Vivas MD 165 [place] [address] [email or web address] 07/08/2025 2:00 PM EDT Appointment [facility] [address] [place] [address] Inga Vivas MD [address] [place] [address] [email or web address] 12/23/2025 11:00 AM EDT Office Visit [facility] Arthritis Center [facility] 60 [place] [address] Jose Sellers MD 75 [place] [address] [email or web address] documented as of this encounter Visit Diagnoses Not on filedocumented in this encounter Additional Health Concerns Assessment Noted Time PHQ-2 Depression Total Score: 0 05/07/20 24 4:23 PM EDT documented as of this encounter Care Teams Resist Coater Developer Relationship Specialty Start Date End Date Stevie Vera MD [address] [place] [address] PCP - General Internal Medicine 06/26/23 documented as of this encounter Additional Source Comments The information contained in this document represents components of the legal health record. It is not the complete legal health record.[facility]
--- OUTSIDE RECORDS SUMMARY | 2025-02-08 13:43 | XMS_ITS | Encounter Summary ---
Author Organization [facility] Address [address] [employer] [facility] [address] [place] [address] Phone Care Team Providers Care Drone Software Development Engineer Name Role Phone Stevie Vera MD Primary Care Provider [phone] Encounter Details Date Type Department Care Team (Latest Contact Info) Description 02/07/2025 9:52 AM EDT - 02/07/2025 11:59 PM EDT Hospital Encounter [facility], X-Ray - [address] [address] Tiki Sol, [address] [address] [email or web address] Arrived Discharge Disposition: Home or Self Care Social History Tobacco Use Types Packs/Day Years [...] high school, GED, job training, learning the American language, technical skills, or developing parenting skills)? [...] your housing situation today? I have lópez conner 12/22/2024 How many times have you move [...] AM EDT documented as of this encounter Medications at Time of Discharge Medication Sig Dispensed Refills Start Date End Date bempedoic acid (NEXLETOL) 180 mg tablet 180 mg daily. 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 540 tablet 1 10/21/2024 predniSONE (DELTASONE) 20 MG tablet See Instructions, 3 tablets daily for 2 weeks then 2 tablets daily for 5 days then 1 tablet daily for 5 days then discontinue medication., # 57 tablet, 0 Refills, Maintenance, 01/17/25 11:37:00 AM EDT, [facility]/pharmacy #[id number], Partial fill upon patient request if the prescription is for a schedule II opioid drug., 167.64, cm, 05/11/24 9:45:00 EDT, Height 01/17/2025 traMADoL (ULTRAM) 50 mg tablet 0 Refills, Maintenance, 09/20/22 10:52:00 EST, Partial fill upon patient request if the prescription is for a schedule II opioid drug. 09/20/2022 documented as of this encounter Plan of Treatment Upcoming Encounters Date Type Department Care Team (Late st Contact Info) Description 12/24/2024 Procedure Pass [facility] Radiology [address] [place] [address] 02/18/2025 3:00 PM EDT Office Visit [facility] Pain Management [address] [facility] [address] [place] [address] Butch Hinojosa MD 850 [place] [address] [email or web address] 07/08/2025 1:00 PM EDT Appointment [facility] Pulmonary Function Lab 15 [place] [address] Inga Vivas MD [address] [place] [address] [email or web address] 07/08/2025 2:00 PM EDT Appointment [facility] Radiology [address] [place] [address] Inga Vivas MD [address] [place] [address] [email or web address] 12/23/2025 11:00 AM EDT Office Visit [facility] Arthritis Center Main [place] 60 [place] [address] Jose Sellers MD 75 [place] [address] [email or web address] documented as of this encounter Procedures Procedure [...] clinician's provided indication for this examination in [facility]: Pain; Multi pop in her ribs [...] clinician's provided indication for this examination in [facility]:Pain; Multi pop in her ribs 3 [...] fracture. Tiki Sol CNP IMG XR CHEST documented in this encounter Visit Diagnoses Not on filedocumented in this encounter Additional Health Concerns Assessment Noted Time PHQ-2 Depression Total Score: 0 12/25/19 25 3:01 PM EDT documented as of this encounter Care Teams Drone Software Development Engineer Relationship Specialty Start Date End Date Stevie Vera MD [address] [place] [phone] PCP - General Internal Medicine 06/26/23 documented as of this encounter Additional Source Comments The information contained in this document represents components of the legal health record. It is not the complete legal health record.[facility]
--- OUTSIDE RECORDS SUMMARY | 2025-02-08 13:43 | XMS_ITS | Encounter Summary ---
Author Organization [facility] Address [address] [facility] [address] [place] [address] Phone Care Team Providers Care Power House Engineer Name Role Phone Stevie Vera MD Primary Care Provider [phone] Encounter Details Date Type Department Care Team (Late st Contact Info) Description 07/18/2023 Procedure Pass [facility] Echocardiography 70 [place] [address] Social History Tobacco Use Types Packs/Day Years [...] Procedure Pass [facility] 75 [place] [address] 02/18/2025 3:00 PM EDT Office Visit [facility] Pain Management [address] [facility] [address] [place] [address] Butch Diego MD 850 [place] [address] 07/08/2025 1:00 PM EDT Appointment [facility] Pulmonary Function Lab 15 [place] [address] Inga Vivas MD [address] [place] [address] [email or web address] 07/08/2025 2:00 PM EDT Appointment [facility] [address] [place] [address] Inga Vivas MD [address] [place] [address] [email or web address] 12/23/2025 11:00 AM EDT Office Visit [facility] Arthritis Center [facility] 60 [place] [address] Jose Sellers MD 75 [place] [address] [email or web address] documented as of this encounter Visit Diagnoses Not on filedocumented in this encounter Additional Health Concerns Assessment Noted Time PHQ-2 Depression Total Score: 0 07/18/20 3:02 PM EDT documented as of this encounter Care Teams Power House Engineer Relationship Specialty Start Date End Date Stevie Vera MD [address] [place] [address] PCP - General Internal Medicine 06/26/23 documented as of this encounter Additional Source Comments The information contained in this document represents components of the legal health record. It is not the complete legal health record.[facility]
--- OUTSIDE RECORDS SUMMARY | 2025-02-08 13:43 | XMS_ITS | Encounter Summary ---
Author Organization [facility] Address [address] [employer] [facility] [address] [place] [address] Phone Care Team Providers Care Notcher Name Role Phone Stevie Vera MD Primary Care Provider [phone] Encounter Details Date Type Department Care Team (Late st Contact Info) Description 05/07/2024 Procedure Pass [facility] Radiology [address] [place] [address] Social History Tobacco Use Types Packs/Day Years Used Date Smoking Tobacco: Never Smokeless Tobacco: Never Education Answer Date Recorded Are you interested [...] st Contact Info) Description 12/24/2024 Procedure Pass [facility] Radiology [address] [place] [address] 02/18/2025 3:00 PM EDT Office Visit [facility] Pain Management [address] [facility] [address] [place] [address] Butch Hinojosa MD [address] [place] [address] 07/08/2025 1:00 PM EDT Appointment [facility] Pulmonary Function Lab 15 [place] [address] Inga Vivas MD 165 [place] [address] [email or web address] 07/08/2025 2:00 PM EDT Appointment [facility] 75 [place] [address] Inga Vivas MD [address] [place] [address] [email or web address] 12/23/2025 11:00 AM EDT Office Visit [facility] Arthritis Center Main [place] 60 [place] [address] Jose Sellers MD [address] [place] [address] [email or web address] documented as of this encounter Visit Diagnoses Not on filedocumented in this encounter Additional Health Concerns Assessment Noted Time PHQ-2 Depression Total Score: 0 12/25/19 25 3:01 PM EDT documented as of this encounter Care Teams Notcher Relationship Specialty Start Date End Date Stevie Vera MD [address] [place] [address] PCP - General Internal Medicine 06/26/23 documented as of this encounter Additional Source Comments The information contained in this document represents components of the legal health record. It is not the complete legal health record.[facility]
--- OUTSIDE RECORDS SUMMARY | 2025-02-08 13:43 | XMS_ITS | Encounter Summary ---
Author Organization [facility] Address [address] [facility] [address] [place] [phone] Phone Care Team Providers Care Restorative Rehab Aide Name Role Phone Stevie Vera MD Primary Care Provider [phone] Reason for Visit * Reason Onset Date Comments ACTIVE SYMPTOMS 01/21/2024 Dellaripa Encounter Details Date Type Department Care Team (Late st Contact Info) Description 01/21/2024 Telephone [facility] [address] [address] Jaqui Ghotra, RN [address] [place], [place] [id number] [place], [place] [email or web address] [email or web address] SYMPTOMS (Dellaripa) Social History Tobacco Use Types Packs/Day Years [...] AM EDT documented as of this encounter Progress Notes * Jaqui Ghotra RN - 01/21/2024 1:48 PM EDT Situation: Call returned. The patient is c/o right leg pain, 8/10, difficulty walking. The pain is throughout the leg. I have the same pain in my leg when saw me. I feel like it's a hamstring pull, but now it's also in the calf. The pain is shooting and radiates throughout the leg. Walked 3 miles yesterday, as she normally does for exercise, but when she returned, she couldn't stand up; penguin-walking. Started a few months ago but in the last month has become unmanageable. Treating with ice, elevation, heating pad, stretches, Theragun, massage therapy. Went to Urgent Care today: dx myositis. States xray of the leg was negative, does have arthritis in the hip; told no risk of clot. Treated with Tylenol only. Denies swelling, redness, warmth, stiff joints, fever, rash. Asking for external referral to PT in order to get ultrasound treatment. Declines prednisone but willing to consider any other suggestions from . Background: Hx ASS. Last Rheum appt: ?12/17/23 Next Rheum appt: nothing is scheduled Assessment/Action: External referral to PT pended. Pharmacy verified. Response/Recommendation: Advised that appointment may be needed. Will update and one of us will call the patient back with the plan. When referral is signed, will need to be faxed to external PT. * Lizzy Jackson - 01/21/2024 11:48 AM EDT Patient Symptom Call: RE: Tricia Sahra What is the symptom? Rt leg pain (difficulty walking) How long has the symptom been present? A month Is this a new or existing (have had before) symptom? Exist - If the existing symptom has changed, please explain what is different: Pain increasing documented in this encounter Plan of Treatment Upcoming Encounters Date Type Department Care Team (Late st Contact Info) Description 12/24/2024 Procedure [facility] Radiology [address] [place] [address] 02/18/2025 3:00 PM EDT Office Visit [facility] Pain Management [address] [facility] [address] [place] [address] Butch Hinojosa MD [address] [place] [address] [email or web address] 07/08/2025 1:00 PM EDT Appointment [facility] Pulmonary Function Lab [address] [place] [address] Inga Vivas MD [address] [place] [address] [email or web address] 07/08/2025 2:00 PM EDT Appointment [facility] Radiology [address] [place] [address] Inga Vivas MD [address] [place] [address] [email or web address] 12/23/2025 11:00 AM EDT Office Visit [facility] [address] [place] [address] Jose Sellers MD [address] [place] [address] [email or web address] documented as of this encounter Visit Diagnoses Diagnosis Myositis- Primary Unspecified myalgia and myositis documented in this encounter Additional Health Concerns Assessment Noted Time PHQ-2 Depression Total Score: 0 12/26/19 24 4:31 PM EDT documented as of this encounter Care Teams Restorative Rehab Aide Relationship Specialty Start Date End Date Stevie Vera MD [address] [place] [address] PCP - General Internal Medicine 06/26/23 documented as of this encounter Additional Source Comments The information contained in this document represents components of the legal health record. It is not the complete legal health record.[facility]
== END 2025-02-08 12:01 | disposition home or self-care (01) ==
LOC: HO.RHE 11:21
PROVIDERS: PCP Internal Medicine; Visit Provider Student in an Organized Health Care Education/Training Program
DX: D89.89 Other specified disorders involving the immune mechanism, not elsewhere classified (principal); M70.61 Trochanteric bursitis, right hip
CPT/HCPCS: 99214

== ENCOUNTER 2025-02-22 10:10 | Outpatient (AMB) | payer BC, SELFPAY ==
--- NOTE | 2025-02-22 10:17 | MHC.OFFVIS ---
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 She is an avid golfer. She noticed that usually she was able to play the whole gain without any significant respiratory complaints. But then she started developing some increasing shortness of breath specially when going up a small hill. She start using her inhaler more often. Subsequently symptoms got much worse sometime in August where she developed some laryngitis sore throat in addition to the worsening respiratory symptoms. She had gone to an urgent care where she had an x-ray demonstrating bibasilar opacities suggesting bilateral pneumonia. She was given antibiotics and a follow-up with primary care doctor. The patient had a repeat chest x-ray in September and the findings are still there. Her other symptoms such it up but she was still complaining of dyspnea on exertion. She was referred to Pulmonary. Ultimately underwent a CT scan of the chest. The CT scan of the chest was noncontrast. Again demonstrating now the airspace disease primarily at the bases bilaterally. Dense ground-glass areas with consolidation. Also had a cyst in the left upper lung area. The suspicion was that the patient had organizing pneumonia. She was given additional antibiotics in case was infectious and also given prednisone in case it was cryptogenic organizing pneumonia. However, the patient did not take the prednisone from the get go. She was concerned about taking so much steroids. Therefore she completed the antibiotics. She did start the prednisone few days prior to her next CT scan in December of 2022. However, the patient was still symptomatic with shortness of breath and her CT scan of the chest did not demonstrate any significant changes. Therefore she started taking the prednisone more regularly initially prednisone 40 mg daily which she took for about 8 weeks from mid December to February. Then her prednisone was decreased to 20 mg daily until her CT scan that occurred in March 26. The CT scan demonstrated very similar findings with a dense areas of ground-glass in the bases not was increasing reticular changes likely from scarring. During the visit we did go for brief walking oximetry the patient did have increase heart rate up to 115 with minimal activity and the pulse ox did decrease down to about 92% with activity. The patient did not qualify for oxygen. The patient does state that when she is going up hills she has an oximeter and does go to the high 80s when she is really exerting herself. She is no longer on prednisone. The patient does have a rescue inhaler that she uses as needed. As far as medications no real new medications except for the prednisone and her cholesterol medication. We also talked about potential exposures she does not smoke cigarettes and she does not do any vaping or any other inhalational or recreational drugs. She does have a hiatal hernia and she was evaluated by GI with an endoscopy and a colonoscopy. She does have a hot tub but is outside. No other fumes or toxins that she can think of. 05/13/2023 the patient is here for a pulmonary follow-up visit. Overall she is feeling a little better. She still playing golf. Before she would get short of breath and tachypneic after 12 holes of golf. Now she is able to get to 18 which is very happy about. She did start the Symbicort inhaler after the bronchoscopy. Seems like it is helping. She does have some hoarseness therefore will provide with air the AeroChamber. She had hoarseness even before the inhaler was started though. During the bronchoscopy she did have some evidence of inflammation of the larynx likely from coughing a copy also from reflux disease. Also interestingly the airways demonstrate significant bronchomalacia that was not expected with some evidence of bronchitis. In addition to that we did do a BAL from the right middle lobe and did demonstrate some slight pinkish return suggesting some degree of diffuse alveolar hemorrhage. We did request BAL sent for hemosiderin-laden macrophages in there there were indeed present. The findings of hemosiderin-laden macrophages suggest the possibility of a mild vasculitis versus can also be related to lung injury or her interstitial lung conditions that may also resulted in mild hemosiderosis. Therefore, will have her undergo celiac testing which sometimes can result in hemosiderosis as well as other laboratories. Patient also had significant bronchomalacia during the bronchoscopy which was not expected. Again we talked about different differential diagnoses that can result in the bronchomalacia itself. Will go ahead and request the barium swallow to rule out the possibility of underlying reflux disease. Patient is also scheduled to have a repeat CT scan. Clinically the patient is feeling a little better although if the CT scan still demonstrates abnormal findings on the CT scan will consider a surgical biopsy. She did have transbronchial biopsies although is very technically difficult and although we had normal benign bronchial tissue no mention about bronchioalveolar tissue making the biopsies less diagnostic still the normal findings is reassuring. 07/08/2023 the patient is here for a pulmonary follow-up visit. The patient did follow-up with thoracic surgery but opted on not having a biopsy as of yet. Therefore, we made a referral to [facility] for her to get a 2nd opinion there. As far as her breathing is about the same. Still complaining of dyspnea on exertion. Gxvn-no-oitlzhpf severity. She has not noticed any significant improvement or worsening sense back in December 2022. Prior to that she had gone to [place] and did she did undergo a holistic type of therapy that provide her some relief at least from the pleuritic chest pain. We again reviewed her biopsy results which although were reassuring were nondiagnostic. She did talk about considering a cryo biopsy instead of a wedge biopsy. I explained to her that her interstitial lung disease pretty peripheral and also on the basis. Also during the bronchoscopy that I performed she had a lot of dynamic movement of her diaphragm making it difficult to safely biopsy the peripheral parenchyma. I do believe that if she wants a definitive answer it would be best provided with a wedge biopsy. Also she has been seen sick for about a year ready and therefore I would think that a more definitive intervention would be indicated. Her last CT scan of the chest was done back in May 2023. Again demonstrating the bibasilar airspace disease with some errands of ground-glass but no honeycombing noted. The differential includes IPF, chronic hypersensitivity pneumonitis and also fibrotic NSIP. But not believe that this is cryptogenic organizing pneumonia based on the fact that he just has not responded to corticosteroid therapy. The patient also has significant allergies with an elevated IgE. We did discuss staring Xolair in the future once her ILD workup was established. 11/06/2023 the patient is here for a pulmonary follow-up visit. Overall she is doing fairly well from a respiratory status. Denies any significant shortness of breath at rest. She does have some dyspnea with activity. Mild in severity. She has been exercising regular basis. The patient did follow-up in [place]. She has been very happy with her experience. 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 She has been having some hip discomfort she is wondering if that musculoskeletal symptoms could be related to the underlying connective tissue disease. The recommendation was for her to get vaccinated for both shingles and RSV as well as flu and dentist start mycophenolate. The patient did have PFTs and also a CT scan in [place]. She is going to follow closely there as well. From an asthma standpoint the patient seems to be doing okay her IgE levels were elevated but seems like her asthma symptoms are better. During the visit we did go for brief walking oximetry should maintain a pulse ox 96%. This is reassuring. We also talked about the importance of pulmonary rehabilitation. We also talked about antifibrotic agents in case the fibrosis gets worse but at this point is been reassuring that he has not significantly changed based on the CT scans that we have. 06/24/2024 the patient is here for a pulmonary follow-up visit. Overall she is doing okay. She is on the full dose of mycophenolate 1500 mg twice a day. She is tolerating it well without any adverse effects. She is being monitored closely every 3-4 months at [facility]. The patient has not had to use her rescue inhaler as often and she stopped using the Symbicort which is reassuring. She is back to exercising and playing golf. Although she still has a hard time going up a flight of stairs. We did go for brief walking oximetry in the office and going up a flight of stairs her oxygen oxygen was great at 97%. But heart rate increased quickly to 140 beats per minute and she was visibly dyspneic hard to speak in full sentence. 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 The patient has not been a candidate for office since then has not been any worsening of disease and also has not required any additional immunosuppression at this time. She does have Rheumatology in [place] as well, although, I do believe that a local medical information officer would also be helpful in order to follow her. The patient also has had pulmonary function studies. I do believe that she would be a great candidate for pulmonary rehabilitation. Will go ahead and request a stress echo to assess for exercise-induced pulmonary hypertension and will see about getting her in to pulmonary rehabilitation at this time.\ 10/26/2024 the patient is here for a pulmonary follow-up visit. Overall the patient has been doing okay. She has been dealing with some hip and back issues. He is causing significant pain and discomfort. She had been seen a specialist in [place] and also saw the medical information officer locally. Covert likely she has component of osteoarthritis and bursitis. 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 She had been on the 1500 mg b.i.d. of the mycophenolate. She seems to be tolerating it well except for significant constipation. She is going to follow-up in [place] in early spring. She will likely get a CT scan also PFTs. I am hopeful that if she is stable she can decrease her mycophenolate some. She was wondering about Rituxan. Explained to her that if she is finding worsening disease then at that point the [place] team may consider Rituxan. But at this point seems that clinically she is doing well from a respiratory status. She needs to get her flu vaccine. She needs to stop her mycophenolate 1st in order to do that. Also to note she did undergo the echocardiogram demonstrating no evidence of any ischemia and no evidence of any elevations in her end diastolic pressure and for that matter PA pressures. The patient follow-up in 4-6 months. 02/22/2025 the patient is here for pulmonary follow-up visit. She has had pretty eventful few months. 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 Seems more sensory neuro. She was placed on high-dose of prednisone and she did receive some slight improvement. She is monitoring closely working with ENT. Subsequently after that she did receive some cortical steroid shots directly from ENT. She has noticed some improvement she is also here in some tinnitus. After that she was doing some stretching and she felt a pop sensation on the right side of her call still area and started developing some significant right-sided chest discomfort some radiating from the back. She did go to [facility] when she had an x-ray demonstrating no fractures. They thought it was likely musculoskeletal. She likely pulled a muscle. The patient did follow-up with the pain management orthopedic [facility] and they did request an MRI to assess the fact that her vertebral body had a slight compression on the right side and bring up the question of radiculopathy. So therefore she is going to have the MRI done soon and then she is going to follow-up with them and also consider physical therapy. She continues on the mycophenolate 3 g a day. At no point does Rheumatology and Pulmonary in [place] would want to decrease her dose. She did have a CT scan and also a PFTs that were initially reassuring. Then they did mention that there was a new 12 mm ground-glass nodular density. Therefore she is going to have another repeat CAT scan in 6 months to follow-up with that. Explained to her that that area is pretty abnormal and is difficult to differentiate her interstitial lung disease from a concomitant process and I do agree that repeating the CAT scan in 6 months is warranted. In addition, the patient started developing a rash. She had gotten a prescription for Flexeril when she pulled the muscle potentially. Therefore thinks that the only new medication was the Flexeril that could have resulted in the rash. She is taking Benadryl. She has caused some drowsiness. She can switch over to Zyrtec she can take the twice a day. I will have her get some allergy testing to him some allergy levels to assess to see if there is anything else that could be contributing to this allergic rash. 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 Asthma Allergies Acute respiratory failure Tachycardia ILD (interstitial lung disease) Pneumonia Surgical History History of abdominoplasty (~2020) History of foot surgery History of bilateral breast reduction surgery (~2020) History of esophagogastroduodenoscopy (EGD) History of colonoscopy History of cholecystectomy (~2015) History of bronchoscopy Social History Patient Tobacco Use Status: Never used Tobacco Review of Systems Const Denies chills, Denies fatigue, Denies fever(s), Denies weight gain and Denies weight loss Eyes Reports no additional complaints ENT Denies dizziness, Reports hearing loss and Reports tinnitus Card Denies chest pain, Reports chest pain at rest, Denies leg edema, Denies lightheadedness, Denies palpitations, Denies dyspnea on exertion, Denies orthopnea and Denies other Resp Denies cough, Reports pain on inspiration, Denies dyspnea on exertion and Denies wheezing GI Denies hematochezia and Denies change in stool character Musc Denies abnormal gait, Reports myalgias, Reports arthralgias, Denies muscle weakness, Denies numbness, Denies radiating pain into limb and Denies tingling Skin/Breast Reports rash Neuro Denies abnormal gait, Denies dizziness, Denies numbness and Denies tingling Endo Denies fatigue and Denies palpitations Jorge/Lymph Denies easy bleeding, Denies easy bruising and Denies lymphadenopathy Aller/Immun Denies wheezing Physical Exam Vital Signs: Last Vital Signs Pulse 90 02/22/25 10:18 BP 110/64 02/22/25 10:18 Pulse Ox 100 02/22/25 10:18 Oxygen Delivery Method Room Air 02/22/25 10:18 BMI result Body Mass Index 33.6 Const General: comfortable HEENT Head: Yes normocephalic Neck Neck: Yes supple Chest Chest palpation & inspection: normal inspection of the chest Resp Effort & Inspection: normal respiratory effort Auscultation: no rales and diminished lung sounds Cardio Rate: tachycardic Rhythm: regular rhythm Heart sounds: S1 normal heart sound present and S2 normal heart sound present GI Palpation (GI): Soft to palpation Skin Rashes: rashes noted Extrem General: Yes no clubbing, cyanosis or edema Assessment & Plan Assessment & Plan (1) Asthma: Code(s): J45.909 - Unspecified asthma, uncomplicated Category: Medical Qualifiers: Asthma complication type: uncomplicated Asthma persistence: persistent Asthma severity: moderate Qualified Code(s): J45.40 - Moderate persistent asthma, uncomplicated (2) Allergies: Code(s): T78.40XA - Allergy, unspecified, initial encounter Category: Medical Qualifiers: Encounter type: subsequent encounter Qualified Code(s): T78.40XD - Allergy, unspecified, subsequent encounter (3) ILD (interstitial lung disease): Comment: ?NSIP Code(s): J84.9 - Interstitial pulmonary disease, unspecified Category: Medical (4) Bronchomalacia: Comment: based on bronchoscopy Code(s): J98.09 - Other diseases of bronchus, not elsewhere classified Category: Medical (5) Antisynthetase syndrome: Code(s): D89.89 - Other specified disorders involving the immune mechanism, not elsewhere classified Category: Medical (6) Dyspnea: Code(s): R06.00 - Dyspnea, unspecified Category: Medical Qualifiers: Dyspnea type: dyspnea on exertion Qualified Code(s): R06.09 - Other forms of dyspnea (7) Pulmonary fibrosis: Code(s): J84.10 - Pulmonary fibrosis, unspecified Category: Medical (8) Rash: Code(s): R21 - Rash and other nonspecific skin eruption Category: Medical (9) Chest pain: Code(s): R07.9 - Chest pain, unspecified Category: Medical Qualifiers: Chest pain type: other chest pain Qualified Code(s): R07.89 - Other chest pain Plan continue Mycophenalate as per [facility] Will continue to F/U with [facility] Lung center and Rheumatology [facility] as needed Reflux diet stress ECHO : no pulmonary HTN noted Labs pain control zyrtec F/U 4-6 months Orders: Orders Resp Allergy Profile Region I Today R21 - Rash and other nonspecific skin eruption, R91.1 - Solitary pulmonary nodule Complete Blood Count Auto Diff Today R21 - Rash and other nonspecific skin eruption ZACHERY Reflex Titer and Pattern Today R21 - Rash and other nonspecific skin eruption Basic Metabolic Panel Today R21 - Rash and other nonspecific skin eruption Erythrocyte Sedimentation Rate Today R21 - Rash and other nonspecific skin eruption Immunoglobulin E Today R21 - Rash and other nonspecific skin eruption Sjogren's Antibodies Today R21 - Rash and other nonspecific skin eruption Medications: New tramadol 100 mg (2 x 50 mg) PO BID PRN 30 tabs 0RF pain 10 days cetirizine (Zyrtec) 10 mg PO BID 60 tabs 0RF 30 days Coding Level of Care Code Est Pt Level 4 (28850) Complex EM visit Add On G2211 Diagnoses Moderate persistent asthma without complication J45.40 Asthma complication type: uncomplicated Asthma persistence: persistent Asthma severity: moderate Allergy, subsequent encounter T78.40XD Encounter type: subsequent encounter ILD (interstitial lung disease) J84.9 Bronchomalacia J98.09 Antisynthetase syndrome D89.89 Dyspnea on exertion R06.09 Dyspnea type: dyspnea on exertion Pulmonary fibrosis J84.10 Rash R21 Other chest pain R07.89 Chest pain type: other chest pain Time Spent (min) 20
[2025-02-22 10:18] VITALS: BP 110/64; PULSE 90; O2SAT 100; BMI 33.6
--- OUTSIDE RECORDS SUMMARY | 2025-02-22 10:39 | XMS_ITS | Encounter Summary ---
Author Organization [facility] Address [address] [place] [address] Phone Care Team Providers Care Head And Neck Surgeon Name Role Phone Stevie Vera MD Primary Care Provider Encounter Details Date Type Department Care Team (Late st Contact Info) Description 02/18/2025 9:25 AM EDT - 02/18/2025 9:26 AM EDT Hospital Encounter [facility], X-Ray - [address] [place] [address] Chelsy Waddell, PA-C [address], [address] [place] [address] [email or web address] Discharge Disposition: Home or Self Care Social [...] high school, GED, job training, learning the [place] language, technical skills, or developing parenting skills)? [...] computer) with a working camera? Yes 12/22/2024 Comments Unknown Sex and Gender Information Value Date Recorded Sex Assigned at Female 06/26/2023 9:53 AM EDT Legal Sex Female 9:48 AM EDT Gender Identity Female 06/26/2023 9:53 AM EDT Sexual Orientation Straight 06/26/2023 9: 53 AM EDT documented as of this encounter Medications at Time of Discharge bempedoic acid (NEXLETOL) 180 mg tablet 180 mg daily. 10/19/2019 cholecalciferol (VITAMIN D3) 2,000 unit capsule 10/14/2019 mycophenolate mofetil (CELLCEPT) 500 mg tabletIndication s:Interstitial lung disease due to connective tissue disease [...] 0 Refills, Maintenance, 01/17/25 11:37:00 AM EDT, [facility]/pharmacy #[id number], Partial fill upon patient request [...] st Contact Info) Description 12/24/2024 Procedure Pass [facility] Radiology [address] [place] [address] 02/18/2025 Procedure Pass [facility] - MRI [address] [place] [address] 02/24/2025 8:00 PM EDT Appointment [facility] Outpatient Care - MRI [address] [place] [address] Butch Hinojosa MD [address] [place] [address] 04/02/2025 1:40 PM EDT Office Visit [facility] Pain Management [address] [place] [address] [address] [place] [address] Butch Hinojosa MD [address] [place] [address] 07/08/2025 1:00 PM EDT Appointment [facility] Pulmonary Function Lab 15 [place] [address] Inga Vivas MD [address] [place] [address] [email or web address] 07/08/2025 2:00 PM EDT Appointment [facility] Radiology [address] [place] [address] Inga Vivas MD [address] [place] [address] [email or web address] 12/23/2025 11:00 AM EDT Office Visit [facility] Arthritis Center Main [place] [address] [address] Jose Sellers MD 75 [place] [address] [email or web address] documented as of this encounter Procedures Procedure Name Priority Date/Time Associated Diagnosis Comments XR THORACIC SPINE 2 VIEW Urgent/patient waiting 02/18/2025 10:08 AM EDT Right-sided low back pain without sciatica, unspecified chronicity documented in this encounter Results * XR THORACIC SPINE 2 VIEW (02/18/2025 10:08 AM EDT) MGB IMG RE RECORDING MIXER COMMENT Age indeterminate mild compression deformity of the superior endplate of L2, new since January 28, 2024. [facility] Anatomical Region Laterality Modality T-spine Computed Radiogr aphy 02/18/2025 10:3 0 AM EDT Impressions 02/18/2025 10:42 AM EDT 1. ??Age indeterminate mild compression deformity of the superior endplate of L2, new since January 28, 2024. This could be further evaluated with CT of the lumbar spine if clinically warranted. 2. ??No displaced fracture of the thoracic spine. A clinically significant result was initiated on 02/18/2025 10:42 AM, Message ID [id number]. Narrative 02/18/2025 10:42 AM EDT XR THORACIC SPINE 2 VIEW, XR LUMBOSACRAL SPINE 2-3 VIEWS Referring clinician's provided indication for this examination in Epic: Pain; pulled ribs on right side 2 weeks ago persistent mid right upper back pain and rib pain. COMPARISON: CT CHEST WITHOUT CONTRAST ; MRI LUMBAR SPINE (NEURO) WITHOUT CONTRAST FINDINGS: Thoracic spine: Normal alignment. Normal vertebral body heights. Multilevel degenerative changes. Lumbar spine: Mild levoscoliosis of the lumbar spine. Age indeterminate mild compression deformity of the superior endplate of L2. Multilevel degenerative changes, most marked at L4-5 and L5-S1. Intact sacroiliac joints. Cholecystectomy clips. Procedure Note Lele Anderson MD - 02/18/2025 XR THORACIC SPINE 2 VIEW, XR LUMBOSACRAL SPINE 2-3 VIEWS Referring clinician's provided indication for this examination in Epic:Pain; pulled ribs on right side 2 weeks ago persistent mid right upperback pain and rib pain. COMPARISON: CT CHEST WITHOUT CONTRAST ; MRI LUMBAR SPINE(NEURO) WITHOUT CONTRAST FINDINGS: Thoracic spine: Normal alignment. Normal vertebral body heights.Multilevel degenerative changes. Lumbar spine: Mild levoscoliosis of the lumbar spine. Age indeterminatemild compression deformity of the superior endplate of L2. Multileveldegenerative changes, most marked at L4-5 and L5-S1. Intact sacroiliacjoints. Cholecystectomy clips. IMPRESSION: 1. Age indeterminate mild compression deformity of the superior endplateof L2, new since January 28, 2024. This could be further evaluated with CTof the lumbar spine if clinically warranted. 2. No displaced fracture of the thoracic spine. A clinically significant result was initiated on 02/18/2025 10:42 AM,Message ID [id number]. Chelsy Waddell PA-C IMG XR SPINE Final Result documented in this encounter Visit Diagnoses Not on filedocumented in this encounter Additional Health Concerns Assessment Noted Time PHQ-2 Depression Total Score: 0 12/25/19 25 3:01 PM EDT documented as of this encounter Care Teams Head And Neck Surgeon Relationship Specialty Start Date End Date Stevie Vera MD [address] [place] [address] PCP - General Internal Medicine 9/13/23 documented as of this encounter Additional Source Comments The information contained in this document represents components of the legal health record. It is not the complete legal health record.[facility]
--- OUTSIDE RECORDS SUMMARY | 2025-02-22 10:39 | XMS_ITS | Encounter Summary ---
Author Organization [facility] Address [address] [place] [address] Phone Care Team Providers Care Chucking And Boring Machine Operator Name Role Phone Stevie Vera MD Primary Care Provider [phone] Encounter Details Date Type Department Care Team (Late st Contact Info) Description 07/18/2023 Procedure Pass [facility] Radiology [address] [place] [address] Social History Tobacco Use Types Packs/Day Years [...] with a working camera? Not on file Comments Unknown Sex and Gender Information Value Date Recorded Sex Assigned at Female 06/26/2023 9:53 AM EDT Legal Sex Female 9:48 AM EDT Gender Identity Female 06/26/2023 9:53 AM EDT Sexual Orientation Straight 06/26/2023 9: 53 AM EDT documented as of this encounter Plan of Treatment Upcoming Encounters Date Type Department Care Team (Late st Contact Info) Description 12/24/2024 Procedure Pass [facility] 75 [place] [address] 02/18/2025 Procedure Pass [facility] Outpatient Care - MRI [address] [place] [address] 6[address] [place] [address] 02/24/2025 8:00 PM EDT Appointment [facility] for Outpatient Care - MRI [address] [facility], [address] [place] [address] Butch Hinojosa MD [address] [place] [address] [email or web address] 04/02/2025 1:40 PM EDT Office Visit [facility] Pain Management [address] [facility] [address] [place] [address] Butch Hinojosa MD [address] [place] [address] [email or web address] 07/08/2025 1:00 PM EDT Appointment [facility] Pulmonary Function Lab 15 [place] [address] Inga Vivas MD [address] [place] [address] [email or web address] 07/08/2025 2:00 PM EDT Appointment [facility] 75 [place] [address] Inga Vivas MD [address] [place] [address] [email or web address] 12/23/2025 11:00 AM EDT Office Visit [facility] Arthritis Center Main [place] 60 [place] [address] Jose Sellers MD 75 [place] [address] [email or web address] documented as of this encounter Visit Diagnoses Not on filedocumented in this encounter Additional Health Concerns Assessment Noted Time PHQ-2 Depression Total Score: 0 10/05/20 23 3:02 PM EDT documented as of this encounter Care Teams Chucking And Boring Machine Operator Relationship Specialty Start Date End Date Stevie Vera MD [address] [place] [phone] PCP - General Internal Medicine 06/26/23 documented as of this encounter Additional Source Comments The information contained in this document represents components of the legal health record. It is not the complete legal health record.[facility]
--- OUTSIDE RECORDS SUMMARY | 2025-02-22 10:39 | XMS_ITS | Encounter Summary ---
Author Organization [facility] Address [address] [place] [address] Phone Care Team Providers Care Planer Operator Name Role Phone Stevie Vera MD Primary Care Provider [phone] Encounter Details Date Type Department Care Team (Late st Contact Info) Description 12/26/2023 Procedure Pass [facility] Radiology [address] [place] [address] Social History Tobacco Use Types Packs/Day Years [...] st Contact Info) Description 12/24/2024 Procedure Pass [facility] Radiology 75 [place] [address] 02/18/2025 Procedure Pass [facility] Outpatient Care - MRI [address] [place] [address] 6[address] [place] [address] 02/24/2025 8:00 PM EDT Appointment [facility] [address] [facility], [address] [place] [address] Butch Hinojosa MD [address] [place] [address] [email or web address] 04/02/2025 1:40 PM EDT Office Visit [facility] Pain Management [address] [facility] 130 [place] [address] Butch Hinojosa MD [address] [place] [address] [email or web address] 07/08/2025 1:00 PM EDT Appointment [facility] Pulmonary Function Lab 15 [place] [address] Inga Vivas MD [address] [place] [address] [email or web address] 07/08/2025 2:00 PM EDT Appointment [facility] Radiology 75 [place] [address] Inga Vivas MD [address] [place] [address] [email or web address] 12/23/2025 11:00 AM EDT Office Visit [facility] Arthritis Center Main [place] 60 [place] [address] Jose Sellers MD 75 [place] [address] [email or web address] documented as of this encounter Visit Diagnoses Not on filedocumented in this encounter Additional Health Concerns Assessment Noted Time PHQ-2 Depression Total Score: 0 07/25/20 24 4:23 PM EDT documented as of this encounter Care Teams Planer Operator Relationship Specialty Start Date End Date Stevie Vera MD [address] [place] [address] PCP - General Internal Medicine 06/26/23 documented as of this encounter Additional Source Comments The information contained in this document represents components of the legal health record. It is not the complete legal health record.[facility]
--- OUTSIDE RECORDS SUMMARY | 2025-02-22 10:39 | XMS_ITS | Encounter Summary ---
Author Organization [facility] Address [address] [place] [address] Phone Care Team Providers Care Dusting And Brushing Machine Operator Name Role Phone Stevie Vera MD Primary Care Provider [phone] Encounter Details Date Type Department Care Team (Late st Contact Info) Description 07/18/2023 Procedure Pass [facility] Echocardiography [address] [place] [address] Social History Tobacco Use Types Packs/Day Years [...] Procedure Pass [facility] 75 [place] [address] 02/18/2025 Procedure Pass [facility] Outpatient Care - MRI [address] [facility], [address] [place] [address] 02/24/2025 8:00 PM EDT Appointment [facility] for Outpatient Care - MRI [address] [facility], [address] [place] [address] Butch Hinojosa MD [address] [place] [address] [email or web address] 04/02/2025 1:40 PM EDT Office Visit [facility] Pain Management [address] [facility] 130 [place] [address] Butch Hinojosa MD [address] [place] [address] [email or web address] 07/08/2025 1:00 PM EDT Appointment [facility] Pulmonary Function Lab 15 [place] [address] Inga Vivas MD [address] [place] [address] [email or web address] 07/08/2025 2:00 PM EDT Appointment [facility] Radiology 75 [place] [address] Inga Vivas MD [address] [place] [address] [email or web address] 12/23/2025 11:00 AM EDT Office Visit [facility] Ar[facility]ritis [facility] Main [place] 60 [place] [address] Jose Sellers MD 75 [place] [address] [email or web address] documented as of this encounter Visit Diagnoses Not on filedocumented in this encounter Additional Health Concerns Assessment Noted Time PHQ-2 Depression Total Score: 0 07/18/20 3:02 PM EDT documented as of this encounter Care Teams Dusting And Brushing Machine Operator Relationship Specialty Start Date End Date Stevie Vera MD [address] [place] [address] PCP - General Internal Medicine 06/26/23 documented as of this encounter Additional Source Comments The information contained in this document represents components of the legal health record. It is not the complete legal health record.[facility]
--- OUTSIDE RECORDS SUMMARY | 2025-02-22 10:39 | XMS_ITS | Encounter Summary ---
Author Organization [facility] Address [address] [place] [address] Phone Care Team Providers Care Steam Press Tender Name Role Phone Stevie Vera MD Primary Care Provider [phone] Encounter Details Date Type Department Care Team (Late st Contact Info) Description 06/05/2024 Procedure Pass [address] [place] [address] Social History Tobacco Use Types Packs/Day Years [...] 12/24/2024 Procedure Pass [facility] [address] [place] [address] 02/18/2025 Procedure Pass [facility] - MRI [address] [facility], [address]th [place] [address] 02/24/2025 8:00 PM EDT Appointment [facility] for Outpatient Care - MRI [address] [facility], [address] [place] [address] Butch Hinojosa MD [address] [place] [address] [email or web address] 04/02/2025 1:40 PM EDT Office Visit [facility] Pain Management [address] [facility] 130 [place] [address] Butch Hinojosa MD [address] [place] [address] [email or web address] 07/08/2025 1:00 PM EDT Appointment [facility] Pulmonary Function Lab 15 [place] [address] Inga Vivas MD [address] [place] [address] [email or web address] 07/08/2025 2:00 PM EDT Appointment [facility] 75 [place] [address] Inga Vivas MD 165 [place] [address] [email or web address] 12/23/2025 11:00 AM EDT Office Visit [facility] Ar[facility] Center [facility] 60 [place] [address] Jose Sellers MD 75 [place] [address] [email or web address] documented as of this encounter Visit Diagnoses Not on filedocumented in this encounter Additional Health Concerns Assessment Noted Time PHQ-2 Depression Total Score: 0 05/07/20 24 4:23 PM EDT documented as of this encounter Care Teams Steam Press Tender Relationship Specialty Start Date End Date Stevie Vera MD [address] [place] [address] PCP - General Internal Medicine 06/26/23 documented as of this encounter Additional Source Comments The information contained in this document represents components of the legal health record. It is not the complete legal health record.[facility]
--- OUTSIDE RECORDS SUMMARY | 2025-02-22 10:39 | XMS_ITS | Clinical Summary ---
Author Organization [facility] Address [address] [facility] [address] [place] [phone] Phone Care Team Providers Care Cost Recorder Name Role Phone Stevie Vera MD Primary Care Provider [phone] Allergies Active Allergy Reactions Criticality Noted Date Comments Codeine Nausea and/or Vomiting 02/07/2025 Hydrocodone-Acetaminophen Nausea and/or Vomiting 02/07/2025 Oxycodone-Acetaminophen Nausea and/or Vomiting 02/07/2025 Penicillin 02/07/2025 Medications mycophenolate mofetil (CELLCEPT) 500 mg tabletIndicatio ns:Interstitial lung disease due to connective tissue disease TAKE 3 TABLETS (1,500 MG TOTAL) BY MOUTH 2 (TWO) TIMES A DAY. 540 tablet 1 5 Active bempedoic acid (NEXLETOL) 180 mg tablet 180 mg daily. 0 Active predniSONE (DELTASONE) 20 MG tablet See Instructions, 3 tablets daily for 2 weeks then 2 tablets daily for 5 days then 1 tablet daily for 5 days then discontinue medication., # 57 tablet, 0 Refills, Maintenance, 01/17/25 11:37:00 AM EDT, [facility]/pharmacy #[id number], Partial fill upon patient request if the prescription is for a schedule II opioid drug., 167.64, cm, 05/11/24 9:45:00 EDT, Height 5 Active cholecalciferol (VITAMIN D3) 2,000 unit capsule 0 Active traMADoL (ULTRAM) 50 mg tablet 0 Refills, Maintenance, 09/20/22 10:52:00 EST, Partial fill upon patient request if the prescription is for a schedule II opioid drug. Active Active Problems Problem Noted Date Diagnosed Date At risk for falls 12/24/2024 Encounters Date Type Department Care Team Description 02/18/2025 1:00 PM EDT Office Visit [facility] Pain Management [address] [facility] [address] [place] [address] Butch Hinojosa MD Greater trochanteric bursitis of right hip (Primary Dx); Degeneration of intervertebral disc of lumbosacral region with discogenic back pain and lower extremity pain; Primary osteoarthritis of both hips; Lumbar spondylosis 02/18/2025 9:27 AM EDT - 02/18/2025 11:59 PM EDT Hospital Encounter [address] [place] [address] Chelsy Waddell PA-C Discharge Disposition: Home or Self Care 02/18/2025 9:25 AM EDT - 02/18/2025 9:26 AM EDT Hospital Encounter [address] [place] [address] Chelsy Waddell PA-C Discharge Disposition: Home or Self Care 02/18/2025 8:40 AM EDT Office Visit [address] [place] [address] Chelsy Waddell PA-C Right-sided low back pain without sciatica, unspecified chronicity (Primary Dx); Compression deformity of vertebra; Acute right-sided thoracic back pain 02/07/2025 9:52 AM EDT - 02/07/2025 11:59 PM EDT Hospital Encounter [address] [address] Tiki Sol CNP Discharge Disposition: Home or Self Care 02/07/2025 9:30 AM EDT Office Visit [address] [address] Tiki Sol CNP Rib pain (Primary Dx) 01/07/2025 9:00 AM EDT Office Visit [facility] Pain Management [address] [address] Butch Hinojosa MD Greater trochanteric bursitis of right hip (Primary Dx); Tendinopathy of right gluteal region; Other chronic pain; Degeneration of intervertebral disc of lumbosacral region with discogenic back pain and lower extremity pain; Lumbar radicular pain; Primary osteoarthritis of both hips 01/05/[address] [facility] Arthritis [facility] [address] [place] [address] Jose Sellers MD 12/29/[address] [facility] Pain Management [address] [address] Butch Hinojosa MD Other chronic pain (Primary Dx) 12/24/2024 3:30 PM EDT Office Visit [facility] [address] [place] [address] Inga Vivas MD Interstitial lung disease (Primary Dx) 12/24/2024 1:20 PM EDT - 12/24/2024 11:59 PM EDT Hospital Encounter [facility] Pulmonary Function Lab [address] [place] [address] Inga Vivas MD Discharge Disposition: Home or Self Care 12/24/2024 12:34 PM EDT - 12/24/2024 1:19 PM EDT Hospital Encounter [facility] Radiology [address] [place] [address] Inga Vivas MD Discharge Disposition: Home or Self Care 12/24/2024 12:10 PM EDT - 12/24/2024 12:33 PM EDT Hospital Encounter [facility] Phlebotomy [address] [facility] [address] [place] [address] Jose Sellers MD Discharge Disposition: Home or Self Care 12/24/2024 11:40 AM EDT Office Visit [facility] Arthritis [place] [facility] [address] [place] [address] Jose Sellers MD At risk for falls (Primary Dx); Vitamin D deficiency, unspecified; Antisynthetase syndrome 12/22/2024 3:16 PM EDT - 12/22/2024 11:59 PM EDT Hospital Encounter [facility] [address] [facility] [place] [address] Inga Vivas MD Discharge Disposition: Home or Self Care 12/11/2024 10:45 AM EST Office Visit [facility] Pain Management [address] [facility] [address] [place] [address] Butch Hinojosa MD Greater trochanteric bursitis of right hip (Primary Dx); Degeneration of intervertebral disc of lumbosacral region with discogenic back pain and lower extremity pain; Lumbar spondylosis; Lumbar radicular pain; Primary osteoarthritis of both hips; Tendinopathy of right gluteal region 05/07/2024 Procedure [facility] [address] [place] [address] from Last 3 Months Social History Tobacco [...] high school, GED, job training, learning the [place] language, technical skills, or developing parenting skills)? [...] Sign Reading Time Taken Comments Blood Pressure 122/76 02/18/2025 9:07 AM EDT Pulse 96 02/18/2025 9:07 AM EDT Temperature 36.1 ??C (97 ??F) 02/18/2025 9:07 AM EDT Respiratory Rate 16 02/18/2025 9:07 AM EDT Oxygen Saturation 98% 02/18/2025 9:07 AM EDT Inhaled Oxygen Concentration - - Weight 91.2 kg (201 lb) 02/07/2025 9:30 AM EDT Height 165.1 cm (5' 5 ) 02/07/2025 9:30 AM EDT Body Mass Index 33.45 02/07/2025 9:30 AM EDT Plan of Treatment Upcoming Encounters Date Type Department Care Team (Late st Contact Info) Description 12/24/2024 Procedure [facility] [address] [place] [address] 02/18/2025 Procedure Pass [facility] [address] [facility] 6th [place] [address] 02/24/2025 8:00 PM EDT Appointment [facility] MRI [address] [facility] 6th [place] [address] Butch Hinojosa MD [address] [place] [address] [email or web address] 04/02/2025 1:40 PM EDT Office Visit [facility] Pain Management [address] [facility] [address] [place] [address] Butch Hinojosa MD [address] [place] [address] [email or web address] 07/08/2025 1:[address] [facility] Pulmonary Function Lab [address] [place] [address] Inga Vivas MD [address] [place] [address] [email or web address] 07/08/2025 2:00 PM EDT Appointment [facility] [address] [place] [address] Inga Vivas MD [address] [place] [address] [email or web address] 12/23/2025 11:00 AM EDT Office Visit [facility] Arthritis Center [facility] [address] [place] [address] Jose Sellers MD [address] [place] [address] [email or web address] Health Maintenance Due Date Last Done Comments LIPID PANEL 1962 HIV ONE-TIME SCREENING (18-6 5 YEARS) 1980 PAP SMEAR 1983 MAMMOGRAM 2002 COLOGUARD 2007 COLONOSCOPY 2007 COLORECTAL CANCER SCREENING 2007 FIT TEST 2007 FOBT 2007 SIGMOIDOSCOPY 2007 VIRTUAL COLONOSCOPY 2007 COVID-19 VACCINE (2023-2 5 season) 2024 09/04/2022, 12/30/2020, 12/11/2020 DEPRESSION SCREENING 12/24/2025 12/24/2024 SCREENING FOR DIABETES 12/23/2027 12/22/2024 Adult Td,Tdap Booster 09/04/2032 09/04/2022 PNEUMOCOCCAL VACCINES (50+ years) Completed 10/04/2023 RSV VACCINE Completed 10/08/2023 HEPATITIS C SCREENING Completed 11/12/2023 ZOSTER VACCINES Completed 01/02/2024, 10/22/2023 SMOKING STATUS SCREENING (On ce After 26 Yrs) Completed 02/18/2025 HEPATITIS A VACCINES Aged Out No long er eligible based on patient's age to complete this topic HIB VACCINES Aged Out No longer eligi ble based on patient's age to complete this topic MENINGOCOCCAL VACCINES (ACWY) Aged Out No longer eligible based on patient's age to complete this topic MENINGOCOCCAL VACCINES (B) Aged Out N o longer eligible based on patient's age to complete this topic Medical Devices Not on file Procedures Procedure Name Priority Date/Time Associated Diagnosis Comments XR LUMBOSACRAL SPINE 2-3 VIEWS Urgent/patient waiting 02/18/2025 10:08 AM EDT Right-sided low back pain without sciatica, unspecified chronicity XR THORACIC SPINE 2 VIEW Urgent/patient waiting 02/18/2025 10:08 AM EDT Right-sided low back pain without sciatica, unspecified chronicity XR RIBS 3 OR MORE VIEWS WITH [...] Relevant to Health Maintenance Results * XR LUMBOSACRAL SPINE 2-3 VIEWS (02/18/2025 10:08 AM EDT) MGB IMG BED LABORER COMMENT Age indeterminate mild compression deformity of the superior endplate of L2, new since January 28, 2024. [facility] Anatomical Region Laterality Modality L-spine Computed Radiogr aphy 02/18/2025 10:3 0 AM [...] initiated on 02/18/2025 10:42 AM, Message ID [id number]. Narrative 02/18/2025 10:42 AM EDT XR THORACIC [...] was initiated on 02/18/2025 10:42 AM,Message ID [id number]. Chelsy Thierry Waddell PA-C IMG XR SPINE Final Result * XR THORACIC SPINE 2 VIEW (02/18/2025 10:08 AM EDT) MGB IMG BED LABORER COMMENT Age indeterminate mild compression deformity of the superior endplate of L2, new since January 28, 2024. [facility] Anatomical Region Laterality Modality T-spine Computed Radiogr [...] initiated on 02/18/2025 10:42 AM, Message ID [id number]. Narrative 02/18/2025 10:42 AM EDT XR THORACIC SPINE 2 VIEW, XR LUMBOSACRAL SPINE 2-3 VIEWS Referring clinician's provided indication for this examination in [facility]: Pain; pulled ribs on right side 2 [...] clinician's provided indication for this examination in [facility]:Pain; pulled ribs on right side 2 weeks [...] was initiated on 02/18/2025 10:42 AM,Message ID [id number]. Chelsy Waddell PA-C IMG XR SPINE Final Result * XR RIBS 3 OR MORE VIEWS WITH PA CHEST (RIGHT) (02/07/2025 10:09 AM EDT) Anatomical Region Laterality Modality Chest Computed Radiogr aphy 02/07/2025 10:2 9 AM EDT Impressions 02/07/2025 10:31 AM EDT No displaced rib fracture. Narrative 02/07/2025 10:31 AM EDT XR RIBS 3 OR MORE VIEWS WITH PA CHEST (RIGHT) Referring clinician's provided indication for this examination in [facility]: Pain; Multi pop in her ribs 3 [...] provided indication for this examination in Epic:Pain; Multi pop in her ribs 3 days ago. Previous fracture in the ribsseveral years ago. COMPARISON: XR CHEST OUTSIDE WITH INTERPRETATION OR CONSULT ;CT CHEST WITHOUT CONTRAST FINDINGS: No displaced rib fracture. PA evaluation of the chest demonstrates no focal consolidation, pleuraleffusion, pulmonary edema, or pneumothorax. Cardiomediastinal silhouetteis normal. Mild elevation of the right hemidiaphragm. IMPRESSION: No displaced rib fracture. Tiki Sol MAID SUPERVISOR IMG XR CHEST Final Result * FL Fluoroscopy (01/07/2025 8:51 AM EDT) Lionel PATEL - 01/07/2025 8:51 AM EDT Fluoroscopy was provided during this procedure. Butch Hinojosa MD IMG FL MISC Final Re sult [facility] * CT CHEST WITHOUT CONTRAST (12/24/2024 12:45 PM EDT) MGB IMG RECOMMENDATION COMMENT Groundglass opacity; adenocarcinoma ; Differential: spectrum lesions [facility] Anatomical Region Laterality Modality Chest Computed Tomogra [...] bronchi which is consistent with bronchomalacia. ATTESTATION: Nicolette Mena, as teaching physician have reviewed the images, [...] clinician's provided indication for this examination in [facility]: *Interstitial lung disease TECHNIQUE: Multidetector CT of [...] bronchi which is consistent with bronchomalacia. ATTESTATION: Nicolette Mena, as teaching physician have reviewed theimages, if any, for this patient's exam, and if necessary, have edited thereport originally created by Amber Miranda. Inga Vivas MD IMG CT CHEST Edited Result - Final * C-reactive protein, high sensitivity (12/24/2024 12:32 PM EDT) Pathologist [facility] CRP, HIGH SENSITIVITY 1.0 0.0 - 3.0 mg/L [facility] Comment: For cardiac risk assessment, reference range is <3.0mg/L. ??For inflammation assessment, reference range is <10.0mg/L. Blood 12/24/2024 12:3 2 PM EDT 12/24/2024 12:41 PM EDT Jose Sellers MD LAB BLOOD ORDERABLES Final R esult Performing Organization Address [facility] de Phone Number [facility] [address] [place] [address] * Iron and iron binding capacity (12/24/2024 12:32 PM EDT) Pathologist [facility] IRON 91 37 - 158 ug/dL [facility] Comment: IRON BINDING CAPACITY 294 220 - 460 ug/dL [facility] Comment: TRANSFERRIN SATURAT. 31 14 - 50 % [facility] Comment: Blood 12/24/2024 12:3 2 PM EDT 12/24/2024 12:41 PM EDT Jose Sellers MD LAB BLOOD ORDERABLES Final R esult Performing Organization Address [facility] de Phone Number [facility] [address] [place] [address] * Aldolase (12/24/2024 12:32 PM EDT) Pathologist [facility] ALDOLASE 2.8 <7.7 U/L [facility] MED AND PAT+ Comment: (NOTE) ADDITIONAL INFORMATION This test has been modified from the die stamping press operator's instructions. Its performance characteristics were determined by [facility] in a manner consistent with CLIA requirements. This test has not been cleared or approved by the U.S. Food and Drug Administration. Blood 12/24/2024 12:3 2 PM EDT 12/24/2024 12:41 PM EDT Jose Sellers MD LAB BLOOD ORDERABLES Final R esult [facility] DPT OF LAB MED AND PAT+ [address] [place] [address] * (ABNORMAL) 25-OH vitamin D (12/24/2024 12:32 PM EDT) 25 [place] VIT D (TOTAL) 54(H) 20 - 50 ng/mL [facility] Blood 12/24/2024 12:3 2 PM EDT 12/24/2024 12:41 PM EDT Jose Sellers MD LAB BLOOD ORDERABLES Final R esult Performing Organization Address City/[facility]/ZIP Co de Phone Number [facility] [address] [place] [phone] * TSH (12/24/2024 12:32 PM EDT) Pathologist [facility] TSH 1.42 0.50 - 5.70 uIU/mL [facility] Blood 12/24/2024 12:3 2 PM EDT 12/24/2024 12:41 PM EDT Jose Sellers MD LAB BLOOD ORDERABLES Final R esult Performing Organization Address City/[facility]/ZIP Co de Phone Number [facility] [address] [place] [phone] * Vitamin B12 (12/24/2024 12:32 PM EDT) VITAMIN B12 357 232 - 1,245 pg/mL [facility] Comment: Blood 12/24/2024 12:3 2 PM EDT 12/24/2024 12:41 PM EDT Jose Sellers MD LAB BLOOD ORDERABLES Final R esult Performing Organization Address City/[facility]/ZIP Co de Phone Number [facility] [address] [place] [address] * CPK (creatine kinase) (12/24/2024 12:32 PM EDT) CREATINE KINASE 38 26 - 192 U/L [facility] Blood 12/24/2024 12:3 2 PM EDT 12/24/2024 12:41 PM EDT Jose Sellers MD LAB BLOOD ORDERABLES Final R esult Performing Organization Address [facility] de Phone Number [facility] [address] [place] [phone] * Pulmonary Function Test Reason for Exam: Dyspnea/Shortness of Breath; Type of PFT Test: Spirometry with bronchodilator, DLCO, Lung Volumes; Performing Location: [facility]; Please specify: [facility] (12/24/2024 12:00 AM EDT) Anatomical Region Laterality Modality Other 12/24/2024 Narrative 12/24/2024 12:00 AM EDT Finance Professional Notes: Two Patient Identifiers (Name, ) used to identify patient. Good patient effort throughout PFT testing. Data are acceptable and reproducible according to ATS guidelines. Recent hgb applied to DLCO Physician Interpretation: Normal spirometry and lung volumes. Diffusing capacity is within normal limits. Compared to PFTs from 05/07/24 there has been no significant change. Inga Vivas MD PFT ORDERABLES Final Result * Comprehensive metabolic panel (12/22/2024 3:16 PM EDT) SODIUM 142 133 - 146 mmol/L [facility] POTASSIUM 4.2 3.3 - 5.1 mmol/L [facility] CHLORIDE 105 96 - 108 mmol/L [facility] CO2 26 21 - 35 mmol/L [facility] BUN 16 6 - 19 mg/dL [facility] CREATININE 0.70 0.5 - 1.5 mg/dL [facility] GLUCOSE 91 70 - 99 mg/dL [facility] ALBUMIN 4.5 3.9 - 4.8 g/dL [facility] TOTAL PROTEIN 7.4 6.5 - 8.0 g/dL [facility] CALCIUM 10.0 8.4 - 10.3 mg/dL [facility] ALKALINE PHOSPHATASE 54 39 - 117 U/L [facility] TOTAL BILIRUBIN 0.3 0.0 - 1.2 mg/dL [facility] AST 19 0 - 37 U/L [facility] ALT 16 0 - 40 U/L [facility] GLOBULIN 2.9 1 - 4.8 g/dL [facility] EGFR 98 >59 mL/min/1.7 3m2 [facility] Comment:Estimated glomerular filtration rate calculated using the CKD-EPI refit equation. ANION GAP 15 10 - 20 mmol/L [facility] Blood 12/22/2024 3:16 PM EDT 12/22/2024 3:19 PM EDT us Inga Vivas MD LAB BLOOD ORDERABLES Final Res ult [facility] [address] [place], [place] [id number] * (ABNORMAL) CBC and differential (12/22/2024 3:16 PM EDT) WBC 5.13 4.00 - 11.00 K/uL [facility] RBC 3.91(L) 4.00 - 5.20 M/uL [facility] HGB 11.5(L) 12.0 - 16.0 g/dL [facility] HCT 35.6(L) 36.0 - 46.0 % [facility] PLT 330 150 - 450 K/uL [facility] MCV 91.0 80.0 - 100.0 fL [facility] MCH 29.4 27.0 - 31.0 pg [facility] MCHC 32.3 32.0 - 36.0 g/dL [facility] RDW 12.5 11.5 - 14.5 % [facility] MPV 10.2 8.4 - 12.0 fL [facility] NRBC 0.00 0.00 /100 WBCs [facility] ABSOLUTE NRBC 0.00 0.00 K/uL [facility] DIFF METHOD Auto [facility] NEUTS 54.1 48.0 - 76.0 % [facility] LYMPHS 35.9 18.0 - 41.0 % [facility] MONOS 7.6 4.0 - 11.0 % [facility] EOS 1.6 0.0 - 5.0 % [facility] BASOS 0.6 0.0 - 1.5 % [facility] Granulocytes, immature (%) 0.2 0.0 - 0.9 % [facility] ABSOLUTE NEUTS 2.78 1.92 - 7.60 K/uL [facility] ABSOLUTE LYMPHS 1.84 0.72 - 4.10 K/uL [facility] ABSOLUTE MONOS 0.39 0.16 - 1.10 K/uL [facility] ABSOLUTE EOS 0.08 0.00 - 0.50 K/uL [facility] ABSOLUTE BASOS 0.03 0.00 - 0.15 K/uL [facility] Granulocytes, immature 0.01 0.00 - 0.09 K/uL [facility] Blood 12/22/2024 3:16 PM EDT 12/22/2024 3:19 PM EDT Inga Vivas MD LAB BLOOD ORDERABLES Final Res ult [address] [phone] * Hepatitis C antibody, qualitative (11/12/2023 9:30 AM EST) HCV Nonreactive Nonreactive [facility] Comment: 11/12/2023 9:30 AM EST 11/12/2023 9:54 AM EST Jose Sellers MD LAB BLOOD ORDERABLES Final R esult [facility] [address] [place] [phone] from Last 3 Months or Most Recently Relevant to Health Maintenance Insurance PPO EPO PPO EPO PPO EPO PPO EPO PPO EPO [facility] PPO EPO Care Teams Cost Recorder Relationship Specialty Start Date End Date Stevie Vera MD [address] [place] [phone] PCP - General Internal Medicine 06/26/23 Additional Source Comments The information contained in this document represents components of the legal health record. It is not the complete legal health record.[facility]
--- OUTSIDE RECORDS SUMMARY | 2025-02-22 10:39 | XMS_ITS | Encounter Summary ---
Author Organization [facility] Address [address] [facility] [address] [place] [address] Phone Care Team Providers Care Filler In Name Role Phone Stevie Vera MD Primary Care Provider [phone] Encounter Details Date Type Department Care Team (Late st Contact Info) Description 02/18/2025 9:27 AM EDT - 02/18/2025 11:59 PM EDT Hospital Encounter [facility], X-Ray - [address] [place] [address] Chelsy Waddell, PA-C [address] [facility], [address] [place] [address] [email or web address] Discharge Disposition: Home or Self Care Social [...] high school, GED, job training, learning the Kosovan language, technical skills, or developing parenting skills)? [...] 0 Refills, Maintenance, 01/17/25 11:37:00 AM EDT, [facility]/pharmacy #[id number], Partial fill upon patient request [...] st Contact Info) Description 12/24/2024 Procedure Pass [facility] Radiology [address] [place] [address] 02/18/2025 Procedure Pass [facility] for Outpatient Care - MRI [address] [place] [address] 02/24/2025 8:00 PM EDT Appointment [facility] Outpatient Care - MRI [address] [place] [address] Butch Hinojosa MD [address] [place] [address] 04/02/2025 1:40 PM EDT Office Visit [facility] Pain Management [address] [place] [address] [address] [place] [address] Butch Hinojosa MD [address] [place] [address] 07/08/2025 1:00 PM EDT Appointment [facility] Pulmonary Function Lab 15 [place] [address] Inga Vivas MD [address] [place] [address] [email or web address] 07/08/2025 2:00 PM EDT Appointment [facility] Radiology [address] [place] [address] Inga Vivas MD 165 [place] [address] [email or web address] 12/23/2025 11:00 AM EDT Office Visit [facility] Ar[facility]ritis Center Main [place] [address] [place] [address] Jose Sellers MD 75 [place] [address] [email or web address] documented as of this encounter Procedures Procedure Name Priority Date/Time Associated Diagnosis Comments XR LUMBOSACRAL SPINE 2-3 VIEWS Urgent/patient waiting 02/18/2025 10:08 AM EDT Right-sided low back pain without sciatica, unspecified chronicity documented in this encounter Results * XR LUMBOSACRAL SPINE 2-3 VIEWS (02/18/2025 10:08 AM EDT) MGB IMG SENIOR FIELD SERVICE ENGINEER COMMENT Age indeterminate mild compression deformity of the superior endplate of L2, new since January 28, 2024. [facility] Anatomical Region Laterality Modality L-spine [...] initiated on 02/18/2025 10:42 AM, Message ID [id number]. Narrative 02/18/2025 10:42 AM EDT XR THORACIC [...] was initiated on 02/18/2025 10:42 AM,Message ID [id number]. Chelsy Waddell PA-C [facility] XR SPINE Final Result documented in this encounter Visit Diagnoses Not on filedocumented in this encounter Additional Health Concerns Assessment Noted Time PHQ-2 Depression Total Score: 0 12/25/19 25 3:01 PM EDT documented as of this encounter Care Teams Filler In Relationship Specialty Start Date End Date Stevie Vera MD [address] [place] [address] PCP - General Internal Medicine 06/26/23 documented as of this encounter Additional Source Comments The information contained in this document represents components of the legal health record. It is not the complete legal health record.[facility]
--- OUTSIDE RECORDS SUMMARY | 2025-02-22 10:39 | XMS_ITS | Encounter Summary ---
Author Organization [facility] Address [address] [facility] [address] [place] [address] Phone Care Team Providers Care Quality Assurance Tester Name Role Phone Stevie Vera MD Primary Care Provider [phone] Reason for Visit * Reason Comments Back Pain Pt presents with jeane k pain , Encounter Details Date Type Department Care Team (Late st Contact Info) Description 02/18/2025 8:40 AM EDT Office Visit [facility] [address] [place] [address] Chelsy Waddell, PAKamarC [address] [facility], [address] [place] [address] [email or web address] Right-sided low back pain without sciatica, unspecified chronicity (Primary Dx); Compression deformity of vertebra; Acute right-sided thoracic back pain Social History Tobacco Use Types Packs/Day Years [...] high school, GED, job training, learning the [place] language, technical skills, or developing parenting skills)? [...] EDT Inhaled Oxygen Concentration - - Weight - - Height - - Body Mass Index - - documented in this encounter Progress Notes * Chelsy Waddell PA-C - 02/18/2025 8:40 AM EDT Images from the original note were not included. Subjective: Patient ID: Tricia Bocanegra is a 64 y.o. female. HPI The patient is a 64-year-old who presents today with back pain. The patient states that she injuredher right rib area a couple of weeks ago. She has had chronic ongoing trouble with her back but since this rib injury has noticed an increase in back discomfort. She is having pain across her lower back and it is worse to the right of the spine. She is having some pain in the mid right upper back as well. No specific injuries. She is seeing a specialist in [place] today and would like to have x-rays done before she gets there. No numbness or tingling at this time. No urinary or bowel incontinence. No saddle paresthesias. Review of Systems Constitutional: Negative for chills and fever. All other systems reviewed and are negative. Musculoskeletal: Positive for back pain. Vitals: 02/18/25 0907 BP: 122/76 BP Location: Left arm Patient Position: Sitting Cuff Size: Large Pulse: 96 Resp: 16 Temp: 36.1 ??C (97 ??F) SpO2: 98% Objective: Physical Exam Vitals and nursing note reviewed. Constitutional: Appearance: Normal appearance. HENT: Head: Normocephalic and atraumatic. Right Ear: External ear normal. Left Ear: External ear normal. Eyes: Extraocular Movements: Extraocular movements intact. Pupils: Pupils are equal, round, and reactive to light. Pulmonary: Effort: Pulmonary effort is normal. No respiratory distress. Musculoskeletal: Cervical back: Normal range of motion. Comments: No point tenderness to palpation over the thoracic spine. No point tenderness to palpation over the lumbar spine. Some tenderness to palpation across the lower back near the belt line worseon the right side. Range of motion is limited with bending [id number]. Patient is able to touch her toes but then has trouble standing upright. Straight leg raise is negative bilaterally. Sensationis intact in both lower legs. Skin: General: Skin is warm and dry. Neurological: General: No focal deficit present. Mental Status: She is alert and oriented to person, place, and time. Psychiatric: Mood and Affect: Mood normal. Behavior: Behavior normal. Thought Content: Thought content normal. Judgment: Judgment normal. Results for orders placed or performed in visit on 02/18/25 XR Thoracic Spine Result Value Ref Range MGB IMG FOOT TENDER COMMENT Age indeterminate mild compression deformity of the superior endplate of L2, new since January 28, 2024. XR Lumbar Spine Result Value Ref Range MGB IMG FOOT TENDER COMMENT Age indeterminate mild compression deformity of the superior endplate of L2, new since January 28, 2024. Procedure: Procedures Assessment/Plan: Diagnosis Plan 1. Right-sided low back pain without sciatica, unspecified chronicity XR Thoracic Spine XR Lumbar Spine CANCELED: XR Lumbar Spine 2. Compression deformity of vertebra 3. Acute right-sided thoracic back pain MDM Patient seen and examined for low and mid back pain. Patient had a rib injury a couple weeks ago. The back pain has increased since the rib injury. There was no fall. On x-ray of the lumbar spine there was a mild compression deformity of the superior endplate of L2 which is age-indeterminate. It does appear new when compared to an x-ray from January 2024. Patient is being evaluated by a pain medicine specialist today in [place]. Patient advised to discuss further with them. Patient was already prescribed Flexeril by her supervisor of operations. No current findings concerning for cauda equina. * Gutierrez Espino MD - 02/18/2025 8:40 AM EDT Subject Line: Provider Attestation I have reviewed the notes, assessments, and/or procedures performed by Chelsy Waddell PA-C, I concur with her/his documentation of Tricia Bocanegra. documented in this encounter Plan of Treatment Upcoming Encounters Date Type Department Care Team (Late st Contact Info) Description 12/24/2024 Procedure Pass [facility] [address] [place], [place] 02/18/2025 Procedure Pass [facility] for Outpatient Care - MRI [address] [place] [address], [address] [place] [address] 02/24/2025 8:00 PM EDT Appointment [facility] for Outpatient Care - MRI [address] [place] [address], [address] [place] [address] Butch Hinojosa MD [address] [place] [address] [email or web address] 04/02/2025 1:40 PM EDT Office Visit [facility] Pain Management [address] [facility] [address] [place] [address] Butch Hinojosa MD [address] [place] [address] [email or web address] 07/08/2025 1:00 PM EDT Appointment [facility] Pulmonary Function Lab 15 [place] [address] Inga Vivas MD [address] [place] [address] [email or web address] 07/08/2025 2:00 PM EDT Appointment [facility] [address] [place] [address] Inga Vivas MD [address] [place] [address] [email or web address] 12/23/2025 11:00 AM EDT Office Visit [facility] Arthritis Center Main [place] [address] [place] [address] Jose Sellers MD 75 [place] [address] [email or web address] documented as of this encounter Procedures [...] VIEWS (02/18/2025 10:08 AM EDT) MGB IMG FOOT TENDER COMMENT Age indeterminate mild compression deformity of the superior endplate of L2, new since January 28, 2024. [facility] Anatomical Region Laterality Modality L-spine Computed Radiogr [...] initiated on 02/18/2025 10:42 AM, Message ID [id number]. Narrative 02/18/2025 10:42 AM EDT XR THORACIC SPINE 2 VIEW, XR LUMBOSACRAL SPINE 2-3 VIEWS Referring clinician's provided indication for this examination in [facility]: Pain; pulled ribs on right side 2 [...] clinician's provided indication for this examination in [facility]:Pain; pulled ribs on right side 2 weeks [...] was initiated on 02/18/2025 10:42 AM,Message ID [id number]. Chelsy Waddell PA-C IMG XR SPINE Final Result * XR THORACIC SPINE 2 VIEW (02/18/2025 10:08 AM EDT) MGB IMG FOOT TENDER COMMENT Age indeterminate mild compression deformity of the superior endplate of L2, new since January 28, 2024. [facility] Anatomical Region Laterality Modality T-spine Computed Radiogr [...] initiated on 02/18/2025 10:42 AM, Message ID [id number]. Narrative 02/18/2025 10:42 AM EDT XR THORACIC [...] was initiated on 02/18/2025 10:42 AM,Message ID [id number]. Chelsy Waddell PA-C IMG XR SPINE Final Result documented in this encounter Visit Diagnoses Diagnosis Right-sided low back pain without sciatica, unspecified chronicity- Primary Compression deformity of vertebra Acute right-sided thoracic back pain documented in this encounter Additional Health Concerns Assessment Noted Time PHQ-2 Depression Total Score: 0 12/25/19 25 3:01 PM EDT documented as of this encounter Care Teams Quality Assurance Tester Relationship Specialty Start Date End Date Stevie Vera MD [address] [place] [address] PCP - General Internal Medicine 06/26/23 documented as of this encounter Additional Source Comments The information contained in this document represents components of the legal health record. It is not the complete legal health record.[facility]
--- OUTSIDE RECORDS SUMMARY | 2025-02-22 10:39 | XMS_ITS | Encounter Summary ---
Author Organization [facility] Address [address] [place] [address] Phone Care Team Providers Care Endless Bed Drum Sander Name Role Phone Stevie Vera MD Primary Care Provider [phone] Encounter Details Date Type Department Care Team (Late st Contact Info) Description 05/07/2024 Procedure Pass [facility] Radiology [address] [place] [address] Social History Tobacco Use Types Packs/Day Years [...] st Contact Info) Description 12/24/2024 Procedure Pass [facility] Radiology [address] [place] [address] 02/18/2025 Procedure Pass [facility] - MRI [address] [place] [address], [address] [place] [address] 02/24/2025 8:00 PM EDT Appointment [facility] for Outpatient Care - MRI [address] [facility], [address] [place] [address] Butch Hinojosa MD [address] [place] [address] [email or web address] 04/02/2025 1:40 PM EDT Office Visit [facility] Pain Management [address] [place] [address] Butch Hinojosa MD [address] [place] [address] [email or web address] 07/08/2025 1:00 PM EDT Appointment [facility] Pulmonary Function Lab 15 [place] [address] Inga Vivas MD [address] [place] [address] [email or web address] 07/08/2025 2:00 PM EDT Appointment [facility] Radiology 75 [place] [address] Inga Vivas MD 165 [place] [address] [email or web address] 12/23/2025 11:00 AM EDT Office Visit [facility] Arthritis Center Main [place] 60 [place] [address] Jose Sellers MD 75 [place] [address] [email or web address] documented as of this encounter Visit Diagnoses Not on filedocumented in this encounter Additional Health Concerns Assessment Noted Time PHQ-2 Depression Total Score: 0 12/25/19 25 3:01 PM EDT documented as of this encounter Care Teams Endless Bed Drum Sander Relationship Specialty Start Date End Date Stevie Vera MD [address] [place] [address] PCP - General Internal Medicine 06/26/23 documented as of this encounter Additional Source Comments The information contained in this document represents components of the legal health record. It is not the complete legal health record.[facility]
--- OUTSIDE RECORDS SUMMARY | 2025-02-22 10:39 | XMS_ITS | Encounter Summary ---
Author Organization [facility] Address [address] [facility] [address] [place] [address] Phone Care Team Providers Care Chain Maker Name Role Phone Stevie Vera MD Primary Care Provider [phone] Reason for Referral * Outpatient Procedure - New Request Specialty Diagnoses / Procedures Referred By Contac t Referred To Contact Diagnoses Greater trochanteric bursitis of right hip Procedures Bursa / joint - fluoro - 30 Candelaria Frausto MD [address] [place] [address] Department of Anesthesiology-[address] [address] Phone: tel: fax: mailto:[email or web address] Referral ID Status Reason Start Date Expiration Date V isits Requested Visits Authorized [id number] New Request 02/18/2025 1 1 * MRI/CAT Scan - New Request Specialty Diagnoses / Procedures Referred By Contac t Referred To Contact Radiology Diagnoses Lumbar spondylosis Procedures MRI Lumbar Spine Butch Hinojosa MD [address] [place] [address] Phone: tel: fax: mailto:[email or web address] Referral ID Status Reason Start Date Expiration Date V isits Requested Visits Authorized [id number] New Request 02/18/2025 1 1 Reason for Visit * Reason Comments Follow-up Back Pain Encounter Details Date Type Department Care Team ([facility] st Contact Info) Description 02/18/2025 1:00 PM EDT Office Visit [facility] Pain Management [address] [facility] [address] [place] [address] Butch Hinojosa MD [address] [place] [address] [email or web address] Greater trochanteric bursitis of right hip (Primary Dx); Degeneration of intervertebral disc of lumbosacral region with discogenic back pain and lower extremity pain; Primary osteoarthritis of both hips; Lumbar spondylosis Social History Tobacco Use Types Packs/Day Years [...] high school, GED, job training, learning the [place]uneian language, technical skills, or developing parenting skills)? [...] as of this encounter Progress Notes * Butch Hinojosa MD - 02/18/2025 1:00 PM EDT This office note has been dictated. * Butch Hinojosa MD - 02/18/2025 12:57 PM EDT DATE OF SERVICE: 02/18/2025 Please note that I saw this patient with Dr. Frausto, and that I concur fully with evaluation, assessment, examination and plan. CHIEF COMPLAINT: Recurrence of right hip pain. PROBLEM LIST: 1. Right hip trochanteric bursitis symptoms. 2. Right hip sclerosis with subchondral cystic change and marginal osteophytes, as well as acetabular hypertrophy. 3. Left hip pain with subchondral sclerosis, subchondral cystic change and osteophytes with acetabular hypertrophy. 4. L5-S1 disk bulge with facet arthropathy and neural foraminal narrowing. 5. L4-L5 disk bulge with facet arthropathy, mild stenosis and right neural foraminal narrowing withleft neural foraminal narrowing. 6. L3-L4 disk bulge with facet hypertrophy and mild bilateral neural foraminal narrowing. 7. History of right-sided lumbar radicular symptoms, not subsided. 8. History of ILD. 9. History of antisynthetase syndrome. 10. Hyperlipidemia. 11. History of L2 mild compression deformity. INTERVAL HISTORY: Ms. Bocanegra is a 64-year-old woman who presents with a history of right hip pain.She also has a history of low back pain and right lower extremity painful symptoms in the past. She had a lumbar epidural steroid injection with uncertain benefit, but is no longer having the severeradicular symptoms. She had right hip trochanteric bursa injections that have given her benefit. InDecember, she underwent right hip intraarticular injection. X-ray of the hip showed subchondral sclerosis, subchondral cystic change, osteophytes, and acetabular hypertrophy bilaterally with greater trochanteric enthesopathy. An MRI of the lumbar spine showed evidence of lumbar degenerative disk disease with disk bulge, facet hypertrophy and varying degrees of neural foraminal stenosis. She had some benefit following intraarticular right hip joint injection in September with improved functional mobility. I gave her a right hip trochanteric bursa injection in December. She felt significant benefit following the right hip trochanteric bursa injection and this benefit was more than the prior injections in her hip joint. Since that time, she has developed some right-sided rib pain afterdoing some stretches. She felt a popping sensation. An x-ray did not show a displaced rib fracture.She subsequently had an x-ray of the lumbar spine that did show L2 compression fracture that was fairly mild. She presents today for consideration of further management. The remainder of the history and physical is as per Dr. Frausto's note. ASSESSMENT AND PLAN: 1. Right hip pain in the setting of right hip trochanteric bursitis and right hip osteoarthritis. 2. Ms. Bocanegra will schedule a repeat right hip trochanteric bursa injection, most likely towards the end of March prior to an upcoming trip to [place]. 3. She will follow up with her primary care doctor to undergo bone density evaluation and to undergo possible endocrinology consult for management of low bone density. 4. Regarding her rib pain, she is scheduled to undergo a CT scan of the chest, but this may be accelerated if the rib pain is continuing. 5. I will see her again for the right hip trochanteric bursa injection, most likely towards the endomarch. documented in this encounter Plan of Treatment Upcoming Encounters Date Type Department Care Team (Late st Contact Info) Description 12/24/2024 Procedure Pass [facility] 75 [place] [address] 02/18/2025 Procedure Pass [facility] for Outpatient Care - MRI [address] [facility], [address] [place] [address] 02/24/2025 8:00 PM EDT Appointment [facility] for Outpatient Care - MRI [address] [facility], [address] [place] [address] uBtch Hinojosa MD [address] [place] [address] [email or web address] 04/02/2025 1:40 PM EDT Office Visit [facility] Pain Management [address] [address] Butch Hinojosa MD [address] [place] [address] [email or web address] 07/08/2025 1:[address] [facility] Pulmonary Function Lab 15 [place] [address] Inga Vivas MD 165 [place] [address] [email or web address] 07/08/2025 2:00 PM EDT Appointment [facility] Radiology 75 [place] [address] Inga Vivas MD 165 [place] [address] [email or web address] 12/23/2025 11:00 AM EDT Office Visit [facility] Arthritis Center [facility] 60 [place] [address] Jose Sellers MD 75 [place] [address] [email or web address] Scheduled Orders Name Type Priority Associated Diagnoses Orde r Schedule MRI Lumbar Spine Imaging Routine Lumbar spondylosis Expected: 02/18/2025, Expires: 02/18/2026 Bursa / joint - fluoro - 30 Procedures Routine Greater trochanteric bursitis of right hip Expected: 03/04/2025, Expires: 02/18/2026 documented as of this encounter Visit Diagnoses Diagnosis Greater trochanteric bursitis of right hip- Primary Degeneration of intervertebral disc of lumbosacral region with discogenic back pain and lower extremity pain Primary osteoarthritis of both hips Lumbar spondylosis Lumbosacral spondylosis without myelopathy documented in this encounter Additional Health Concerns Assessment Noted Time PHQ-2 Depression Total Score: 0 12/25/19 25 3:01 PM EDT documented as of this encounter Care Teams Chain Maker Relationship Specialty Start Date End Date Stevie Vera MD [address] [place] [address] PCP - General Internal Medicine 06/26/23 documented as of this encounter Additional Source Comments The information contained in this document represents components of the legal health record. It is not the complete legal health record.[facility]
--- OUTSIDE RECORDS SUMMARY | 2025-02-22 10:40 | XMS_ITS | Encounter Summary ---
Author Organization [facility] Address [address] [place] [address] Phone Care Team Providers Care Manager Strategy Name Role Phone Stevie Vera MD Primary Care Provider [phone] Encounter Details Date Type Department Care Team (Late st Contact Info) Description 09/19/2023 Procedure Pass [facility] Radiology [address] [place] [address] Social History Tobacco Use Types Packs/Day Years [...] st Contact Info) Description 12/24/[address] [facility] Radiology [address] [place] [address] 02/18/2025 Procedure Pass [facility] Outpatient Care - MRI [address] [place] [address] [address] [place] [address] 02/24/2025 8:00 PM EDT Appointment [facility] - MRI [address] [facility], [address] [place] [address] Butch Hinojosa MD [address] [place] [phone] [email or web address] 04/02/2025 1:40 PM EDT Office Visit [facility] Pain Management [address] [facility] [address] [place] [address] Butch Hinojosa MD [address] [place] [phone] [email or web address] 07/08/2025 1:00 PM EDT Appointment [facility] Pulmonary Function Lab 15 [place] [address] Inga Vivas MD [address] [place] [phone] [email or web address] 07/08/2025 2:[address] [facility] Radiology 75 [place] [address] Inga Vivas MD [address] [place] [phone] [email or web address] 12/23/2025 11:00 AM EDT Office Visit [facility] Arthritis Center Main [place] [address] [place] [address] Jose Sellers MD [address] [place] [address] [email or web address] documented as of this encounter Visit Diagnoses Not on filedocumented in this encounter Additional Health Concerns Assessment Noted Time PHQ-2 Depression Total Score: 0 01/30/20 24 7:58 AM EST documented as of this encounter Care Teams Manager Strategy Relationship Specialty Start Date End Date Stevie Vera MD [address] [place] [phone] PCP - General Internal Medicine 06/26/23 documented as of this encounter Additional Source Comments The information contained in this document represents components of the legal health record. It is not the complete legal health record.[facility]
--- OUTSIDE RECORDS SUMMARY | 2025-02-22 10:40 | XMS_ITS | Encounter Summary ---
Author Organization [facility] Address [address] [place] [address] Phone Care Team Providers Care Fire Engineer Name Role Phone Stevie Vera MD Primary Care Provider [phone] Reason for Visit * Reason Onset Date Comments ACTIVE SYMPTOMS 01/21/2024 Dellaripa Encounter Details Date Type Department Care Team (Late st Contact Info) Description 01/21/2024 Telephone [facility] Arthritis Center Main [place] [address] [place] [address] Jaqui Ghotra, RN [address] [place] [address] [email or web address] ACTIVE SYMPTOMS (Dellaripa) Social History Tobacco [...] AM EDT Patient Symptom Call: RE: Tricia Bocanegra What is the symptom? Rt leg pain [...] st Contact Info) Description 12/24/2024 Procedure Pass [facility] Radiology 75 [place] [address] 02/18/2025 Procedure Pass [facility] for [facility]patient Care - MRI [address] [facility], [address] [place] [address] 02/24/2025 8:00 PM EDT Appointment [facility] - MRI [address] [facility], [address] [place] [address] Butch Hinojosa MD [address] [place] [phone] [email or web address] 04/02/2025 1:40 PM EDT Office Visit [facility] Pain Management [address] [place] [address] Butch Hinojosa MD [address] [place] [phone] [email or web address] 07/08/2025 1:00 PM EDT Appointment [facility] Pulmonary Function Lab 15 [place] [address] Inga Vivas MD [address] [place] [phone] [email or web address] 07/08/2025 2:00 PM EDT Appointment [facility] [address] [place] [address] Inga Vivas MD [address] [place] [address] [email or web address] 12/23/2025 11:00 AM EDT Office Visit [facility] Arthritis Center [facility] [address] [place] [address] Jose Sellers MD [address] [place] [phone] [email or web address] documented as of this encounter Visit Diagnoses Diagnosis Myositis- Primary Unspecified myalgia and myositis documented in this encounter Additional Health Concerns Assessment Noted Time PHQ-2 Depression Total Score: 0 12/26/19 24 4:31 PM EDT documented as of this encounter Care Teams Fire Engineer Relationship Specialty Start Date End Date Stevie Vera MD [address] [place] [phone] PCP - General Internal Medicine 06/26/23 documented as of this encounter Additional Source Comments The information contained in this document represents components of the legal health record. It is not the complete legal health record.[facility]
== END 2025-02-22 11:04 | disposition home or self-care (01) ==
LOC: HO.HPS 10:11
PROVIDERS: PCP Internal Medicine; Visit Provider Hospitalist
DX: J45.40 Moderate persistent asthma, uncomplicated (principal); T78.40XD Allergy, unspecified, subsequent encounter; J84.9 Interstitial pulmonary disease, unspecified; J98.09 Other diseases of bronchus, not elsewhere classified; D89.89 Other specified disorders involving the immune mechanism, not elsewhere classified; R06.09 Other forms of dyspnea; J84.10 Pulmonary fibrosis, unspecified; R21 Rash and other nonspecific skin eruption; R07.89 Other chest pain
CPT/HCPCS: 99214

== ENCOUNTER 2025-02-22 10:10 | Outpatient (REF) | payer BC, SELFPAY ==
[2025-02-22 11:31] LABS: MANUAL DIFF FLAG NO
[2025-02-22 11:45] LABS: Basophils Percent Auto 0.9 % (0-2); Eosinophils Absolute Auto 0.1 X10*3/uL (0.0-0.4); Eosinophils Percent Auto 2.9 % (0-4); Hematocrit 34.6 % (37.0-47.0); Hemoglobin 11.3 g/dl (12.0-16.0); Imm Gran Abs Auto 0.01 X10*3/uL (0.00-0.03); Imm Gran Pct Auto 0.2 % (0.0-0.4); Lymphocytes Absolute Auto 1.2 X10*3/uL (1.2-4.9); Lymphocytes Percent Auto 26.5 % (20-40); Mean Corpuscular HGB Conc 32.7 g/dl (31.0-35.0); Mean Corpuscular Volume 91.8 fL (80.0-98.0); Mean Platelet Volume 9.7 fL (9.4-12.3); Monocytes Absolute Auto 0.3 X10*3/uL (0.1-1.2); Neutrophils Absolute Auto 2.9 x10*3/uL (2.0-8.3); Neutrophils Percent Auto 63.5 % (45-73); Platelet Count 337 X10*3/uL (160-400); Red Blood Count 3.77 X10*6/uL (4.20-5.50); Red Cell Distribution Width 12.8 % (11.0-16.0); White Blood Count 4.5 X10*3/uL (4.8-10.8)
[2025-02-22 12:19] LABS: Anion Gap 11 (12-20); Blood Urea Nitrogen 14 mg/dL (9-16); Calcium 9.6 mg/dL (8.4-10.2); Carbon Dioxide 27 mmol/L (22-29); Chloride 105 mmol/L (96-108); Estimated Glomerular Filt Rate > 60; Glucose Random 92 mg/dL (60-115); Sodium 139 mmol/L (135-145)
[2025-02-22 12:25] LABS: Erythrocyte Sedimentation Rate 43 MM/HR (0-20)
[2025-02-23 19:09] LABS: Class Alternaria alternata 2; Class Aspergillus fumigatus 0; Class Bermuda Grass 1; Class Birch 2; Class Cat Dander 1; Class Cladosporium herbarum 0; Class Cockroach 0; Class Common Ragweed 3; Class Cottonwood 0/1; Class Derm. pterony 0; Class Dermatophagoides farinae 0; Class Dog Dander 1; Class Elm 0/1; Class Maple Box Elder 1; Class Mountain Cedar 0; Class Mouse Urine Protein 0; Class Mugwort 0/1; Class Oak 1; Class Penicillium crysogenum 0; Class Rough Pigweed 0/1; Class Sheep Sorrel 0/1; Class Sycamore 0/1; Class Timothy Grass 2; Class Walnut Tree 0/1; Class White Ash 0/1; Class White Mulberry 0; D001 IgE D pteronyssinus <0.10 kU/L; D002 - IgE D farinae <0.10 kU/L; E001 - IgE Cat Dander 0.39 kU/L; E005 - IgE Dog Dander 0.49 kU/L; E072-IgE Mouse Urine <0.10 kU/L; G002 IgE Bermuda Grass 0.58 kU/L; G006 - IgE Timothy Grass 2.39 kU/L; I006-IgE Cockroach, German <0.10 kU/L; Immunoglobulin E 66 kU/L (<OR=114); M001 IgE Penicillium chrysogen <0.10 kU/L; M002 - IgE Cladosporium herbar <0.10 kU/L; M003 - IgE Aspergillus fumigat <0.10 kU/L; M006 - IgE Alternaria alternat 0.95 kU/L; T001 IgE Maple/Box Elder 0.67 kU/L; T003 IgE Common Silver Birch 1.75 kU/L; T006 - IgE Cedar, Mountain <0.10 kU/L; T008 IgE Elm, American 0.15 kU/L; T011 - IgE Maple Leaf Sycamore 0.13 kU/L; T014 - IgE Cottonwood 0.11 kU/L; T015 - IgE Ash, White 0.27 kU/L; T070 - IgE White Mulberry <0.10 kU/L; W001 - IgE Ragweed, Short 5.06 kU/L; W006 - IgE Mugwort 0.13 kU/L; W014 IgE Pigweed, Common 0.16 kU/L; W018 IgE Sheep Sorrel 0.24 kU/L
[2025-02-24 13:39] LABS: ANA Titer 2 1:40 titer; Anti Nuclear Antibody Pattern Nuclear, Speckled; Anti Nuclear Antibody Screen POSITIVE (NEGATIVE); Anti Nuclear Antibody Titer 1:40 titer
[2025-03-02 12:09] LABS: Antibody to SS-A Antigen <1.0 NEG; Antibody to SS-B Antigen <1.0 NEG
== END 2025-02-22 10:11 | disposition home or self-care (01) ==
LOC: HO.LAB 10:10
PROVIDERS: PCP Internal Medicine; Visit Provider Hospitalist
DX: J18.9 Pneumonia, unspecified organism (principal); R91.1 Solitary pulmonary nodule; R21 Rash and other nonspecific skin eruption
CPT/HCPCS: 36415; 80048; 82785; 85025; 85652; 86003; 86038; 86039; 86235

== ENCOUNTER 2025-07-21 10:02 | Outpatient (AMB) | payer BC, SELFPAY ==
--- NOTE | 2025-07-21 10:08 | MHC.OFFVIS ---
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 She is an avid golfer. She noticed that usually she was able to play the whole gain without any significant respiratory complaints. But then she started developing some increasing shortness of breath specially when going up a small hill. She start using her inhaler more often. Subsequently symptoms got much worse sometime in August where she developed some laryngitis sore throat in addition to the worsening respiratory symptoms. She had gone to an urgent care where she had an x-ray demonstrating bibasilar opacities suggesting bilateral pneumonia. She was given antibiotics and a follow-up with primary care doctor. The patient had a repeat chest x-ray in September and the findings are still there. Her other symptoms such it up but she was still complaining of dyspnea on exertion. She was referred to Pulmonary. Ultimately underwent a CT scan of the chest. The CT scan of the chest was noncontrast. Again demonstrating now the airspace disease primarily at the bases bilaterally. Dense ground-glass areas with consolidation. Also had a cyst in the left upper lung area. The suspicion was that the patient had organizing pneumonia. She was given additional antibiotics in case was infectious and also given prednisone in case it was cryptogenic organizing pneumonia. However, the patient did not take the prednisone from the get go. She was concerned about taking so much steroids. Therefore she completed the antibiotics. She did start the prednisone few days prior to her next CT scan in December of 2022. However, the patient was still symptomatic with shortness of breath and her CT scan of the chest did not demonstrate any significant changes. Therefore she started taking the prednisone more regularly initially prednisone 40 mg daily which she took for about 8 weeks from mid December to February. Then her prednisone was decreased to 20 mg daily until her CT scan that occurred in [place] [address]. The CT scan demonstrated very similar findings with a dense areas of ground-glass in the bases not was increasing reticular changes likely from scarring. During the visit we did go for brief walking oximetry the patient did have increase heart rate up to 115 with minimal activity and the pulse ox did decrease down to about 92% with activity. The patient did not qualify for oxygen. The patient does state that when she is going up hills she has an oximeter and does go to the high 80s when she is really exerting herself. She is no longer on prednisone. The patient does have a rescue inhaler that she uses as needed. As far as medications no real new medications except for the prednisone and her cholesterol medication. We also talked about potential exposures she does not smoke cigarettes and she does not do any vaping or any other inhalational or recreational drugs. She does have a hiatal hernia and she was evaluated by GI with an endoscopy and a colonoscopy. She does have a hot tub but is outside. No other fumes or toxins that she can think of. 05/13/2023 the patient is here for a pulmonary follow-up visit. Overall she is feeling a little better. She still playing golf. Before she would get short of breath and tachypneic after 12 holes of golf. Now she is able to get to 18 which is very happy about. She did start the Symbicort inhaler after the bronchoscopy. Seems like it is helping. She does have some hoarseness therefore will provide with air the AeroChamber. She had hoarseness even before the inhaler was started though. During the bronchoscopy she did have some evidence of inflammation of the larynx likely from coughing a copy also from reflux disease. Also interestingly the airways demonstrate significant bronchomalacia that was not expected with some evidence of bronchitis. In addition to that we did do a BAL from the right middle lobe and did demonstrate some slight pinkish return suggesting some degree of diffuse alveolar hemorrhage. We did request BAL sent for hemosiderin-laden macrophages in there there were indeed present. The findings of hemosiderin-laden macrophages suggest the possibility of a mild vasculitis versus can also be related to lung injury or her interstitial lung conditions that may also resulted in mild hemosiderosis. Therefore, will have her undergo celiac testing which sometimes can result in hemosiderosis as well as other laboratories. Patient also had significant bronchomalacia during the bronchoscopy which was not expected. Again we talked about different differential diagnoses that can result in the bronchomalacia itself. Will go ahead and request the barium swallow to rule out the possibility of underlying reflux disease. Patient is also scheduled to have a repeat CT scan. Clinically the patient is feeling a little better although if the CT scan still demonstrates abnormal findings on the CT scan will consider a surgical biopsy. She did have transbronchial biopsies although is very technically difficult and although we had normal benign bronchial tissue no mention about bronchioalveolar tissue making the biopsies less diagnostic still the normal findings is reassuring. 07/08/2023 the patient is here for a pulmonary follow-up visit. The patient did follow-up with thoracic surgery but opted on not having a biopsy as of yet. Therefore, we made a referral to [facility] for her to get a 2nd opinion there. As far as her breathing is about the same. Still complaining of dyspnea on exertion. [id number] severity. She has not noticed any significant improvement or worsening sense back in December 2022. Prior to that she had gone to [place] and did she did undergo a holistic type of therapy that provide her some relief at least from the pleuritic chest pain. We again reviewed her biopsy results which although were reassuring were nondiagnostic. She did talk about considering a cryo biopsy instead of a wedge biopsy. I explained to her that her interstitial lung disease pretty peripheral and also on the basis. Also during the bronchoscopy that I performed she had a lot of dynamic movement of her diaphragm making it difficult to safely biopsy the peripheral parenchyma. I do believe that if she wants a definitive answer it would be best provided with a wedge biopsy. Also she has been seen sick for about a year ready and therefore I would think that a more definitive intervention would be indicated. Her last CT scan of the chest was done back in May 2023. Again demonstrating the bibasilar airspace disease with some errands of ground-glass but no honeycombing noted. The differential includes IPF, chronic hypersensitivity pneumonitis and also fibrotic NSIP. But not believe that this is cryptogenic organizing pneumonia based on the fact that he just has not responded to corticosteroid therapy. The patient also has significant allergies with an elevated IgE. We did discuss staring Xolair in the future once her ILD workup was established. 11/06/2023 the patient is here for a pulmonary follow-up visit. Overall she is doing fairly well from a respiratory status. Denies any significant shortness of breath at rest. She does have some dyspnea with activity. Mild in severity. She has been exercising regular basis. The patient did follow-up in [place]. She has been very happy with her experience. 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 She has been having some hip discomfort she is wondering if that musculoskeletal symptoms could be related to the underlying connective tissue disease. The recommendation was for her to get vaccinated for both shingles and RSV as well as flu and dentist start mycophenolate. The patient did have PFTs and also a CT scan in [place]. She is going to follow closely there as well. From an asthma standpoint the patient seems to be doing okay her IgE levels were elevated but seems like her asthma symptoms are better. During the visit we did go for brief walking oximetry should maintain a pulse ox 96%. This is reassuring. We also talked about the importance of pulmonary rehabilitation. We also talked about antifibrotic agents in case the fibrosis gets worse but at this point is been reassuring that he has not significantly changed based on the CT scans that we have. 06/24/2024 the patient is here for a pulmonary follow-up visit. Overall she is doing okay. She is on the full dose of mycophenolate 1500 mg twice a day. She is tolerating it well without any adverse effects. She is being monitored closely every 3-4 months at [facility]. The patient has not had to use her rescue inhaler as often and she stopped using the Symbicort which is reassuring. She is back to exercising and playing golf. Although she still has a hard time going up a flight of stairs. We did go for brief walking oximetry in the office and going up a flight of stairs her oxygen oxygen was great at 97%. But heart rate increased quickly to 140 beats per minute and she was visibly dyspneic hard to speak in full sentence. 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 The patient has not been a candidate for office since then has not been any worsening of disease and also has not required any additional immunosuppression at this time. She does have Rheumatology in [place] as well, although, I do believe that a local grocery store manager would also be helpful in order to follow her. The patient also has had pulmonary function studies. I do believe that she would be a great candidate for pulmonary rehabilitation. Will go ahead and request a stress echo to assess for exercise-induced pulmonary hypertension and will see about getting her in to pulmonary rehabilitation at this time.\ 10/26/2024 the patient is here for a pulmonary follow-up visit. Overall the patient has been doing okay. She has been dealing with some hip and back issues. He is causing significant pain and discomfort. She had been seen a specialist in [place] and also saw the grocery store manager locally. [place] likely she has component of osteoarthritis and bursitis. 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 She had been on the 1500 mg b.i.d. of the mycophenolate. She seems to be tolerating it well except for significant constipation. She is going to follow-up in [place] in early spring. She will likely get a CT scan also PFTs. I am hopeful that if she is stable she can decrease her mycophenolate some. She was wondering about Rituxan. Explained to her that if she is finding worsening disease then at that point the [place] team may consider Rituxan. But at this point seems that clinically she is doing well from a respiratory status. She needs to get her flu vaccine. She needs to stop her mycophenolate 1st in order to do that. Also to note she did undergo the echocardiogram demonstrating no evidence of any ischemia and no evidence of any elevations in her end diastolic pressure and for that matter PA pressures. The patient follow-up in 4-6 months. 02/22/2025 the patient is here for pulmonary follow-up visit. She has had pretty eventful few months. 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 Seems more sensory neuro. She was placed on high-dose of prednisone and she did receive some slight improvement. She is monitoring closely working with ENT. Subsequently after that she did receive some cortical steroid shots directly from ENT. She has noticed some improvement she is also here in some tinnitus. After that she was doing some stretching and she felt a pop sensation on the right side of her call still area and started developing some significant right-sided chest discomfort some radiating from the back. She did go to [facility] when she had an x-ray demonstrating no fractures. They thought it was likely musculoskeletal. She likely pulled a muscle. [facility] to assess the fact that her vertebral body had a slight compression on the right side and bring up the question of radiculopathy. So therefore she is going to have the MRI done soon and then she is going to follow-up with them and also consider physical therapy. She continues on the mycophenolate 3 g a day. At no point does Rheumatology and Pulmonary in [place] would want to decrease her dose. She did have a CT scan and also a PFTs that were initially reassuring. Then they did mention that there was a new 12 mm ground-glass nodular density. Therefore she is going to have another repeat CAT scan in 6 months to follow-up with that. Explained to her that that area is pretty abnormal and is difficult to differentiate her interstitial lung disease from a concomitant process and I do agree that repeating the CAT scan in 6 months is warranted. In addition, the patient started developing a rash. She had gotten a prescription for Flexeril when she pulled the muscle potentially. Therefore thinks that the only new medication was the Flexeril that could have resulted in the rash. She is taking Benadryl. She has caused some drowsiness. She can switch over to Zyrtec she can take the twice a day. I will have her get some allergy testing to him some allergy levels to assess to see if there is anything else that could be contributing to this allergic rash. 07/21/2025 the patient is here for pulmonary follow-up visit. Since we last spoke she started having significant back pain. She was diagnosed with a compression fracture. During the time she was getting cortisol shots to her hip because of bone spurs and bursitis. She did follow-up with Endocrine. For now she is going to stop the cortisone shots. She may need to undergo hip surgery. She is going to see an orthopedic doctor soon. In the meantime she did follow-up in [place] with pulmonary. The patient did have a repeat CT scan of the chest which is reassuring with interval improvement of the ground-glass opacities. She continues on 3 g of mycophenolate and right now the plan is for her to continue the current dose. Her rash is also better. She was having hives the last time we saw her. She does have underlying allergies. Right now she has allergies to ragweed and other multiple environmental allergies. The more concerning allergy he has a allergy to mold. She will be looking to test her home for any underlying mold that can potentially worsen her breathing. She will follow up in 6 months if any issues arise she can always call for an earlier assessment. 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 Asthma Allergies Acute respiratory failure Tachycardia ILD (interstitial lung disease) Pneumonia Surgical History History of abdominoplasty (~2020) History of foot surgery History of bilateral breast reduction surgery (~2020) History of esophagogastroduodenoscopy (EGD) History of colonoscopy History of cholecystectomy (~2015) History of bronchoscopy Social History Patient Tobacco Use Status: Never used Tobacco Review of Systems Const Denies chills, Denies fatigue, Denies fever(s), Denies weight gain and Denies weight loss Eyes Reports no additional complaints ENT Denies dizziness, Reports hearing loss and Reports tinnitus Card Denies chest pain, Denies chest pain at rest, Denies leg edema, Denies lightheadedness, Denies palpitations, Denies dyspnea on exertion, Denies orthopnea and Denies other Resp Denies cough, Denies pain on inspiration, Denies dyspnea on exertion and Denies wheezing GI Denies hematochezia and Denies change in stool character Musc Denies abnormal gait, Reports back pain, Reports myalgias, Reports arthralgias, Denies muscle weakness, Denies numbness, Denies radiating pain into limb and Denies tingling Skin/Breast Denies rash Neuro Denies abnormal gait, Denies dizziness, Denies numbness and Denies tingling Endo Denies fatigue and Denies palpitations Jorge/Lymph Denies easy bleeding, Denies easy bruising and Denies lymphadenopathy Aller/Immun Denies wheezing Physical Exam Vital Signs: Last Vital Signs Pulse 90 07/21/25 10:09 BP 110/64 07/21/25 10:09 Pulse Ox 98 10/08/25 10:09 Oxygen Delivery Method Room Air 07/21/25 10:09 BMI result Body Mass Index 32.9 Const General: comfortable HEENT Head: Yes normocephalic Neck Neck: Yes supple Chest Chest palpation & inspection: normal inspection of the chest Resp Effort & Inspection: normal respiratory effort Auscultation: no rales and diminished lung sounds Cardio Rate: regular rate Rhythm: regular rhythm Heart sounds: S1 normal heart sound present and S2 normal heart sound present GI Palpation (GI): Soft to palpation Skin Rashes: rashes noted Extrem General: Yes no clubbing, cyanosis or edema Assessment & Plan Assessment & Plan (1) Asthma: Code(s): J45.909 - Unspecified asthma, uncomplicated Category: Medical Qualifiers: Asthma complication type: uncomplicated Asthma persistence: persistent Asthma severity: moderate Qualified Code(s): J45.40 - Moderate persistent asthma, uncomplicated (2) Allergies: Code(s): T78.40XA - Allergy, unspecified, initial encounter Category: Medical Qualifiers: Encounter type: subsequent encounter Qualified Code(s): T78.40XD - Allergy, unspecified, subsequent encounter (3) ILD (interstitial lung disease): Comment: ?NSIP Code(s): J84.9 - Interstitial pulmonary disease, unspecified Category: Medical (4) Bronchomalacia: Comment: based on bronchoscopy Code(s): J98.09 - Other diseases of bronchus, not elsewhere classified Category: Medical (5) Antisynthetase syndrome: Code(s): D89.89 - Other specified disorders involving the immune mechanism, not elsewhere classified Category: Medical (6) Dyspnea: Code(s): R06.00 - Dyspnea, unspecified Category: Medical Qualifiers: Dyspnea type: dyspnea on exertion Qualified Code(s): R06.09 - Other forms of dyspnea (7) Pulmonary fibrosis: Code(s): J84.10 - Pulmonary fibrosis, unspecified Category: Medical (8) Rash: Comment: hives are resolved. Does have significant environmental allergies Code(s): R21 - Rash and other nonspecific skin eruption Category: Medical Plan continue Mycophenalate 3gm/daily as per [facility] Will continue to F/U with [facility] Lung center and Rheumatology [facility] as needed Reflux diet zyrtec F/U 6 months Coding Level of Care Code Est Pt Level 4 (09924) Complex EM visit Add On G2211 Diagnoses Moderate persistent asthma without complication J45.40 Asthma complication type: uncomplicated Asthma persistence: persistent Asthma severity: moderate Allergy, subsequent encounter T78.40XD Encounter type: subsequent encounter ILD (interstitial lung disease) J84.9 Bronchomalacia J98.09 Antisynthetase syndrome D89.89 Dyspnea on exertion R06.09 Dyspnea type: dyspnea on exertion Pulmonary fibrosis J84.10 Rash R21 Time Spent (min) 18
[2025-07-21 10:09] VITALS: BP 110/64; PULSE 90; O2SAT 98; BMI 32.9
== END 2025-07-21 10:47 | disposition home or self-care (01) ==
LOC: HO.HPS 10:03
PROVIDERS: PCP Internal Medicine; Visit Provider Hospitalist
DX: J45.40 Moderate persistent asthma, uncomplicated (principal); T78.40XD Allergy, unspecified, subsequent encounter; J84.9 Interstitial pulmonary disease, unspecified; J98.09 Other diseases of bronchus, not elsewhere classified; D89.89 Other specified disorders involving the immune mechanism, not elsewhere classified; R06.09 Other forms of dyspnea; J84.10 Pulmonary fibrosis, unspecified; R21 Rash and other nonspecific skin eruption
CPT/HCPCS: 99214